=== PATIENT | female | born 1940 | race Caucasian/White ===

== ENCOUNTER → 2018-01-21 | Outpatient (CLI) | payer OTHER | END | disposition home or self-care (01) | LOC: C.MAMM 09:22 | PROVIDERS: ATTEND Physician Assistant | DX: M85.88 Other specified disorders of bone density and structure, other site (principal) ==

== ENCOUNTER 2019-01-28 20:38 | Inpatient (IN) ==
[2019-01-28] MEDS ORDERED: SODIUM CHLORIDE 0.9% 500 ML IV SCH (21:30)
[2019-01-28 21:40] LABS: Basophils # (auto) 0.03 K/uL (0-0.2); Basophils % (auto) 0.3 %; Eosinophils # (auto) 0.29 K/uL (0-0.5); Eosinophils % (auto) 3.1 %; Hematocrit (blood only) 31.2 % (37-47); Hemoglobin 9.4 g/dL (12.0-16.0); Immature Granulocytes # (auto) 0.01 K/uL (0.00-0.02); Immature Granulocytes % (auto) 0.1 %; Lymphocytes # (auto) 2.69 K/uL (1.2-3.4); Lymphocytes % (auto) 28.5 %; Mean Corpuscular Hgb Conc 30.1 g/dL (32-36); Mean Corpuscular Volume 83.6 fL (80-100); Monocytes % (auto) 9.5 %; Neutrophils # (auto) 5.53 K/uL (1.4-6.5); Neutrophils % (auto) 58.5 %; Platelet Count 388 K/uL (130-400); RDW Coefficient of Variation 20.1 % (11.5-14.5); RDW Standard Deviation 61.9 fL (36.4-46.3); Red Blood Count 3.73 M/uL (4.2-5.4); White Blood Count 9.45 K/uL (4.8-10.8)
--- NOTE | 2019-01-28 21:47 | XRay Report ---
XR chest 1V portable CLINICAL HISTORY: 78 years-old Female presenting with pain. TECHNIQUE: Portable upright AP view of the chest was obtained. COMPARISON: None. FINDINGS: Atherosclerosis of the aortic arch. Cardiac silhouette enlarged. Pulmonary vasculature prominence. Ba ndlike opacities at the lung bases, left greater than right. No large effusion or pneumothorax. Degen erative changes of the thoracic spine. IMPRESSION: 1. Cardiomegaly with mild volume overload. 2. Extensive bibasilar scarring suspected. Electronically signed by: Sam Pradhan M.D. 01/28/2019 9:46 PM
[2019-01-28 21:52] LABS: Alanine Aminotransferase 30 U/L (12-78); Albumin Level 2.7 gm/dl (3.4-5.0); Aspartate Aminotransferase 27 U/L (15-37); BUN Creatinine Ratio 19.7 (10-20); Blood Urea Nitrogen 15 mg/dl (7-18); Calcium 8.6 mg/dl (8.5-10.1); Carbon Dioxide 29 mmol/L (21-32); Chloride 100 mmol/L (98-107); Creatinine Clr Calc Pharmacy 51.8 ml/min; Est GFR (African American) 89.7; Est GFR (Non-African American) 77.4; Glucose 99 mg/dl (70-99); Partial Thromboplastin Ratio 0.9; Partial Thromboplastin Time 23.4 Seconds (21.0-31.0); Potassium 4.1 mmol/L (3.5-5.1); Prothrombin Time 10.6 Seconds (9.0-12.0); Sodium 135 mmol/L (136-145)
[2019-01-28 21:57] LABS: Albumin Globulin Ratio 0.5 (0.9-2); Alkaline Phosphatase 195 U/L (45-117); Bilirubin,Total 0.3 mg/dl (0.2-1); Globulin 5.6 gm/dl (2.5-4.0); Total Protein 8.3 gm/dl (6.4-8.2); Troponin I < 0.015 ng/ml (0-0.045)
[2019-01-28 21:59] LABS: Hypochromasia Present
[2019-01-28] MEDS ORDERED: IOVERSOL 100ml IV PRN (22:00)
--- NOTE | 2019-01-28 22:18 | CT Scan Report ---
CT abd pelvis IV con only CLINICAL HISTORY: 78 years-old Female presenting with RLQ pain. TECHNIQUE: Multidetector CT of the abdomen and pelvis was performed after the administration of intra venous contrast. IV contrast: 90 mL of Optiray 320. One or more dose lowering techniques were used co nsistent with the principles of ALARA (as low as reasonably achievable), including automatic exposure control, mA or kV adjustment to individual patient size, and/or use of iterative reconstruction. COMPARISON: None. CT DOSE (mGy.cm): The estimated cumulative dose is 275.00 mGy.cm. FINDINGS: Gas Check Pad Maker topogram: Cholecystectomy clips. Lung bases: Mitral annular calcification. Top normal heart size. No pericardial or pleural effusion. Minimal dependent changes likely atelectasis. Liver: Normal morphology. No liver lesion. Patent hepatic vasculature. Biliary: Mild biliary ductal prominence likely a reservoir effect in the post cholecystectomy state. Gallbladder surgically absent. Pancreas: Mild parenchymal atrophy. Spleen: Normal. Adrenal glands: Normal. Kidneys and ureters: Well-defined hypodense lesion arising from the upper pole of the left kidney lik dennis simple cyst. Additional smaller simple cyst at the lower pole of the left kidney. No nephrolithia sis or hydronephrosis. Ureters nondistended. Bladder: The configuration of the bladder suggests pelvic ligamentous laxity. Bladder otherwise joselo l. Pelvic organs: Uterus and ovaries normal. Bowel: Significant circumferential wall thickening along and extended length of ascending colon with pericolonic fat infiltration. Enhancing nodular soft tissue within the mesentery (series 3 image 223) . The appendix is normal. No bowel obstruction. Peritoneal cavity: No free fluid or intraperitoneal gas. Lymph nodes: Pathologically enlarged and heterogeneously enhancing lymph lymph nodes in the right mid abdominal mesentery the largest measures 10 mm in short axis. Vasculature: Atherosclerosis of the normal caliber abdominal aorta. IVC patent. Abdominal wall: Normal. Musculoskeletal: Degenerative changes of the spine. IMPRESSION: 1. An extended length of circumferential wall thickening of the ascending colon with associated nodu lar infiltrative soft tissue extending into the mesentery and associated lymphadenopathy in the mesen irving. This represents a primary colonic neoplasm until probe and otherwise. No other sites of metasta ses in the abdomen or pelvis. Gastroenterology consultation for colonoscopy recommended. The report will be called/faxed according to standard departmental protocol. Electronically signed by: Sam Pradhan M.D. 01/28/2019 10:17 PM
[2019-01-28] MEDS ORDERED: POLYETHYLENE (MIRALAX) 17 GM PACK PO ONE (22:22)
--- NOTE | 2019-01-28 22:59 | Emergency Department Note ---
Entered by Yury Sawyer acting as a scribe for Edgard Miller DO History of Present Illness General Chief complaint: Back Injury/Pain Stated complaint: RIGHT SIDE PAIN BACK PAIN, SOB Time Seen by Provider: 01/28/19 21:08 Source: patient History of Present Illness Provider complaint: Right flank pain Onset (ago): week(s) (1.5 weeks ) Location: right (Flank) Radiation: back and abdomen Pain Consistency: + constant Maximum Pain Intensity: 6 Exacerbated By: + movement Associated symptoms: + cough, + shortness of breath and + other (No hematochezia); no chest pain and no nausea/vomiting The patient is a 78 year old female who presents to the Emergency Room with complaints of constant right flank pain that started about a week and a half ago. The pain radiates to her back and her right lower quadrant. She states that moving makes the pain worse and nothing has made it better, however she did not try any medications. The patient also mentioned that eating does not affect the pain. She does have a history of being anemic and states recently she was at the doctors and two of her stool samples came back positive for blood. However, she currently denies any hematochezia as well as any nausea, vomiting, or diarrhea. The patient's family at bedside also noted that she becomes short of breath at times because of her anemia. The patient does still have her appendix. Home Medications Home Medications Medication Instructions Recorded Confirmed Type aspirin 81 mg PO DAILY 01/28/19 01/28/19 History atorvastatin 40 mg PO DAILY 01/28/19 01/28/19 History omeprazole 20 mg PO BID 01/28/19 01/28/19 History Past Med/Surg History Medical History Anemia Heme positive stool Surgical History Hx of cholecystectomy Family History Other Family history non-contributory Social History Feels Safe at Home: Yes Smoking Status: Former smoker Review of Systems See HPI for pertinent positives & negatives. and A total of 10 systems reviewed and were otherwise negative Physical Exam Vital Signs Vital Signs - 24 hr 01/28/19 20:43 01/28/19 23:49 01/29/19 00:36 Temperature 37.5 C Temperature Source Oral Sepsis Recent Fever Within 48 Hours No Sepsis Action Taken by Nursing No Action Required Pulse Rate 98 H 88 Pulse Rate [Right Finger] 85 Respiratory Rate 20 19 19 Respiratory Effort / Characteristics Non-Labored Respiratory Depth Normal Blood Pressure 151/89 H 151/89 H Blood Pressure [Left Arm] 150/99 H Blood Pressure Mean 109 Blood Pressure Mean [Left Arm] 116 Pulse Oximetry 98 95 99 Oxygen Delivery Method Room Air Nasal Cannula 01/29/19 00:51 Temperature Temperature Source Sepsis Recent Fever Within 48 Hours Sepsis Action Taken by Nursing Pulse Rate Pulse Rate [Right Finger] 92 H Respiratory Rate 20 Respiratory Effort / Characteristics Respiratory Depth Blood Pressure Blood Pressure [Left Arm] 138/79 Blood Pressure Mean Blood Pressure Mean [Left Arm] 98 Pulse Oximetry 93 Oxygen Delivery Method GENERAL: Patient is awake alert in no acute distress patient is resting comfortably and showing no signs of anxiety EYES: The conjunctivae are clear. The pupils are round and reactive. EARS, NOSE, MOUTH AND THROAT: The nose is without any evidence of any deformity. Mucous membranes are moist tongue is midline NECK: The neck is nontender and supple. RESPIRATORY: Normal respiratory effort is noted there is no evidence of wheezing rhonchi or rales CARDIOVASCULAR: Regular rate and rhythm noted there no murmurs rubs or gallops normal S1 normal S2 GASTROINTESTINAL: The abdomen is soft and mildly distended. There is right lower quadrant tenderness to palpation. There is fullness in the right lower quadrant to palpation. MUSCULOSKELETAL/EXTREMITIES: There is no evidence of gross deformity full range of motion is noted in the hips and shoulders SKIN: There is no obvious evidence of any rash. There are no petechiae, pallor o r cyanosis noted. NEUROLOGIC: Patient is awake alert and oriented x3. Course 2119: Past medical records reviewed. The patient was evaluated in room C12B, and a complete history and physical examination were performed. 223: I spoke to Dr. Camacho ESCOBAR about the patient's case and he recommends that she receive a direct colonoscopy for biopsy followed by a surgical follow up as an outpatient. She can also stay as an inpatient if she would like. 2245: I spoke to the patient and she would feel more comfortable staying in the hospital. 2250: I spoke to Dr. Rausch - [facility] Hospitalist about the patient's case and she is going to accept her for further evaluation. Consultations Consultation #1: I spoke to Dr. Camacho ESCOBAR about the patient's case and he recommends that she receive a direct colonoscopy for biopsy followed by a surgical follow up as an outpatient. She can also stay as an inpatient if she would like. Time: 22:36 Consultation #2: I spoke to Dr. Rausch - [facility] Hospitalist about the patient's case and she is going to accept her for further evaluation. Time: 22:50 Administered Medications Ioversol (Optiray 320 100ml) 90 ml IV ONCE PRN PRN Reason: Interaction Checking Stop: 02/01/19 21:59 Last Admin: 01/28/19 22:01 Dose: 90 ml Documented by: [id number] Discontinued Medications Sodium Chloride (Nss) 500 mls @ 999 mls/hr IV .Q31M SRIDHAR Stop: 01/28/19 22:00 Last Infusion: 01/28/19 22:47 Dose: 0 mls/hr Documented by: [id number] Admin: 01/28/19 21:27 Dose: 999 mls/hr Documented by: [id number] Polyethylene Glycol (Miralax Powder Packet) 17 gm PO DAILY ONE Stop: 01/28/19 22:23 Last Admin: 01/28/19 22:32 Dose: Not Given Documented by: [id number] Medical Decision Making Differential Diagnosis Differential diagnoses includes but is not limited to gastritis, peptic ulcer disease, GERD, gallbladder disease, pancreatitis, small bowel obstruction, acute coronary syndrome, pericarditis, ischemic bowel, irritable bowel disease, irritable bowel syndrome, appendicitis, diverticulitis, malignancy, hernia, urinary tract infection, torsion, perforation, trauma, infectious. Medical Records Attestation: I reviewed the patient's medical records. Home Medications Current Medication List: was personally reviewed by me Laboratory Data Attestation: I reviewed the patient's lab results. Result diagrams: 01/28/19 21:08 01/28/19 21:08 Lab Results 01/28/19 01/28/19 01/28/19 Range/Units 21:08 21:08 21:08 WBC 9.45 (4.8-10.8) K/uL RBC 3.73 L (4.2-5.4) M/uL Hgb 9.4 L (12.0-16.0) g/dL Hct 31.2 L (37-47) % MCV 83.6 (80-100) fL MCH 25.2 (25-34) pg MCHC 30.1 L (32-36) g/dL RDW Std Deviation 61.9 H (36.4-46.3) fL RDW Coeff of Lizzie 20.1 H (11.5-14.5) % Plt Count 388 (130-400) K/uL MPV 9.0 (7.4-10.4) fL Immature Gran % (Auto) 0.1 % Neut % (Auto) 58.5 % Lymph % (Auto) 28.5 % Villalba % (Auto) 9.5 % Eos % (Auto) 3.1 % Baso % (Auto) 0.3 % Immature Gran # (Auto) 0.01 (0.00-0.02) K/uL Neut # (Auto) 5.53 (1.4-6.5) K/uL Lymph # (Auto) 2.69 (1.2-3.4) K/uL Villalba # (Auto) 0.90 H (0.11-0.59) K/uL Eos # (Auto) 0.29 (0-0.5) K/uL Baso # (Auto) 0.03 (0-0.2) K/uL Hypochromasia Present PT 10.6 (9.0-12.0) Seconds INR 1.0 (0.9-1.1) APTT 23.4 (21.0-31.0) Seconds PTT Ratio 0.9 Sodium 135 L (136-145) mmol/L Potassium 4.1 (3.5-5.1) mmol/L Chloride 100 (98-107) mmol/L Carbon Dioxide 29 (21-32) mmol/L Anion Gap 6.0 (3-11) BUN 15 (7-18) mg/dl Creatinine 0.75 (0.6-1.2) mg/dl Est Cr Clr Drug Dosing 51.8 ml/min Est GFR ( Amer) 89.7 Est GFR (Non-Af Amer) 77.4 BUN/Creatinine Ratio 19.7 (10-20) Glucose 99 (70-99) mg/dl Calcium 8.6 (8.5-10.1) mg/dl Total Bilirubin 0.3 (0.2-1) mg/dl AST 27 (15-37) U/L ALT 30 (12-78) U/L Alkaline Phosphatase 195 H (45-117) U/L Troponin I < 0.015 (0-0.045) ng/ml Total Protein 8.3 H (6.4-8.2) gm/dl Albumin 2.7 L (3.4-5.0) gm/dl Globulin 5.6 H (2.5-4.0) gm/dl Albumin/Globulin Ratio 0.5 L (0.9-2) Lipase 99 (73-393) U/L Carcinoembryonic Ag (0-2.5) ng/ml 01/28/19 Range/Units 21:08 WBC (4.8-10.8) K/uL RBC (4.2-5.4) M/uL Hgb (12.0-16.0) g/dL Hct (37-47) % MCV (80-100) fL MCH (25-34) pg MCHC (32-36) g/dL RDW Std Deviation (36.4-46.3) fL RDW Coeff of Lizzie (11.5-14.5) % Plt Count (130-400) K/uL MPV (7.4-10.4) fL Immature Gran % (Auto) % Neut % (Auto) % Lymph % (Auto) % Villalba % (Auto) % Eos % (Auto) % Baso % (Auto) % Immature Gran # (Auto) (0.00-0.02) K/uL Neut # (Auto) (1.4-6.5) K/uL Lymph # (Auto) (1.2-3.4) K/uL Villalba # (Auto) (0.11-0.59) K/uL Eos # (Auto) (0-0.5) K/uL Baso # (Auto) (0-0.2) K/uL Hypochromasia PT (9.0-12.0) Seconds INR (0.9-1.1) APTT (21.0-31.0) Seconds PTT Ratio Sodium (136-145) mmol/L Potassium (3.5-5.1) mmol/L Chloride (98-107) mmol/L Carbon Dioxide (21-32) mmol/L Anion Gap (3-11) BUN (7-18) mg/dl Creatinine (0.6-1.2) mg/dl Est Cr Clr Drug Dosing ml/min Est GFR ( Amer) Est GFR (Non-Af Amer) BUN/Creatinine Ratio (10-20) Glucose (70-99) mg/dl Calcium (8.5-10.1) mg/dl Total Bilirubin (0.2-1) mg/dl AST (15-37) U/L ALT (12-78) U/L Alkaline Phosphatase (45-117) U/L Troponin I (0-0.045) ng/ml Total Protein (6.4-8.2) gm/dl Albumin (3.4-5.0) gm/dl Globulin (2.5-4.0) gm/dl Albumin/Globulin Ratio (0.9-2) Lipase (73-393) U/L Carcinoembryonic Ag < 0.5 (0-2.5) ng/ml Imaging Data Radiologist's Impression: Radiology results as stated below per my review and th e radiologist's interpretation: XR chest 1V portable CLINICAL HISTORY: 78 years-old Female presenting with pain. TECHNIQUE: Portable upright AP view of the chest was obtained. COMPARISON: None. FINDINGS: Atherosclerosis of the aortic arch. Cardiac silhouette enlarged. Pulmonary vasculature prominence. Bandlike opacities at the lung bases, left greater than right. No large effusion or pneumothorax. Degenerative changes of the thoracic spine. IMPRESSION: 1. Cardiomegaly with mild volume overload. 2. Extensive bibasilar scarring suspected. Electronically signed by: Sam Pradhan M.D. 01/28/2019 9:[address] abd pelvis IV con only CLINICAL HISTORY: 78 years-old Female presenting with RLQ pain. TECHNIQUE: Multidetector CT of the abdomen and pelvis was performed after the administration of intravenous contrast. IV contrast: 90 mL of Optiray 320. One or more dose lowering techniques were used consistent with the principles of ALARA (as low as reasonably achievable), including automatic exposure control, mA or kV adjustment to individual patient size, and/or use of iterative reconstruction. COMPARISON: None. CT DOSE (mGy.cm): The estimated cumulative dose is 275.00 mGy.cm. FINDINGS: Automation Manager topogram: Cholecystectomy clips. Lung bases: Mitral annular calcification. Top normal heart size. No pericardial or pleural effusion. Minimal dependent changes likely atelectasis. Liver: Normal morphology. No liver lesion. Patent hepatic vasculature. Biliary: Mild biliary ductal prominence likely a reservoir effect in the post cholecystectomy state. Gallbladder surgically absent. Pancreas: Mild parenchymal atrophy. Spleen: Normal. Adrenal glands: Normal. Kidneys and ureters: Well-defined hypodense lesion arising from the upper pole of the left kidney likely simple cyst. Additional smaller simple cyst at the lower pole of the left kidney. No nephrolithiasis or hydronephrosis. Ureters nondistended. Bladder: The configuration of the bladder suggests pelvic ligamentous laxity. Bladder otherwise normal. Pelvic organs: Uterus and ovaries normal. Bowel: Significant circumferential wall thickening along and extended length of ascending colon with pericolonic fat infiltration. Enhancing nodular soft tissue within the mesentery (series 3 image 223). The appendix is normal. No bowel obstruction. Peritoneal cavity: No free fluid or intraperitoneal gas. Lymph nodes: Pathologically enlarged and heterogeneously enhancing lymph lymph nodes in the right mid abdominal mesentery the largest measures 10 mm in short axis. Vasculature: Atherosclerosis of the normal caliber abdominal aorta. IVC patent. Abdominal wall: Normal. Musculoskeletal: Degenerative changes of the spine. IMPRESSION: 1. An extended length of circumferential wall thickening of the ascending colon with associated nodular infiltrative soft tissue extending into the mesentery and associated lymphadenopathy in the mesentery. This represents a primary colonic neoplasm until probe and otherwise. No other sites of metastases in the abdomen or pelvis. Gastroenterology consultation for colonoscopy recommended. The report will be called/faxed according to standard departmental protocol. Electronically signed by: Sam Pradhan M.D. 01/28/2019 10:17 PM ECG Data Attestation: I personally reviewed and interpreted this ECG as follows: Indication: abdominal pain Rate (beats per minute): 92 Rhythm: normal sinus Findings: + LBBB; no PVC Comparison ECG Date: no prior available Blood Pressure Blood Pressure Findings: Elevated blood pressure Blood Pressure Disposition: further management by hospitalist CHRIS Garcia The patient is a 78-year-old female who presented to the emergency department for an evaluation of right lower quadrant abdominal pain. The patient is currently being worked up for anemia and heme positive stools. She is scheduled for a colonoscopy in February. I discussed the patient's laboratory and radiographic studies with her. She was treated with IV fluids in the emergency department. At this time she does appear to have a rather large right-sided colon mass which appears to be consistent with neoplasm. I discussed the patient's condition with her primary electric welder helper. At this time he does recommend that we consider having the patient stay as an inpatient for inpatient colonoscopy with follow-up surgical evaluation if this appears to be amenable to surgical treatment. I discussed this plan with the patient and her family. They are agreeable to this plan. I also discussed this case with the [facility] hospitalist group. They have agreed to evaluate patient in the emergency department for further management and disposition. Impression & Plan Colonic mass, Abdominal pain Discharge Plan Visit Data Chief Complaint: Back Injury/Pain Stated Complaint: RIGHT SIDE PAIN BACK PAIN, SOB ED Provider: Edgard Miller Discharge Problem: Colonic mass, Abdominal pain Patient Disposition: Being Evaluated by Hospitalist Discharge Instructions Interventions: ED Discharge Assessment Last Done: 01/29/19 00:36 Forms Stand Alone Forms: My [facility] Prescriptions Prescriptions: No Action aspirin 81 mg Tablet,Delayed Release (Dr/Ec) 81 mg PO DAILY RF: 0 omeprazole 20 mg capsule,delayed release(DR/EC) 20 mg PO BID RF: 0 atorvastatin 40 mg Tablet 40 mg PO DAILY RF: 0 Referrals Referrals: Suze Polanco DO [Primary Care Provider] - Discharge Problem: Abdominal pain Qualifiers: Abdominal location: unspecified location Qualified Code(s): R10.9 - Unspecified abdominal pain The scribe's documentation has been prepared under my direction and personally reviewed by me in its entirety. I confirm that the note above accurately reflects all work, treatment, procedures, and medical decision making performed by me.
--- NOTE | 2019-01-28 23:33 | History & Physical Report ---
Date of Service January 28, 2019 Assessment & Plan (1) Abdominal pain: 78-year-old female with right-sided colon mass on CT abdomen. With abdominal pain, 10 pound weight loss in the last few months and microcytic anemia. Assessment -Colon mass suspicious for neoplasm Plan -ED doctor discussed with GI, plan for colonoscopy tomorrow by Dr. Sauer -N.p.o., maintenance fluids -Pain control FEN/GI: NPO, IVF NSS @ 80 x 2 bags DVT ppx: SCDs. No chemical anticoag await procedure CODE STATUS: FULL as d/w pt DISPO: Med/surg (2) Colonic mass: (3) Microcytic anemia: H&H 9.4/31.2 no active bleeding at this time likely secondary to mass. Follow. (4) Recent unexplained weight loss: History of Present Illness Chief Complaint: Right-sided abdominal pain, persistent anemia, weight loss Primary Care Provider: Suze Polanco, Patient is a 78-year-old female who presents to the ER due to persistent right- sided abdominal pain. She said it began 1 week ago and has progressively gotten worse. It is constant. She initially had constipation and was put on a bowel regimen which did not change the pain. In the ED on CT scan she was found to have a right-sided mass in the ascending colon. She is being admitted for further evaluation and colonoscopy. Recent history includes iron deficiency anemia as of August 2018 treated with iron supplementation. Stool positive for blood. Seen by Dr. Sauer's office. Plan was for outpatient colonoscopy at the end of next month. She also endorses a 10 pound weight loss since a few months ago. Dr. polanco is her PCP. PMH 1. History of cholecystitis, status post cholecystectomy 2. History of hypothyroidism SH: 1. Cholecystectomy 2. Endarterectomy 3. Eye surgery 4. Tubal ligation Social: Former smoker quit at age 62, [id number] history. Lives with her niece and his . Denies alcohol or drug use. Allergies Allergy/AdvReac Type Severity Reaction Status Date / Time Sulfa (Sulfonamide AdvReac Drowsy Verified 01/29/19 02:03 Antibiotics) Home Medications Home Medications Medication Instructions Recorded Confirmed Type aspirin 81 mg PO DAILY 01/28/19 01/28/19 History atorvastatin 40 mg PO DAILY 01/28/19 01/28/19 History omeprazole 20 mg PO BID 01/28/19 01/28/19 History Past Med/Surg History Medical History Anemia Heme positive stool Surgical History History of bilateral tubal ligation History of eye surgery Hx of cholecystectomy Hx of vascular surgery Family History Other Family history non-contributory Social History Preferred Language: British Communication Ability: Effective Clicker 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 Niece and live in the basement. Other Information That Helps Us Care for You: No Feels Safe at Home: Yes Smoking Status: Former smoker Hx Alcohol Use: No Hx Substance Use: No Review of Systems All systems reviewed & are unremarkable except as noted in HPI & below Physical Exam Vital Signs (Past 24 Hours): Last Vital Signs Temp 37.5 C 01/28/19 20:43 Pulse 98 H 01/28/19 20:43 Resp 20 01/28/19 20:43 BP 151/89 H 01/28/19 20:43 Pulse Ox 98 01/28/19 20:43 Physical Exam: Vitals noted as above and within normal limits . GENERAL: Awake, alert to person, place, and time, nontoxic-appearing, in no distress. Family at bedside. HENT: Normocephalic, atraumatic. Mucus membranes appear moist. EYES: Normal conjunctiva. Sclera non-icteric. EOMI. NECK: Supple. Full range of motion. No JVD RESPIRATORY: Clear to auscultation. Normal work of breathing. CARDIAC: Regular rate, normal rhythm. Extremities warm and well perfused. ABDOMEN: Soft, non-distended. moderate tenderness to palpation RLQ. No rebound or guarding. Bowel sounds are normal. NEURO: No focal gross focal motor deficits noted. Sensation in tact. CN II-XII grossly in tact. SKIN: Rash not present. No jaundice noted. Significant lesions not present. PSYCH: Appropriate mood and affect. Cooperative. Exam as done by Jocelyne Evans MD, [facility] Director. Results & Data Laboratory Results 01/28/19 01/28/19 01/28/19 Range/Units 21:08 21:08 21:08 WBC (4.8-10.8) K/uL RBC (4.2-5.4) M/uL Hgb (12.0-16.0) g/dL Hct (37-47) % MCV (80-100) fL MCH (25-34) pg MCHC (32-36) g/dL RDW Std Deviation (36.4-46.3) fL RDW Coeff of Lizzie (11.5-14.5) % Plt Count (130-400) K/uL MPV (7.4-10.4) fL Immature Gran % (Auto) % Neut % (Auto) % Lymph % (Auto) % [place] % (Auto) % Eos % (Auto) % Baso % (Auto) % Immature Gran # (Auto) (0.00-0.02) K/uL Neut # (Auto) (1.4-6.5) K/uL Lymph # (Auto) (1.2-3.4) K/uL [place] # (Auto) (0.11-0.59) K/uL Eos # (Auto) (0-0.5) K/uL Baso # (Auto) (0-0.2) K/uL Hypochromasia PT 10.6 (9.0-12.0) Seconds INR 1.0 (0.9-1.1) APTT 23.4 (21.0-31.0) Seconds PTT Ratio 0.9 Sodium 135 L (136-145) mmol/L Potassium 4.1 (3.5-5.1) mmol/L Chloride 100 (98-107) mmol/L Carbon Dioxide 29 (21-32) mmol/L Anion Gap 6.0 (3-11) BUN 15 (7-18) mg/dl Creatinine 0.75 (0.6-1.2) mg/dl Est Cr Clr Drug Dosing 51.8 ml/min Est GFR ( Amer) 89.7 Est GFR (Non-Af Amer) 77.4 BUN/Creatinine Ratio 19.7 (10-20) Glucose 99 (70-99) mg/dl Calcium 8.6 (8.5-10.1) mg/dl Total Bilirubin 0.3 (0.2-1) mg/dl AST 27 (15-37) U/L ALT 30 (12-78) U/L Alkaline Phosphatase 195 H (45-117) U/L Troponin I < 0.015 (0-0.045) ng/ml Total Protein 8.3 H (6.4-8.2) gm/dl Albumin 2.7 L (3.4-5.0) gm/dl Globulin 5.6 H (2.5-4.0) gm/dl Albumin/Globulin Ratio 0.5 L (0.9-2) Lipase 99 (73-393) U/L Carcinoembryonic Ag < 0.5 (0-2.5) ng/ml 01/28/19 Range/Units 21:08 WBC 9.45 (4.8-10.8) K/uL RBC 3.73 L (4.2-5.4) M/uL Hgb 9.4 L (12.0-16.0) g/dL Hct 31.2 L (37-47) % MCV 83.6 (80-100) fL MCH 25.2 (25-34) pg MCHC 30.1 L (32-36) g/dL RDW Std Deviation 61.9 H (36.4-46.3) fL RDW Coeff of Lizzie 20.1 H (11.5-14.5) % Plt Count 388 (130-400) K/uL MPV 9.0 (7.4-10.4) fL Immature Gran % (Auto) 0.1 % Neut % (Auto) 58.5 % Lymph % (Auto) 28.5 % [place] % (Auto) 9.5 % Eos % (Auto) 3.1 % Baso % (Auto) 0.3 % Immature Gran # (Auto) 0.01 (0.00-0.02) K/uL Neut # (Auto) 5.53 (1.4-6.5) K/uL Lymph # (Auto) 2.69 (1.2-3.4) K/uL [place] # (Auto) 0.90 H (0.11-0.59) K/uL Eos # (Auto) 0.29 (0-0.5) K/uL Baso # (Auto) 0.03 (0-0.2) K/uL Hypochromasia Present PT (9.0-12.0) Seconds INR (0.9-1.1) APTT (21.0-31.0) Seconds PTT Ratio Sodium (136-145) mmol/L Potassium (3.5-5.1) mmol/L Chloride (98-107) mmol/L Carbon Dioxide (21-32) mmol/L Anion Gap (3-11) BUN (7-18) mg/dl Creatinine (0.6-1.2) mg/dl Est Cr Clr Drug Dosing ml/min Est GFR ( Amer) Est GFR (Non-Af Amer) BUN/Creatinine Ratio (10-20) Glucose (70-99) mg/dl Calcium (8.5-10.1) mg/dl Total Bilirubin (0.2-1) mg/dl AST (15-37) U/L ALT (12-78) U/L Alkaline Phosphatase (45-117) U/L Troponin I (0-0.045) ng/ml Total Protein (6.4-8.2) gm/dl Albumin (3.4-5.0) gm/dl Globulin (2.5-4.0) gm/dl Albumin/Globulin Ratio (0.9-2) Lipase (73-393) U/L Carcinoembryonic Ag (0-2.5) ng/ml Supervising Physician Co-Signing Physician Notes Patient seen and examined, chart reviewed, case discussed with Dr. Evans and I agree with her assessment and plan as above. Briefly, patient is a 78yo female presenting with abdominal pain. She was being worked up outpatient for microcytic anemia, was to have colonoscopy performed by Dr. Sauer in February. RLQ abdominal discomfort with colon mass detected on CT suspicious for malignancy. Patient presently in mild discomfort, otherwise no complaints On exam she is afebrile, hemodynamically stable, NAD, anxious in appearance HEENT: PERRL, anicteric sclera, EOMI, MMM, no JVD, neck supple Heart: +S1/S2, regular, no m/r/g Lungs: CTA, no rales/rhonchi/wheezes Abd: +BS, soft, ND, tender in RLQ with voluntary guarding Ext: no edema labs and images reviewed Assessment/Plan: patient to be seen by Dr. Sauer in AM for possible colonoscopy. Surgical, Onc consultations as appropriate pending results of colo. Remainder of plan as above (1) Abdominal pain Abdominal location: unspecified location Qualified Code(s): R10.9 - Unspecified abdominal pain
[2019-01-29] MEDS ORDERED: ALUMINUM/MAGNESIUM SUSP 30 ML UDC PO PRN (01:05)
[2019-01-29] MEDS ORDERED: ACETAMINOPHEN 325 MG TAB PO PRN (01:05)
[2019-01-29] MEDS: SODIUM CHLORIDE 0.9% 1000ML 1,000 ML IV SCH ×2 (01:51→14:16)
[2019-01-29 05:16] LABS: Appearance Urine Clear (Clear); Bilirubin Urine Negative (Negative); Blood Urine Negative (Negative); Color Urine Yellow; Glucose Urine UA Negative (Negative); Ketones Urine Negative (Negative); Leukocyte Esterase Urine Negative (Negative); Nitrite Urine Negative (Negative); Protein Urine Negative (Negative); Specific Gravity Urine 1.025 (1.000-1.030); Urobilinogen Urine Negative (Negative); pH Urine 7.5 (4.5-7.5)
[2019-01-29 08:22] LABS: Basophils # (auto) 0.02 K/uL (0-0.2); Basophils % (auto) 0.2 %; Eosinophils # (auto) 0.25 K/uL (0-0.5); Eosinophils % (auto) 3.1 %; Hematocrit (blood only) 33.6 % (37-47); Hemoglobin 10.1 g/dL (12.0-16.0); Immature Granulocytes # (auto) 0.01 K/uL (0.00-0.02); Immature Granulocytes % (auto) 0.1 %; Lymphocytes # (auto) 2.15 K/uL (1.2-3.4); Lymphocytes % (auto) 26.5 %; Mean Corpuscular Hgb Conc 30.1 g/dL (32-36); Mean Corpuscular Volume 84.2 fL (80-100); Mean Platelet Volume 8.7 fL (7.4-10.4); Monocytes # (auto) 0.76 K/uL (0.11-0.59); Monocytes % (auto) 9.4 %; Neutrophils # (auto) 4.93 K/uL (1.4-6.5); Neutrophils % (auto) 60.7 %; Platelet Count 366 K/uL (130-400); RDW Standard Deviation 61.6 fL (36.4-46.3); Red Blood Count 3.99 M/uL (4.2-5.4); White Blood Count 8.12 K/uL (4.8-10.8)
[2019-01-29 08:31] LABS: Prothrombin Time 10.7 Seconds (9.0-12.0)
[2019-01-29 08:59] LABS: BUN Creatinine Ratio 14.9 (10-20); Calcium 8.7 mg/dl (8.5-10.1); Creatinine Clr Calc Pharmacy 61.4 ml/min; Est GFR (Non-African American) 87.1; Potassium 3.9 mmol/L (3.5-5.1)
--- NOTE | 2019-01-29 10:00 | Gastrointestinal Consultation ---
Date of Consultation January 29, 2019 Assessment & Plan (1) Recent unexplained weight loss: (2) Microcytic anemia: (3) Abdominal pain: (4) Abnormal CT scan, colon: Given the clinical picture of microcytic anemia, prior heme positivity and abnormal CT imaging, highly concerning for an undelrying colonic malignancy. 1. Clear liquid diet. 2. GoLytely bowel prep this evening. 3. NPO after midnight except meds. 4. Colonoscopy with Dr. Sauer tomorrow for further evaluation. 5. Additional recommendations pending results of testing. Supervising Physician Co-Signing Physician Notes Agree with KIM Cruz as above Abd: Soft, Tender RUQ and RLQ, ND, +BS Continue supportive care Bowel prep tonight with colonoscopy tomorrow History of Present Illness Reason for Consultation: Colon Mass Requesting Physician: Dr. Evans Attending Physician: Liz Grossman MD History of Present Illness Patient is a pleasant 78 year-old female with a history of unintentional weight loss and microcytic anemia diagnosed in November of this year. She was referred by her PCP to Maria Alejandra Knapp PA-C in our office for further evaluation in December. Due to heme positive stool, Maria Alejandra had ordered both an EGD and colonoscopy for further evaluation. Testing was scheduled for early February. Prior to testing, however, patient states she has developed abdominal pain in the right lower quadrant that began 1 week prior to arrival. Concerned, she presented to the ER. Patient describes the pain as a dull ache. At rest, there is no pain but she states that sneezing, coughing or movement with induce a 5/10 pain in the RLQ without radiation. No nausea or vomiting, no diarrhea but she states she has not had a bm in 2 days. No overt GIB symptoms at present. CT imaging was performed and has demonstrated "significant circumferential wall thickening" involving the ascending colon with associated fat standing extending into the mesentary. This finding was concerning for a colon malignancy. Allergies Allergy/AdvReac Type Severity Reaction Status Date / Time Sulfa (Sulfonamide AdvReac Drowsy Verified 01/29/19 02:03 Antibiotics) Home Medications Home Medications Medication Instructions Recorded Confirmed Type aspirin 81 mg PO DAILY 01/28/19 01/28/19 History atorvastatin 40 mg PO DAILY 01/28/19 01/28/19 History omeprazole 20 mg PO BID 01/28/19 01/28/19 History Patient History Medical History Anemia Heme positive stool Surgical History History of bilateral tubal ligation History of eye surgery Hx of cholecystectomy Hx of vascular surgery Family History Other Family history non-contributory Social History Communication Ability: Effective Beliefs That Will Affect Care: Christianity marital status: Current Living Situation: Alone Current Living Situation Comment: Lives alone upstairs in home. Niece and live in the basement. Other Information That Helps Us Care for You: No Feels Safe at Home: Yes Smoking Status: Former smoker Hx Alcohol Use: No Hx Substance Use: No Review of Systems Constitutional: + fatigue Eyes: no problem reported Ear, Nose, Mouth, Throat: no problem reported Respiratory: no cough and no dyspnea Cardiovascular: no chest pain and no palpitations Gastrointestinal: as per Subjective / HPI Genitourinary (Female): no problem reported Musculoskeletal: no problem reported Integumentary: no problem reported Neurologic: no problem reported Psychiatric: no problem reported Physical Exam Vital Signs (Past 24 Hours): Last Vital Signs Temp 37.1 C 01/29/19 07:32 Pulse 77 01/29/19 07:32 Resp 15 01/29/19 07:32 BP 131/70 01/29/19 07:32 Pulse Ox 94 01/29/19 07:32 Constitutional: WD/WN, vitals as above Eyes: EOM intact bilaterally Respiratory: normal respiratory effort, lungs clear to auscultation Cardiovascular: Rate/Rhythm: regular rate and regular rhythm Gastrointestinal (Abdomen): Inspection/Auscultation: normal bowel sounds Percussion/Palpation: + abdomen tender (right sided) and abdomen soft; no guarding and abdomen not firm Musculoskeletal: no edema Skin: no rashes, warm and dry Psychiatric: A+Ox3, euthymic affect Results & Data Laboratory Results Abnormal lab results 01/28/19 01/28/19 01/29/19 Range/Units 21:08 21:08 08:09 RBC 3.73 L 3.99 L (4.2-5.4) M/uL Hgb 9.4 L 10.1 L (12.0-16.0) g/dL Hct 31.2 L 33.6 L (37-47) % MCHC 30.1 L 30.1 L (32-36) g/dL RDW Std Deviation 61.9 H 61.6 H (36.4-46.3) fL RDW Coeff of Lizzie 20.1 H 20.0 H (11.5-14.5) % [place] # (Auto) 0.90 H 0.76 H (0.11-0.59) K/uL Sodium 135 L (136-145) mmol/L Alkaline Phosphatase 195 H (45-117) U/L Total Protein 8.3 H (6.4-8.2) gm/dl Albumin 2.7 L (3.4-5.0) gm/dl Globulin 5.6 H (2.5-4.0) gm/dl Albumin/Globulin Ratio 0.5 L (0.9-2) (1) Abdominal pain Abdominal location: unspecified location Qualified Code(s): R10.9 - Unspecified abdominal pain
[2019-01-29 10:24] LABS: Anisocytosis Present
--- NOTE | 2019-01-29 17:28 | Family Medicine Progress Note ---
Date of Service January 29, 2019 Assessment & Plan (1) Abnormal CT scan, colon: (2) Abdominal pain: (3) Microcytic anemia: (4) Recent unexplained weight loss: 78 y/o F with right-sided colon mass on CT abdomen here with abdominal pain, 10 pound weight loss in the last few months and microcytic anemia. Colon mass suspicious for neoplasm -GI consulted. For colonoscopy in am. -on clear liquids today. -Pain control -IVF Microcytic anemia -MCV normal. h/h stable. follow. -takes 81mg aspirin at home. holding Hyperlipidemia - on statin at home. hold FEN/GI: NPO, IVF NSS @ 80 x 2 bags DVT ppx: SCDs. No chemical anticoag await procedure CODE STATUS: FULL as d/w pt DISPO: Med/surg Subjective denies any concerns overnight. had been walking the hallway. looking forward to getting the scope done tomorrow. Respiratory: no dyspnea Cardiovascular: no chest pain with activity and no dyspnea at rest Gastrointestinal: no abdominal pain Physical Exam Vital Signs (Past 24 Hours): Last Vital Signs Temp 37.7 C H 01/29/19 15:29 Pulse 82 01/29/19 15:29 Resp 18 01/29/19 15:29 BP 148/79 H 01/29/19 15:29 Pulse Ox 93 01/29/19 15:29 Constitutional: WD/WN, vitals as above Respiratory: normal respiratory effort, lungs clear to auscultation Cardiovascular: RRR, no murmur, no edema Gastrointestinal (Abdomen): normal bowel sounds, soft, nontender, no hepatosplenomegaly Results & Data Laboratory Results Laboratory Tests 01/29/19 01/29/19 08:09 08:09 WBC 8.12 Hgb 10.1 L Plt Count 366 Sodium 136 (1) Abdominal pain Abdominal location: unspecified location Qualified Code(s): R10.9 - Unspecified abdominal pain
[2019-01-29] MEDS ORDERED: LAVAGE SOLUTION 4000ML PO SCH (18:00)
[2019-01-29] MEDS: LAVAGE SOLUTION 4000ML PO SCH (19:30)
[2019-01-30] MEDS: LAVAGE SOLUTION 4000ML PO SCH (02:32)
[2019-01-30] MEDS ORDERED: ONDANSETRON INJ 2 MG/ML 2 ML VIAL IV PRN (05:09)
[2019-01-30 05:47] LABS: BUN Creatinine Ratio 10.4 (10-20); Calcium 8.4 mg/dl (8.5-10.1); Creatinine Clr Calc Pharmacy 56.9 ml/min; Est GFR (African American) 98.5; Potassium 3.3 mmol/L (3.5-5.1)
--- NOTE | 2019-01-30 09:40 | Gastroenterology Progress Note ---
Date of Service January 30, 2019 Assessment & Plan (1) Recent unexplained weight loss: (2) Microcytic anemia: (3) Abdominal pain: (4) Abnormal CT scan, colon: Given the clinical picture of microcytic anemia, prior heme positivity and abnormal CT imaging, highly concerning for an underlying colonic malignancy. 1. NPO for now. 2. Colonoscopy with Dr. Sauer today. 3. Additional recommendations pending results of testing. Supervising Physician Co-Signing Physician Notes Agree with KIM Cruz Abd: Soft, NT, ND, +BS Proceed with colonoscopy Subjective Patient reports feeling hungry. She states she did complete most of her bowel prep solution although she did have an emesis last evening. No other significant complaints at present. Constitutional: + fatigue Gastrointestinal: as per Subjective / HPI Physical Exam Vital Signs (Past 24 Hours): Last Vital Signs Temp 37.1 C 01/30/19 07:18 Pulse 87 01/30/19 07:18 Resp 16 01/30/19 07:18 BP 126/79 01/30/19 07:18 Pulse Ox 96 01/30/19 07:18 Constitutional: WD/WN, vitals as above Respiratory: normal respiratory effort, lungs clear to auscultation Cardiovascular: Rate/Rhythm: regular rate and regular rhythm Gastrointestinal (Abdomen): Inspection/Auscultation: + hyperactive bowel sounds Percussion/Palpation: + abdomen tender (RLQ) and abdomen soft (1) Abdominal pain Abdominal location: unspecified location Qualified Code(s): R10.9 - Unspecified abdominal pain
--- NOTE | 2019-01-30 10:38 | Anesthesiology Consultation ---
Date of Service January 30, 2019 Carotid Endartarectomy Anemia Dyspnea Colon Mass Assessment & Plan (1) Encounter for pre-operative examination: Chart Review Chart Review: Acceptable Risk for Surgery and Patient NOT seen in Pre Admission Testing Consults Requested none ASA ASA3 Proposed Anesthesia Anesthesia Type: MAC Risk / Benefits Reviewed With: PT / POA / Parent / Guardian, Accepts Plan and Informed Consent Obtained NPO Date Last Intake of Fluids: 01/30/19 Time Last Intake of Fluids: 04:30 Date Last Intake of Solids: 01/28/19 Time Last Intake of Solids: 12:00 History Surgery Operation Date: 01/30/19 09:00 Proposed Procedures p Colonoscopy Dr. Camacho aSuer, DO Height/Weight Height: 5 ft Weight: 59.7 kg Allergies Allergy/AdvReac Type Severity Reaction Status Date / Time Sulfa (Sulfonamide AdvReac Drowsy Verified 01/29/19 02:03 Antibiotics) Medications Home Medications Medication Instructions Recorded Confirmed Last Taken aspirin 81 mg PO DAILY 01/28/19 01/28/19 01/28/19 atorvastatin 40 mg PO DAILY 01/28/19 01/28/19 01/27/19 omeprazole 20 mg PO BID 01/28/19 01/28/19 Unknown Past Medical History Medical History Anemia Heme positive stool Past Family History Family History Other Family history non-contributory Past Surgical History Surgical History History of bilateral tubal ligation History of eye surgery Hx of cholecystectomy Hx of vascular surgery Social History Smoking Status: Former smoker tobacco type: cigarettes Do You Dip or Chew Tobacco: No Hx Alcohol Use: No Hx Substance Use: No substance use type: does not use Physical Exam Vital Signs Last Vital Signs Temp 36.9 C 01/30/19 10:33 Pulse 85 01/30/19 10:33 Resp 20 01/30/19 10:33 BP 163/85 H 01/30/19 10:33 Pulse Ox 95 01/30/19 10:33 ENMT Mouth: no TMJ abnormality Thyromental Distance: > or= 3.5 Finger Breadths Mallampati Class: II Neck normal visual inspection Respiratory normal respiratory effort Cardiovascular Rate/Rhythm: regular rate and regular rhythm Neurologic moves all extremities Psychiatric Orientation: alert Testing Laboratory Results 01/29/19 08:09 01/30/19 04:57 PT 10.7 Seconds (9.0-12.0) 01/29/19 08:09 INR 1.0 (0.9-1.1) 01/29/19 08:09 APTT 23.4 Seconds (21.0-31.0) 01/28/19 21:08 Urine Color Yellow 01/29/19 04:37 Urine Appearance Clear (Clear) 01/29/19 04:37 Urine pH 7.5 (4.5-7.5) 01/29/19 04:37 Ur Specific [place] 1.025 (1.000-1.030) 01/29/19 04:37 Urine Protein Negative (Negative) 01/29/19 04:37 Urine Glucose (UA) Negative (Negative) 01/29/19 04:37 Urine Ketones Negative (Negative) 01/29/19 04:37 Urine Nitrite Negative (Negative) 01/29/19 04:37 Ur Leukocyte Esterase Negative (Negative) 01/29/19 04:37
[2019-01-30] MEDS ORDERED: LIDOCAINE HCL 2% 2 ML VIAL/AMP(20MG/ML) INFIL ONE (10:43)
[2019-01-30] MEDS ORDERED: MIDAZOLAM HCL 1 MG/ML 2ML VIAL ONE (10:43)
[2019-01-30] MEDS ORDERED: PROPOFOL IV EMULSION 10 MG/ML 20 ML VIAL IV ONE (10:44)
[2019-01-30] MEDS ORDERED: ONDANSETRON INJ 2 MG/ML 2 ML VIAL ONE (10:44)
--- NOTE | 2019-01-30 12:26 | Anesthesiology Progress Note ---
Date of Service January 30, 2019 Anesthesia Post Procedure Vital Signs Vital Signs: Temp Pulse Resp BP BP Pulse Ox 01/30/19 12:10 74 18 125/68 96 01/30/19 11:54 76 16 141/74 H 95 01/30/19 11:39 74 16 136/71 94 01/30/19 10:33 36.9 C 85 20 163/85 H 95 01/30/19 07:18 37.1 C 87 16 126/79 96 01/29/19 23:50 37.2 C 85 17 131/68 91 01/29/19 15:29 37.7 C H 82 18 148/79 H 93 Pain Intensity Right Back: Pain Intensity: 5 Right Abdomen: Pain Intensity: 3 Notes Mental Status: alert / awake / arousable Patient Amnestic to Procedure: Yes Nausea / Vomiting: adequately controlled Pain: adequately controlled Airway Patency, RR, SpO2: stable & adequate BP & HR: stable & adequate Hydration State: stable & adequate Anesthetic Complications: no major complications apparent
--- NOTE | 2019-01-30 13:43 | GI REPORT ---
Patient Name: Monserrat Cortez Procedure Date: 01/30/2019 10:44 AM Date of : 1940 Admit Type: Inpatient Age: 78 Gender: Female Attending MD: Jimmy Sauer DO Procedure: Colonoscopy Providers: Jimmy Sauer DO Referring MD: Suze Polanco Indications: Iron deficiency anemia secondary to chronic blood loss, Abnormal CT of the GI tract Medicines: Monitored Anesthesia Care Complications: No immediate complications. Estimated Blood Loss: Estimated blood loss: none. Procedure: Pre-Anesthesia Assessment: - Prior to the procedure, a History and Physical was performed, and patient medications and allergies were reviewed. The patient's tolerance of previous anesthesia was also reviewed. The risks and benefits of the procedure and the sedation options and risks were discussed with the patient. All questions were answered, and informed consent was obtained. Prior Anticoagulants: The patient has taken aspirin, last dose was 2 days prior to procedure. ASA Grade Assessment: III - A patient with severe systemic disease. After reviewing the risks and benefits, the patient was deemed in satisfactory condition to undergo the procedure. After I obtained informed consent, the scope was passed under direct vision. Throughout the procedure, the patient's blood pressure, pulse, and oxygen saturations were monitored continuously. The Colonoscope was introduced through the anus with the intention of advancing to the ileum. The scope was advanced to the ascending colon before the procedure was aborted. Medications were given. The colonoscopy was performed without difficulty. The patient tolerated the procedure well. The quality of the bowel preparation was good. The rectum was photographed. Findings: The perianal and digital rectal examinations were normal. An infiltrative partially obstructing large mass was found in the ascending colon. The mass was circumferential. In addition, its diameter measured thirty mm. No bleeding was present. Biopsies were taken with a cold forceps for histology. Non-bleeding internal hemorrhoids were found during retroflexion. The hemorrhoids were small. 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 Biopsied. - Non-bleeding internal hemorrhoids. Recommendation: - [facility]. - Continue present medications. - Clear liquid diet. - Refer to a surgeon today. I did discuss the case in detail with Dr. Yo, who will see the patient later today. Jimmy Sauer DO 01/30/2019 1:42:43 PM This report has been signed electronically. Note Initiated On: 01/30/2019 10:44 AM Number of Addenda: 0 I attest to the content of the Intraoperative Record and orders documented therein, exceptions below {[id number]}
--- NOTE | 2019-01-30 15:42 | Family Medicine Progress Note ---
Date of Service January 30, 2019 Assessment & Plan (1) Abnormal CT scan, colon: (2) Abdominal pain: (3) Microcytic anemia: (4) Recent unexplained weight loss: 78 y/o F with right-sided colon mass on CT abdomen here with abdominal pain, 10 pound weight loss in the last few months and microcytic anemia. Colon mass suspicious for neoplasm -GI consulted. s/p colonoscopy confirming the mass. surgery consulted - to be evaluated later today. -clear liquids. -Pain control -IVF Microcytic anemia -MCV normal. h/h stable. follow. -takes 81mg aspirin at home. holding Hyperlipidemia - on statin at home. hold FEN/GI: Clear liquid and IVF DVT ppx: SCDs. No chemical anticoag await procedure CODE STATUS: FULL as d/w pt DISPO: Med/surg Subjective no new concerns. Respiratory: no dyspnea Cardiovascular: no chest pain Gastrointestinal: no abdominal pain Physical Exam Vital Signs (Past 24 Hours): Last Vital Signs Temp 37.1 C 01/30/19 14:23 Pulse 71 01/30/19 14:23 Resp 16 01/30/19 14:23 BP 156/77 H 01/30/19 14:23 Pulse Ox 91 01/30/19 14:23 Constitutional: WD/WN, vitals as above Respiratory: normal respiratory effort, lungs clear to auscultation Cardiovascular: RRR, no murmur, no edema Gastrointestinal (Abdomen): normal bowel sounds, soft, nontender, no hepatosplenomegaly (1) Abdominal pain Abdominal location: unspecified location Qualified Code(s): R10.9 - Unspecified abdominal pain
--- NOTE | 2019-01-30 17:13 | Surgery Consultation ---
Date of Consultation January 30, 2019 Assessment & Plan (1) Colonic mass: Had a long discussion with her and her daughter at the bedside. We discussed that this almost for sure a colon cancer. We discussed the CT as well as colonoscopy findings. Because she is already prepped and admitted to the hospital we will plan right hemicolectomy this admission. We are planning for Saturday. She will need to stay on clear liquids until then. We discussed the procedure in detail as well as the risks which include bleeding, infection, DVT, PE, AL, CVA, injury to another organ such as ureter, anastomotic leaks or strictures etc. Following all this I answered their questions. We will proceed on Saturday morning with an open right hemicolectomy. History of Present Illness Attending Physician: Liz Grossman MD History of Present Illness Patient presented to the emergency room with right sided abdominal pain. She first noticed it while driving recently back from [place]. She is also been extremely fatigued. Workup has included a CT scan which showed a right colon mass as well as anemia. Colonoscopy today revealed a near obstructing right colon mass. Allergies Allergy/AdvReac Type Severity Reaction Status Date / Time Sulfa (Sulfonamide AdvReac Drowsy Verified 01/29/19 02:03 Antibiotics) Home Medications Home Medications Medication Instructions Recorded Confirmed Type aspirin 81 mg PO DAILY 01/28/19 01/28/19 History atorvastatin 40 mg PO DAILY 01/28/19 01/28/19 History omeprazole 20 mg PO BID 01/28/19 01/28/19 History Patient History Medical History Anemia Heme positive stool Surgical History History of bilateral tubal ligation History of eye surgery Hx of cholecystectomy Hx of vascular surgery Family History Other Family history non-contributory Social History Communication Ability: Effective Beliefs That Will Affect Care: Evangelical marital status: Current Living Situation: Alone Current Living Situation Comment: Lives alone upstairs in home. Niece and live in the basement. Other Information That Helps Us Care for You: No Feels Safe at Home: Yes Smoking Status: Former smoker Hx Alcohol Use: No Hx Substance Use: No Review of Systems Constitutional: + fatigue and + weakness Gastrointestinal: + abdominal pain Physical Exam Vital Signs (Past 24 Hours): Last Vital Signs Temp 36.6 C 01/30/19 15:58 Pulse 79 01/30/19 15:58 Resp 17 01/30/19 15:58 BP 136/71 01/30/19 15:58 Pulse Ox 92 01/30/19 15:58 Physical Exam: alert/oriented. nad HEENT: [place]. eomi. Heart: RRR lungs: CTA b/l abd: soft. nt. fullness on right mid-abdomen. nondistended. ext: no c/c/e
[2019-01-30] MEDS: D5NSS + 20MEQ KCL 20 MEQ/1,000 ML BAG IV SCH (17:44)
[2019-01-31] MEDS: D5NSS + 20MEQ KCL 20 MEQ/1,000 ML BAG IV SCH ×2 (05:17→19:09)
[2019-01-31 08:00] LABS: BUN Creatinine Ratio 6.8 (10-20); Calcium 7.9 mg/dl (8.5-10.1); Creatinine Clr Calc Pharmacy 61.4 ml/min; Est GFR (Non-African American) 87.1; Potassium 3.6 mmol/L (3.5-5.1)
--- NOTE | 2019-01-31 12:03 | Surgery Progress Note ---
Date of Service January 31, 2019 Assessment & Plan (1) Colonic mass: doing well clinically plan OR Saturday morning. keep on clears...NPO after midnight saturday Subjective no new complaints/feeling well Physical Exam Vital Signs (Past 24 Hours): Last Vital Signs Temp 37.2 C 01/31/19 07:15 Pulse 73 01/31/19 07:15 Resp 18 01/31/19 07:15 BP 137/67 01/31/19 07:15 Pulse Ox 93 01/31/19 07:15 Physical Exam: alert. nad abd: soft. nt. nd.
--- NOTE | 2019-01-31 13:17 | Family Medicine Progress Note ---
Date of Service January 31, 2019 Assessment & Plan (1) Abnormal CT scan, colon: (2) Abdominal pain: (3) Microcytic anemia: (4) Recent unexplained weight loss: 78 y/o F with right-sided colon mass on CT abdomen here with abdominal pain, 10 pound weight loss in the last few months and microcytic anemia. Colon mass suspicious for neoplasm -s/p colonoscopy confirming the mass. surgery consulted - for surgery on saturday -continue clear liquids. -IVF - decreased rate to 50ml/hr Microcytic anemia -MCV normal. h/h stable. follow. -takes 81mg aspirin at home. holding Hyperlipidemia - on statin at home. hold FEN/GI: Clear liquid and IVF DVT ppx: SCDs. No chemical anticoag await procedure CODE STATUS: FULL as d/w pt DISPO: Med/surg Subjective no new concerns overnight. tolerated clears well. Respiratory: no dyspnea Cardiovascular: no chest pain Gastrointestinal: no abdominal pain Physical Exam Vital Signs (Past 24 Hours): Last Vital Signs Temp 37.2 C 01/31/19 07:15 Pulse 73 01/31/19 07:15 Resp 18 01/31/19 07:15 BP 137/67 01/31/19 07:15 Pulse Ox 93 01/31/19 07:15 Constitutional: WD/WN, vitals as above Respiratory: normal respiratory effort, lungs clear to auscultation Cardiovascular: RRR, no murmur, no edema Gastrointestinal (Abdomen): normal bowel sounds, soft, nontender, no hepatosplenomegaly (1) Abdominal pain Abdominal location: unspecified location Qualified Code(s): R10.9 - Unspecified abdominal pain
--- NOTE | 2019-02-01 13:57 | Surgery Progress Note ---
Date of Service February 01, 2019 Assessment & Plan (1) Colonic mass: plan OR tomorrow for right hemicolectomy questions answered NPO after midnight. Subjective doing well/no new complaints. Physical Exam Vital Signs (Past 24 Hours): Last Vital Signs Temp 36.5 C 02/01/19 07:28 Pulse 76 02/01/19 07:28 Resp 18 02/01/19 07:28 BP 115/75 02/01/19 07:28 Pulse Ox 96 02/01/19 07:28 Physical Exam: alert. nad abd: soft. nt/nd.
[2019-02-01] MEDS: D5NSS + 20MEQ KCL 20 MEQ/1,000 ML BAG IV SCH (15:39)
--- NOTE | 2019-02-02 04:21 | Anesthesiology Consultation ---
Date of Service February 02, 2019 Assessment & Plan (1) Encounter for pre-operative examination: Chart Review Chart Review: Acceptable Risk for Surgery and Patient NOT seen in Pre Admission Testing Consults Requested none NPO Date Last Intake of Fluids: 02/01/19 Time Last Intake of Fluids: 23:59 Date Last Intake of Solids: 01/28/19 Time Last Intake of Solids: 12:00 History Surgery Operation Date: 01/30/19 09:00 Proposed Procedures p Colonoscopy Dr. Sauer - Jimmy Sauer DO Operation Date: 02/02/19 07:15 Proposed Procedures p Right Extended Hemicolectomy - Festus Yo DO Height/Weight Height: 5 ft Weight: 59.7 kg Allergies Allergy/AdvReac Type Severity Reaction Status Date / Time Sulfa (Sulfonamide AdvReac Drowsy Verified 01/29/19 02:03 Antibiotics) Medications Home Medications Medication Instructions Recorded Confirmed Last Taken aspirin 81 mg PO DAILY 01/28/19 01/28/19 01/28/19 atorvastatin 40 mg PO DAILY 01/28/19 01/28/19 01/27/19 omeprazole 20 mg PO BID 01/28/19 01/28/19 Unknown Active Medications Generic Name Dose Route Start Last Admin Trade Name Freq PRN Reason Stop Dose Admin Potassium Chloride/Dextrose/Sod Cl 20 meq in 1,000 mls @ 50 mls/hr 01/30/19 17:15 02/01/19 15:39 D5nss + 20meq Kcl IV 03/01/19 17:14 50 mls/hr .Q20H SRIDHAR Administration Past Medical History Medical History Anemia Heme positive stool Past Family History Family History Other Family history non-contributory Past Surgical History Surgical History History of bilateral tubal ligation History of eye surgery Hx of cholecystectomy Hx of vascular surgery Social History Smoking Status: Former smoker tobacco type: cigarettes Do You Dip or Chew Tobacco: No Hx Alcohol Use: No Hx Substance Use: No substance use type: does not use Physical Exam Vital Signs Last Vital Signs Temp 37.4 C 02/01/19 22:55 Pulse 89 02/01/19 22:55 Resp 14 02/01/19 22:55 BP 147/66 H 02/01/19 22:55 Pulse Ox 90 02/01/19 22:55 Testing Electrocardiogram Date: 01/28/19 Findings: + NSR @ (92) and + LBBB Possible left atrial enlargement Chest X-Ray Date: 01/28/19 Atherosclerosis of the aortic arch. Cardiac silhouette enlarged. Pulmonary vasculature prominence. Bandlike opacities at the lung bases, left greater than right. No large effusion or pneumothorax. Degenerative changes of the thoracic spine. IMPRESSION: 1. Cardiomegaly with mild volume overload. 2. Extensive bibasilar scarring suspected. Laboratory Results 01/29/19 08:09 01/31/19 07:06 PT 10.7 Seconds (9.0-12.0) 01/29/19 08:09 INR 1.0 (0.9-1.1) 01/29/19 08:09 APTT 23.4 Seconds (21.0-31.0) 01/28/19 21:08 Urine Color Yellow 01/29/19 04:37 Urine Appearance Clear (Clear) 01/29/19 04:37 Urine pH 7.5 (4.5-7.5) 01/29/19 04:37 Ur Specific [place] 1.025 (1.000-1.030) 01/29/19 04:37 Urine Protein Negative (Negative) 01/29/19 04:37 Urine Glucose (UA) Negative (Negative) 01/29/19 04:37 Urine Ketones Negative (Negative) 01/29/19 04:37 Urine Nitrite Negative (Negative) 01/29/19 04:37 Ur Leukocyte Esterase Negative (Negative) 01/29/19 04:37
--- NOTE | 2019-02-02 06:56 | History & Physical Bridge Note ---
Date of Service February 02, 2019 History & Physical Bridge Note I have examined the patient, reviewed the History & Physical and in the interval since the performance of the History & Physical I have noted the following changes of clinical significance: no changes noted
[2019-02-02] MEDS ORDERED: BUPIVACAINE/EPINEPHRINE 0.5% MPF 1:200,000 30 ML VIAL ONE (07:01)
[2019-02-02] MEDS ORDERED: ACETAMINOPHEN 1000 MG/100 ML IV IV ONE (07:05)
[2019-02-02] MEDS ORDERED: HYDROmorphone INJ 1 MG/ML SYRINGE IV PRN (07:40)
[2019-02-02] MEDS ORDERED: DEXAMETHASONE SOD INJ 4 MG/ML VIAL IV PRN (07:40)
[2019-02-02] MEDS ORDERED: fentaNYL citrate 100 MCG/2 ML VIAL IV PRN (07:40)
[2019-02-02] MEDS ORDERED: ePHEDrine sulfate 50 MG/ML AMP IV PRN (07:40)
[2019-02-02] MEDS ORDERED: ATROPINE SULFATE 0.1 MG/ML 10ML SYR IV PRN (07:40)
[2019-02-02] MEDS ORDERED: ONDANSETRON INJ 2 MG/ML 2 ML VIAL IV PRN (07:40)
[2019-02-02] MEDS ORDERED: fentaNYL citrate 100 MCG/2 ML VIAL ONE (07:52)
[2019-02-02] MEDS ORDERED: PHENYLEPHRINE 100MCG/ML 5ML SYR ONE (07:53)
[2019-02-02] MEDS ORDERED: DEXAMETHASONE SOD INJ 4 MG/ML VIAL ONE (07:53)
[2019-02-02] MEDS ORDERED: LIDOCAINE HCL 2% 2 ML VIAL/AMP(20MG/ML) INFIL ONE (07:53)
[2019-02-02] MEDS ORDERED: ONDANSETRON INJ 2 MG/ML 2 ML VIAL ONE (07:53)
[2019-02-02] MEDS ORDERED: GLYCOPYRROLATE 0.2 MG/ML VIAL ONE (07:53)
[2019-02-02] MEDS ORDERED: ROCURONIUM BROMIDE 10 MG/ML 5 ML VIAL ONE (07:53)
[2019-02-02] MEDS ORDERED: NEOSTIGMINE METHYLSULFATE 5 MG/5 ML SYR ONE (07:53)
[2019-02-02] MEDS ORDERED: PROPOFOL IV EMULSION 10 MG/ML 20 ML VIAL IV ONE (07:53)
[2019-02-02] MEDS ORDERED: cefOXitin 2,000 MG in DEXTROSE 5% 50 ML IV STA (08:07)
--- NOTE | 2019-02-02 08:59 | Post Operative Brief Note ---
Immediate Post Op Note v1 Date of Surgery February 02, 2019 Pre & Post Diagnosis Operation Date: 01/30/19 09:00 Pre-Op Diagnosis: right colon mass Anemia Post-Op Diagnosis: Ascending mass biopsy Operation Date: 02/02/19 07:15 Pre-Op Diagnosis: Colon mass Post-Op Diagnosis: same as preoperative diagnosis Procedure Operation Date: 01/30/19 09:00 Actual Procedures p Colonoscopy Biopsy Cytology - Jimmy Sauer, DO Operation Date: 02/02/19 07:15 Actual Procedures p Right Hemicolectomy(Right) - Festus Yo DO Surgeon Festus Yo DO Counselor/Art Therapist derik Adorno Estimated Blood Loss 20 Findings Consistent with Post-Op Diagnosis Drains Correa Catheter
--- NOTE | 2019-02-02 09:23 | Anesthesiology Progress Note ---
Date of Service February 02, 2019 Anesthesia Post Procedure Vital Signs Vital Signs: Temp Pulse Pulse Pulse Resp BP Pulse Ox 02/02/19 09:15 70 19 145/72 H 99 02/02/19 09:05 68 23 145/69 H 98 02/02/19 08:58 36.9 C 68 21 148/66 H 97 02/02/19 06:47 36.5 C 80 18 156/85 H 93 02/02/19 06:19 37.2 C 77 20 149/84 H 92 02/01/19 22:55 37.4 C 89 14 147/66 H 90 02/01/19 16:47 37.4 C 89 17 139/80 92 Pain Intensity Right Back: Pain Intensity: 5 Right Abdomen: Pain Intensity: 4 Notes Mental Status: alert / awake / arousable and participated in evaluation Patient Amnestic to Procedure: Yes Nausea / Vomiting: adequately controlled Pain: adequately controlled Airway Patency, RR, SpO2: stable & adequate BP & HR: stable & adequate Hydration State: stable & adequate Anesthetic Complications: no major complications apparent
[2019-02-02] MEDS: LACTATED RINGER'S 1,000 ML IV SCH ×2 (10:00→16:55)
[2019-02-02] MEDS ORDERED: HYDROmorphone HCL 0.5MG/ML 50 ML CASSETTE IV PRN (10:08)
[2019-02-02] MEDS ORDERED: SODIUM CHLORIDE 0.9% 1000ML 1,000 ML IV SCH (10:08)
[2019-02-02] MEDS ORDERED: NALOXONE HCL 0.4 MG/1 ML VIAL/CARP IV PRN (10:08)
[2019-02-02] MEDS: ACETAMINOPHEN 1,000 MG/100 ML VIAL IV SCH ×2 (11:47→19:49)
[2019-02-02] MEDS: cefOXitin 2,000 MG in DEXTROSE 5% 50 ML IV SCH ×2 (13:56→20:31)
--- NOTE | 2019-02-02 15:00 | Family Medicine Progress Note ---
Date of Service February 02, 2019 Assessment & Plan (1) Abdominal pain: 78 y/o F with right-sided colon mass on CT abdomen here with abdominal pain, 10 pound weight loss in the last few months and microcytic anemia. Colon mass suspicious for neoplasm -GI consulted, colonoscopy showed malignant, partially obstructing mass in colon -Surgery consulted--hemicolectomy performed today, patient recovering -Continue pain control -Continue IVF, LR 125, post op Abx -Continue NPO, advance diet per surgery recommendatiosn Microcytic anemia -MCV normal. h/h stable. follow. -takes 81mg aspirin at home. holding Hyperlipidemia - on statin at home. hold FEN/GI: NPO, IVF LR 125 cc/hr DVT ppx: Lovenox CODE STATUS: FULL as d/w pt DISPO: Med/surg (2) Colonic mass: (3) Microcytic anemia: (4) Recent unexplained weight loss: Supervising Physician Co-Signing Physician Notes I personally examined the patient and verified all lipsocmb points of history and exam, discussed case, and agree with decision making with Dr Evans. No current HPI or review of systems. Sleeping post surgery. She appears comfortable in no distress. Vitals noted, in general she is in no distress. HEENT normal cephalic atraumatic mucous membranes are moist. Breathing is unlabored no accessory muscle use. Colon massstatus post hemicolectomy. Appearing stable Otherwise as above Subjective 78 female h/o HLD found to have colon cancer s/p hemicolectomy today. Patient was in surgery during morning rounds. Attending saw the patient later in the afternoon. The patient was sleeping at that time. Vitals are stable. Review of systems unattainable Physical Exam Vital Signs (Past 24 Hours): Last Vital Signs Temp 36.9 C 02/02/19 13:45 Pulse 74 02/02/19 13:45 Resp 12 02/02/19 13:45 BP 117/67 02/02/19 13:45 Pulse Ox 95 02/02/19 13:45 Results & Data Laboratory Results Laboratory Last Values WBC 8.12 K/uL (4.8-10.8) 01/29/19 08:09 RBC 3.99 M/uL (4.2-5.4) L 01/29/19 08:09 Hgb 10.1 g/dL (12.0-16.0) L 01/29/19 08:09 Hct 33.6 % (37-47) L 01/29/19 08:09 MCV 84.2 fL (80-100) 01/29/19 08:09 MCH 25.3 pg (25-34) 01/29/19 08:09 MCHC 30.1 g/dL (32-36) L 01/29/19 08:09 RDW Std Deviation 61.6 fL (36.4-46.3) H 01/29/19 08:09 RDW Coeff of Lizzie 20.0 % (11.5-14.5) H 01/29/19 08:09 Plt Count 366 K/uL (130-400) 01/29/19 08:09 MPV 8.7 fL (7.4-10.4) 01/29/19 08:09 Immature Gran % (Auto) 0.1 % 01/29/19 08:09 Neut % (Auto) 60.7 % 01/29/19 08:09 Lymph % (Auto) 26.5 % 01/29/19 08:09 [place] % (Auto) 9.4 % 01/29/19 08:09 Eos % (Auto) 3.1 % 01/29/19 08:09 Baso % (Auto) 0.2 % 01/29/19 08:09 Immature Gran # (Auto) 0.01 K/uL (0.00-0.02) 01/29/19 08:09 Neut # (Auto) 4.93 K/uL (1.4-6.5) 01/29/19 08:09 Lymph # (Auto) 2.15 K/uL (1.2-3.4) 01/29/19 08:09 [place] # (Auto) 0.76 K/uL (0.11-0.59) H 01/29/19 08:09 Eos # (Auto) 0.25 K/uL (0-0.5) 01/29/19 08:09 Baso # (Auto) 0.02 K/uL (0-0.2) 01/29/19 08:09 Hypochromasia Present 01/28/19 21:08 Anisocytosis Present 01/29/19 08:09 PT 10.7 Seconds (9.0-12.0) 01/29/19 08:09 INR 1.0 (0.9-1.1) 01/29/19 08:09 APTT 23.4 Seconds (21.0-31.0) 01/28/19 21:08 PTT Ratio 0.9 01/28/19 21:08 Sodium 137 mmol/L (136-145) 01/31/19 07:06 Potassium 3.6 mmol/L (3.5-5.1) 01/31/19 07:06 Chloride 107 mmol/L (98-107) 01/31/19 07:06 Carbon Dioxide 28 mmol/L (21-32) 01/31/19 07:06 Anion Gap 2.0 (3-11) L 01/31/19 07:06 BUN 4 mg/dl (7-18) L 01/31/19 07:06 Creatinine 0.63 mg/dl (0.6-1.2) 01/31/19 07:06 Est Cr Clr Drug Dosing 61.4 ml/min 01/31/19 07:06 Est GFR ( Amer) 101.0 01/31/19 07:06 Est GFR (Non-Af Amer) 87.1 01/31/19 07:06 BUN/Creatinine Ratio 6.8 (10-20) L 01/31/19 07:06 Glucose 92 mg/dl (70-99) 01/31/19 07:06 Calcium 7.9 mg/dl (8.5-10.1) L 01/31/19 07:06 Total Bilirubin 0.3 mg/dl (0.2-1) 01/28/19 21:08 AST 27 U/L (15-37) 01/28/19 21:08 ALT 30 U/L (12-78) 01/28/19 21:08 Alkaline Phosphatase 195 U/L (45-117) H 01/28/19 21:08 Troponin I < 0.015 ng/ml (0-0.045) 01/28/19 21:08 Total Protein 8.3 gm/dl (6.4-8.2) H 01/28/19 21:08 Albumin 2.7 gm/dl (3.4-5.0) L 01/28/19 21:08 Globulin 5.6 gm/dl (2.5-4.0) H 01/28/19 21:08 Albumin/Globulin Ratio 0.5 (0.9-2) L 01/28/19 21:08 Lipase 99 U/L (73-393) 01/28/19 21:08 Carcinoembryonic Ag < 0.5 ng/ml (0-2.5) 01/28/19 21:08 Urine Color Yellow 01/29/19 04:37 Urine Appearance Clear (Clear) 01/29/19 04:37 Urine pH 7.5 (4.5-7.5) 01/29/19 04:37 Ur Specific [place] 1.025 (1.000-1.030) 01/29/19 04:37 Urine Protein Negative (Negative) 01/29/19 04:37 Urine Glucose (UA) Negative (Negative) 01/29/19 04:37 Urine Ketones Negative (Negative) 01/29/19 04:37 Urine Blood Negative (Negative) 01/29/19 04:37 Urine Nitrite Negative (Negative) 01/29/19 04:37 Urine Bilirubin Negative (Negative) 01/29/19 04:37 Urine Urobilinogen Negative (Negative) 01/29/19 04:37 Ur Leukocyte Esterase Negative (Negative) 01/29/19 04:37 Resident Activity Tracking Resident Involvement: Resident Care Provided Care Provided: Adult Hospital Medicine (1) Abdominal pain Abdominal location: unspecified location Qualified Code(s): R10.9 - Unspecified abdominal pain
[2019-02-03] MEDS: LACTATED RINGER'S 1,000 ML IV SCH ×3 (01:47→22:33)
[2019-02-03] MEDS: cefOXitin 2,000 MG in DEXTROSE 5% 50 ML IV SCH ×2 (01:48→10:16)
[2019-02-03] MEDS: ACETAMINOPHEN 1,000 MG/100 ML VIAL IV SCH ×3 (03:09→19:00)
[2019-02-03 06:39] LABS: Basophils # (auto) 0.01 K/uL (0-0.2); Basophils % (auto) 0.1 %; Hematocrit (blood only) 30.6 % (37-47); Hemoglobin 9.3 g/dL (12.0-16.0); Immature Granulocytes # (auto) 0.01 K/uL (0.00-0.02); Immature Granulocytes % (auto) 0.1 %; Lymphocytes # (auto) 1.39 K/uL (1.2-3.4); Lymphocytes % (auto) 14.2 %; Mean Corpuscular Hgb Conc 30.4 g/dL (32-36); Mean Corpuscular Volume 84.5 fL (80-100); Mean Platelet Volume 8.6 fL (7.4-10.4); Monocytes # (auto) 0.48 K/uL (0.11-0.59); Monocytes % (auto) 4.9 %; Neutrophils # (auto) 7.92 K/uL (1.4-6.5); Neutrophils % (auto) 80.7 %; Platelet Count 358 K/uL (130-400); RDW Coefficient of Variation 19.2 % (11.5-14.5); Red Blood Count 3.62 M/uL (4.2-5.4); White Blood Count 9.81 K/uL (4.8-10.8)
[2019-02-03 07:13] LABS: BUN Creatinine Ratio 10.6 (10-20); Calcium 8.6 mg/dl (8.5-10.1); Creatinine Clr Calc Pharmacy 48.9 ml/min; Est GFR (African American) 84.3; Est GFR (Non-African American) 72.7; Potassium 4.1 mmol/L (3.5-5.1)
--- NOTE | 2019-02-03 08:01 | Surgery Progress Note ---
Date of Service February 03, 2019 Assessment & Plan (1) Colonic mass: POD 1 right colectomy begin clears, decrease IVF change from dilaudid START UP SPECIALIST to morphine ambulate as above doing well so far ok to start clears. Subjective no nausea, pain control fair, rawls removed this AM Physical Exam Vital Signs (Past 24 Hours): Last Vital Signs Temp 36.7 C 02/03/19 07:10 Pulse 83 02/03/19 07:10 Resp 18 02/03/19 07:10 BP 157/85 H 02/03/19 07:10 Pulse Ox 95 02/03/19 07:10 Gastrointestinal (Abdomen): Inspection/Auscultation: + abdominal surgical incision (dressing dry); abdomen not distended Percussion/Palpation: abdomen soft UOP 400
[2019-02-03] MEDS: ENOXAPARIN INJ 40 MG/0.4 ML SYR SQ SCH (09:34)
[2019-02-03] MEDS ORDERED: Nursing to Pharmacy Communication ONE (09:51)
--- NOTE | 2019-02-03 11:01 | Family Medicine Progress Note ---
Date of Service February 03, 2019 Assessment & Plan (1) Abdominal pain: 78 y/o F with right-sided colon mass on CT abdomen here with abdominal pain, 10 pound weight loss in the last few months and microcytic anemia. Colon mass suspicious for neoplasm s/p right hemicolectomy -GI consulted, colonoscopy showed malignant, partially obstructing mass in colon -Surgery consulted--hemicolectomy performed 02.03.2019, patient recovering well--afebrile, no SOB, dressing is clean, adequate urine output -Continue pain control -Continue IVF, LR 80, post op Abx -Clear liquids today, Dr. Black provided OMT to help with ileus Microcytic anemia -MCV normal. h/h stable. follow. -takes 81mg aspirin at home. holding Hyperlipidemia - on statin at home. hold FEN/GI: NPO, IVF LR 80 cc/hr DVT ppx: Lovenox CODE STATUS: FULL as d/w pt DISPO: Med/surg (2) Colonic mass: (3) Microcytic anemia: (4) Recent unexplained weight loss: Supervising Physician Co-Signing Physician Notes I personally examined the patient and verified all lipscomb points of history and exam, discussed case, and agree with decision making with Dr Evans. Feeling good, tolerating clears okay. No other new complaints. Vitals noted, in general she is in no distress. HEENT normal cephalic atraumatic mucous membranes are moist. Breathing is unlabored no accessory muscle use. Osteopathic structural examright greater than left lower thoracic paraspinals high tone, decreased range of motion-direct myofascialimproved. Patient tolerated well Colon massstatus post hemicolectomy. Thoracic somatic dysfunction-OMT done as this has been shown to hasten resolution of postop ileus in some patients after abdominal surgeries. Appearing stable Otherwise as above Subjective 78 female h/o HLD found to have colon cancer s/p hemicolectomy today. Patient is up in chair enjoy clear liquid breakfast. Reports abdominal pain, diffusely. No n/v/d. No fever, no sob. Ambulating well to the bathroom. Urinating well. Review of systems reviewed and negative except for above Physical Exam Vital Signs (Past 24 Hours): Last Vital Signs Temp 36.7 C 02/03/19 07:10 Pulse 83 02/03/19 07:10 Resp 18 03/19/19 07:10 BP 157/85 H 02/03/19 07:10 Pulse Ox 95 02/03/19 07:10 Constitutional: WD/WN, vitals as above Eyes: PERRL, conjunctivae normal, anicteric sclerae ENMT: external ear and nose normal, oropharynx normal Neck: trachea midline, no thyromegaly Respiratory: normal respiratory effort, lungs clear to auscultation Cardiovascular: RRR, no murmur, no edema Gastrointestinal (Abdomen): abdominal dressing dry, clean and intact Musculoskeletal: no cyanosis or clubbing, extremities motor strength 5/5 Skin: no rashes, warm and dry Results & Data Laboratory Results Laboratory Last Values WBC 9.81 K/uL (4.8-10.8) 02/03/19 06:24 RBC 3.62 M/uL (4.2-5.4) L 02/03/19 06:24 Hgb 9.3 g/dL (12.0-16.0) L 02/03/19 06:24 Hct 30.6 % (37-47) L 02/03/19 06:24 MCV 84.5 fL (80-100) 02/03/19 06:24 MCH 25.7 pg (25-34) 02/03/19 06:24 MCHC 30.4 g/dL (32-36) L 02/03/19 06:24 RDW Std Deviation 60.0 fL (36.4-46.3) H 02/03/19 06:24 RDW Coeff of Lizzie 19.2 % (11.5-14.5) H 02/03/19 06:24 Plt Count 358 K/uL (130-400) 02/03/19 06:24 MPV 8.6 fL (7.4-10.4) 02/03/19 06:24 Immature Gran % (Auto) 0.1 % 02/03/19 06:24 Neut % (Auto) 80.7 % 02/03/19 06:24 Lymph % (Auto) 14.2 % 02/03/19 06:24 [place] % (Auto) 4.9 % 02/03/19 06:24 Eos % (Auto) 0.0 % 02/03/19 06:24 Baso % (Auto) 0.1 % 02/03/19 06:24 Immature Gran # (Auto) 0.01 K/uL (0.00-0.02) 02/03/19 06:24 Neut # (Auto) 7.92 K/uL (1.4-6.5) H 02/03/19 06:24 Lymph # (Auto) 1.39 K/uL (1.2-3.4) 02/03/19 06:24 [place] # (Auto) 0.48 K/uL (0.11-0.59) 02/03/19 06:24 Eos # (Auto) 0.00 K/uL (0-0.5) 02/03/19 06:24 Baso # (Auto) 0.01 K/uL (0-0.2) 02/03/19 06:24 Hypochromasia Present 01/28/19 21:08 Anisocytosis Present 01/29/19 08:09 PT 10.7 Seconds (9.0-12.0) 01/29/19 08:09 INR 1.0 (0.9-1.1) 01/29/19 08:09 APTT 23.4 Seconds (21.0-31.0) 01/28/19 21:08 PTT Ratio 0.9 01/28/19 21:08 Sodium 138 mmol/L (136-145) 02/03/19 06:24 Potassium 4.1 mmol/L (3.5-5.1) 02/03/19 06:24 Chloride 104 mmol/L (98-107) 02/03/19 06:24 Carbon Dioxide 30 mmol/L (21-32) 02/03/19 06:24 Anion Gap 4.0 (3-11) 02/03/19 06:24 BUN 8 mg/dl (7-18) 02/03/19 06:24 Creatinine 0.79 mg/dl (0.6-1.2) 02/03/19 06:24 Est Cr Clr Drug Dosing 48.9 ml/min 02/03/19 06:24 Est GFR ( Amer) 84.3 02/03/19 06:24 Est GFR (Non-Af Amer) 72.7 02/03/19 06:24 BUN/Creatinine Ratio 10.6 (10-20) 02/03/19 06:24 Glucose 118 mg/dl (70-99) H 02/03/19 06:24 Calcium 8.6 mg/dl (8.5-10.1) 02/03/19 06:24 Total Bilirubin 0.3 mg/dl (0.2-1) 01/28/19 21:08 AST 27 U/L (15-37) 01/28/19 21:08 ALT 30 U/L (12-78) 01/28/19 21:08 Alkaline Phosphatase 195 U/L (45-117) H 01/28/19 21:08 Troponin I < 0.015 ng/ml (0-0.045) 01/28/19 21:08 Total Protein 8.3 gm/dl (6.4-8.2) H 01/28/19 21:08 Albumin 2.7 gm/dl (3.4-5.0) L 01/28/19 21:08 Globulin 5.6 gm/dl (2.5-4.0) H 01/28/19 21:08 Albumin/Globulin Ratio 0.5 (0.9-2) L 01/28/19 21:08 Lipase 99 U/L (73-393) 01/28/19 21:08 Carcinoembryonic Ag < 0.5 ng/ml (0-2.5) 01/28/19 21:08 Urine Color Yellow 01/29/19 04:37 Urine Appearance Clear (Clear) 01/29/19 04:37 Urine pH 7.5 (4.5-7.5) 01/29/19 04:37 Ur Specific [place] 1.025 (1.000-1.030) 01/29/19 04:37 Urine Protein Negative (Negative) 01/29/19 04:37 Urine Glucose (UA) Negative (Negative) 01/29/19 04:37 Urine Ketones Negative (Negative) 01/29/19 04:37 Urine Blood Negative (Negative) 01/29/19 04:37 Urine Nitrite Negative (Negative) 01/29/19 04:37 Urine Bilirubin Negative (Negative) 01/29/19 04:37 Urine Urobilinogen Negative (Negative) 01/29/19 04:37 Ur Leukocyte Esterase Negative (Negative) 01/29/19 04:37 Resident Activity Tracking Resident Involvement: Resident Care Provided Care Provided: Adult Hospital Medicine (1) Abdominal pain Abdominal location: unspecified location Qualified Code(s): R10.9 - Unspecified abdominal pain
[2019-02-03] MEDS: MoRPHine SULFATE 4 MG/ML 1 ML CARP\\VIAL IV PRN (16:13)
[2019-02-04] MEDS: MoRPHine SULFATE 4 MG/ML 1 ML CARP\\VIAL IV PRN ×2 (00:12→19:07)
[2019-02-04] MEDS: ACETAMINOPHEN 1,000 MG/100 ML VIAL IV SCH ×3 (03:36→19:08)
[2019-02-04 06:31] LABS: Basophils # (auto) 0.01 K/uL (0-0.2); Basophils % (auto) 0.2 %; Eosinophils # (auto) 0.06 K/uL (0-0.5); Eosinophils % (auto) 1.1 %; Hematocrit (blood only) 26.6 % (37-47); Immature Granulocytes # (auto) 0.01 K/uL (0.00-0.02); Immature Granulocytes % (auto) 0.2 %; Lymphocytes # (auto) 1.69 K/uL (1.2-3.4); Lymphocytes % (auto) 31.1 %; Mean Corpuscular Hgb Conc 30.1 g/dL (32-36); Mean Platelet Volume 8.1 fL (7.4-10.4); Monocytes # (auto) 0.42 K/uL (0.11-0.59); Monocytes % (auto) 7.7 %; Neutrophils # (auto) 3.24 K/uL (1.4-6.5); Neutrophils % (auto) 59.7 %; Platelet Count 296 K/uL (130-400); RDW Coefficient of Variation 19.7 % (11.5-14.5); RDW Standard Deviation 61.1 fL (36.4-46.3); Red Blood Count 3.13 M/uL (4.2-5.4); White Blood Count 5.43 K/uL (4.8-10.8)
[2019-02-04 06:53] LABS: Anisocytosis Present
[2019-02-04 07:12] LABS: BUN Creatinine Ratio 15.2 (10-20); Creatinine Clr Calc Pharmacy 70.3 ml/min; Est GFR (African American) 105.6; Est GFR (Non-African American) 91.1; Potassium 3.4 mmol/L (3.5-5.1)
--- NOTE | 2019-02-04 08:41 | Surgery Progress Note ---
Date of Service February 04, 2019 Assessment & Plan (1) Colonic mass: pod 2 doing well increase activity awaiting return of bowel function. Subjective doing well. no new complaints. Physical Exam Vital Signs (Past 24 Hours): Last Vital Signs Temp 36.9 C 02/04/19 07:50 Pulse 70 02/04/19 07:50 Resp 12 02/04/19 07:50 BP 142/78 H 02/04/19 07:50 Pulse Ox 95 02/04/19 07:50 Physical Exam: alert. nad abd: soft. expected tenderness.
[2019-02-04] MEDS: ENOXAPARIN INJ 40 MG/0.4 ML SYR SQ SCH (08:48)
[2019-02-04] MEDS: POTASSIUM CHLORIDE PWD 20 MEQ PACK PO SCH (08:49)
[2019-02-04] MEDS: LACTATED RINGER'S 1,000 ML IV SCH (10:35)
--- NOTE | 2019-02-04 10:56 | Family Medicine Progress Note ---
Date of Service February 04, 2019 Assessment & Plan (1) Abdominal pain: 78 y/o F with right-sided colon mass on CT abdomen here with abdominal pain, 10 pound weight loss in the last few months and microcytic anemia. Colon mass suspicious for neoplasm s/p right hemicolectomy -GI consulted, colonoscopy showed malignant, partially obstructing mass in colon -Surgery consulted--hemicolectomy performed 02.03.2019, patient recovering well--afebrile, no SOB, dressing is clean, adequate urine output -Continue pain control -Continue IVF, NS plus K at 50 cc/h -Continue clear liquids Hypokalemia Secondary to a LR infusion Switched to normal saline plus K Continue to follow BMP Microcytic anemia -MCV normal. h/h stable. follow. -takes 81mg aspirin at home. holding Hyperlipidemia - on statin at home. hold FEN/GI: NPO, IVF NS+K 50 cc/hr DVT ppx: Lovenox CODE STATUS: FULL as d/w pt DISPO: Med/surg (2) Colonic mass: (3) Microcytic anemia: (4) Recent unexplained weight loss: Supervising Physician Co-Signing Physician Notes I personally examined the patient and verified all lipscomb points of history and exam, discussed case, and agree with decision making with Dr Evans. No new problems noted. Vitals noted, in general she is in no distress. HEENT normal cephalic atraumatic mucous membranes are moist. Breathing is unlabored no accessory muscle use. Colon massstatus post hemicolectomy, appears to be recovering well.. Appearing stable Otherwise as above Subjective 78 female h/o HLD found to have colon cancer s/p hemicolectomy, postop day 2. Patient is up in chair enjoy clear liquid breakfast. Reports abdominal pain, diffusely. No n/v/d. No fever, no sob. Ambulating well to the bathroom. Urinating well. Review of systems reviewed and negative except for above Physical Exam Vital Signs (Past 24 Hours): Last Vital Signs Temp 36.9 C 02/04/19 07:50 Pulse 70 02/04/19 07:50 Resp 12 02/04/19 07:50 BP 142/78 H 02/04/19 07:50 Pulse Ox 95 02/04/19 07:50 Constitutional: WD/WN, vitals as above Eyes: PERRL, conjunctivae normal, anicteric sclerae ENMT: external ear and nose normal, oropharynx normal Neck: trachea midline, no thyromegaly Respiratory: normal respiratory effort, lungs clear to auscultation Cardiovascular: RRR, no murmur, no edema Musculoskeletal: no cyanosis or clubbing, extremities motor strength 5/5 Skin: no rashes, warm and dry Results & Data Laboratory Results Laboratory Last Values WBC 5.43 K/uL (4.8-10.8) 02/04/19 06:21 RBC 3.13 M/uL (4.2-5.4) L 02/04/19 06:21 Hgb 8.0 g/dL (12.0-16.0) L 02/04/19 06:21 Hct 26.6 % (37-47) L 02/04/19 06:21 MCV 85.0 fL (80-100) 02/04/19 06:21 MCH 25.6 pg (25-34) 02/04/19 06:21 MCHC 30.1 g/dL (32-36) L 02/04/19 06:21 RDW Std Deviation 61.1 fL (36.4-46.3) H 02/04/19 06:21 RDW Coeff of Lizzie 19.7 % (11.5-14.5) H 02/04/19 06:21 Plt Count 296 K/uL (130-400) 02/04/19 06:21 MPV 8.1 fL (7.4-10.4) 02/04/19 06:21 Immature Gran % (Auto) 0.2 % 02/04/19 06:21 Neut % (Auto) 59.7 % 02/04/19 06:21 Lymph % (Auto) 31.1 % 02/04/19 06:21 [place] % (Auto) 7.7 % 02/04/19 06:21 Eos % (Auto) 1.1 % 02/04/19 06:21 Baso % (Auto) 0.2 % 02/04/19 06:21 Immature Gran # (Auto) 0.01 K/uL (0.00-0.02) 02/04/19 06:21 Neut # (Auto) 3.24 K/uL (1.4-6.5) 02/04/19 06:21 Lymph # (Auto) 1.69 K/uL (1.2-3.4) 02/04/19 06:21 [place] # (Auto) 0.42 K/uL (0.11-0.59) 02/04/19 06:21 Eos # (Auto) 0.06 K/uL (0-0.5) 02/04/19 06:21 Baso # (Auto) 0.01 K/uL (0-0.2) 02/04/19 06:21 Hypochromasia Present 01/28/19 21:08 Anisocytosis Present 02/04/19 06:21 PT 10.7 Seconds (9.0-12.0) 01/29/19 08:09 INR 1.0 (0.9-1.1) 01/29/19 08:09 APTT 23.4 Seconds (21.0-31.0) 01/28/19 21:08 PTT Ratio 0.9 01/28/19 21:08 Sodium 141 mmol/L (136-145) 02/04/19 06:21 Potassium 3.4 mmol/L (3.5-5.1) L D 02/04/19 06:21 Chloride 106 mmol/L (98-107) 02/04/19 06:21 Carbon Dioxide 34 mmol/L (21-32) H 02/04/19 06:21 Anion Gap 1.0 (3-11) L 02/04/19 06:21 BUN 8 mg/dl (7-18) 02/04/19 06:21 Creatinine 0.55 mg/dl (0.6-1.2) L 02/04/19 06:21 Est Cr Clr Drug Dosing 70.3 ml/min 02/04/19 06:21 Est GFR ( Amer) 105.6 02/04/19 06:21 Est GFR (Non-Af Amer) 91.1 02/04/19 06:21 BUN/Creatinine Ratio 15.2 (10-20) 02/04/19 06:21 Glucose 87 mg/dl (70-99) 02/04/19 06:21 Calcium 8.0 mg/dl (8.5-10.1) L 02/04/19 06:21 Total Bilirubin 0.3 mg/dl (0.2-1) 01/28/19 21:08 AST 27 U/L (15-37) 01/28/19 21:08 ALT 30 U/L (12-78) 01/28/19 21:08 Alkaline Phosphatase 195 U/L (45-117) H 01/28/19 21:08 Troponin I < 0.015 ng/ml (0-0.045) 01/28/19 21:08 Total Protein 8.3 gm/dl (6.4-8.2) H 01/28/19 21:08 Albumin 2.7 gm/dl (3.4-5.0) L 01/28/19 21:08 Globulin 5.6 gm/dl (2.5-4.0) H 01/28/19 21:08 Albumin/Globulin Ratio 0.5 (0.9-2) L 01/28/19 21:08 Lipase 99 U/L (73-393) 01/28/19 21:08 Carcinoembryonic Ag < 0.5 ng/ml (0-2.5) 01/28/19 21:08 Urine Color Yellow 01/29/19 04:37 Urine Appearance Clear (Clear) 01/29/19 04:37 Urine pH 7.5 (4.5-7.5) 01/29/19 04:37 Ur Specific [place] 1.025 (1.000-1.030) 01/29/19 04:37 Urine Protein Negative (Negative) 01/29/19 04:37 Urine Glucose (UA) Negative (Negative) 01/29/19 04:37 Urine Ketones Negative (Negative) 01/29/19 04:37 Urine Blood Negative (Negative) 01/29/19 04:37 Urine Nitrite Negative (Negative) 01/29/19 04:37 Urine Bilirubin Negative (Negative) 01/29/19 04:37 Urine Urobilinogen Negative (Negative) 01/29/19 04:37 Ur Leukocyte Esterase Negative (Negative) 01/29/19 04:37 Resident Activity Tracking Resident Involvement: Resident Care Provided Care Provided: Adult Hospital Medicine (1) Abdominal pain Abdominal location: unspecified location Qualified Code(s): R10.9 - U nspecified abdominal pain
[2019-02-04] MEDS: NSS + 20MEQ KCL 20 MEQ/1,000 ML BAG IV SCH (12:05)
[2019-02-05] MEDS: ACETAMINOPHEN 1,000 MG/100 ML VIAL IV SCH ×3 (02:36→20:11)
[2019-02-05 07:06] LABS: Basophils # (auto) 0.02 K/uL (0-0.2); Basophils % (auto) 0.4 %; Eosinophils # (auto) 0.14 K/uL (0-0.5); Eosinophils % (auto) 2.9 %; Hematocrit (blood only) 29.8 % (37-47); Hemoglobin 8.9 g/dL (12.0-16.0); Lymphocytes # (auto) 1.91 K/uL (1.2-3.4); Lymphocytes % (auto) 39.8 %; Mean Corpuscular Hgb Conc 29.9 g/dL (32-36); Mean Corpuscular Volume 85.1 fL (80-100); Mean Platelet Volume 8.4 fL (7.4-10.4); Monocytes # (auto) 0.37 K/uL (0.11-0.59); Monocytes % (auto) 7.7 %; Neutrophils # (auto) 2.36 K/uL (1.4-6.5); Neutrophils % (auto) 49.2 %; Platelet Count 339 K/uL (130-400); RDW Coefficient of Variation 19.3 % (11.5-14.5); RDW Standard Deviation 59.9 fL (36.4-46.3)
[2019-02-05] MEDS: NSS + 20MEQ KCL 20 MEQ/1,000 ML BAG IV SCH (07:27)
--- NOTE | 2019-02-05 07:39 | Surgery Progress Note ---
Date of Service February 05, 2019 Assessment & Plan (1) Colonic mass: doing well will start low fiber diet ok for d/c later today or tomorrow. instructions given f/u 1 week. Subjective +BM. craig full liquid diet. would like to go home soon Physical Exam Vital Signs (Past 24 Hours): Last Vital Signs Temp 36.7 C 02/05/19 07:11 Pulse 70 02/05/19 07:11 Resp 20 02/05/19 07:11 BP 155/88 H 02/05/19 07:11 Pulse Ox 95 02/05/19 07:11 Physical Exam: alert. oriented. nad. abd: soft. wound looks good.
[2019-02-05 07:44] LABS: BUN Creatinine Ratio 9.1 (10-20); Calcium 8.3 mg/dl (8.5-10.1); Creatinine Clr Calc Pharmacy 75.8 ml/min; Est GFR (African American) 108.3; Est GFR (Non-African American) 93.4; Potassium 3.4 mmol/L (3.5-5.1)
[2019-02-05 07:54] LABS: RBC Morphology Unremarkable
[2019-02-05] MEDS: ENOXAPARIN INJ 40 MG/0.4 ML SYR SQ SCH (08:46)
[2019-02-05] MEDS: POTASSIUM CHLORIDE PWD 20 MEQ PACK PO SCH (08:47)
--- NOTE | 2019-02-05 13:34 | Discharge Summary ---
Date of Service February 06, 2019 Admission HPI Per Admitting Provider Patient is a 78-year-old female who presents to the ER due to persistent right- sided abdominal pain. She said it began 1 week ago and has progressively gotten worse. It is constant. She initially had constipation and was put on a bowel regimen which did not change the pain. In the ED on CT scan she was found to have a right-sided mass in the ascending colon. She is being admitted for further evaluation and colonoscopy. Recent history includes iron deficiency anemia as of August 2018 treated with iron supplementation. Stool positive for blood. Seen by Dr. Sauer's office. Plan was for outpatient colonoscopy at the end of next month. She also endorses a 10 pound weight loss since a few months ago. Dr. richey is her PCP. PMH 1. History of cholecystitis, status post cholecystectomy 2. History of hypothyroidism SH: 1. Cholecystectomy 2. Endarterectomy 3. Eye surgery 4. Tubal ligation Social: Former smoker quit at age 62, [id number] history. Lives with her niece and his . Denies alcohol or drug use. Admission Exam Per Admitting Provider Vitals noted as above and within normal limits . GENERAL: Awake, alert to person, place, and time, nontoxic-appearing, in no distress. Family at bedside. HENT: Normocephalic, atraumatic. Mucus membranes appear moist. EYES: Normal conjunctiva. Sclera non-icteric. EOMI. NECK: Supple. Full range of motion. No JVD RESPIRATORY: Clear to auscultation. Normal work of breathing. CARDIAC: Regular rate, normal rhythm. Extremities warm and well perfused. ABDOMEN: Soft, non-distended. moderate tenderness to palpation RLQ. No rebound or guarding. Bowel sounds are normal. NEURO: No focal gross focal motor deficits noted. Sensation in tact. CN II-XII grossly in tact. SKIN: Rash not present. No jaundice noted. Significant lesions not present. PSYCH: Appropriate mood and affect. Cooperative. Exam as done by Jocelyne Evans MD, [facility]of[facility]. Principal Diagnosis Colonic mass, hemicolectomy Discharge Exam Constitutional WD/WN, vitals as above Eyes PERRL, conjunctivae normal, anicteric sclerae EOM intact bilaterally ENMT external ear and nose normal, oropharynx normal Mouth: + dentures; no TMJ abnormality Neck trachea midline, no thyromegaly normal visual inspection Respiratory normal respiratory effort, lungs clear to auscultation normal respiratory effort Auscultation: lungs clear to auscultation bilaterally Cardiovascular RRR, no murmur, no edema Rate/Rhythm: regular rate and regular rhythm Gastrointestinal (Abdomen) normal bowel sounds, soft, nontender, no hepatosplenomegaly Inspection/Auscultation: normal bowel sounds, + abdominal surgical incision (dressing dry) and + hyperactive bowel sounds; abdomen not distended Percussion/Palpation: abdomen soft (midline abdominal incision, no surrounding erythema, no discharge ); no guarding and abdomen not firm Musculoskeletal no cyanosis or clubbing, extremities motor strength 5/5 Skin no rashes, warm and dry Neurologic moves all extremities Psychiatric A+Ox3, euthymic affect Orientation: alert and oriented x 3 Discharge Data Allergies Allergy/AdvReac Type Severity Reaction Status Date / Time Sulfa (Sulfonamide AdvReac Drowsy Verified 02/02/19 06:18 Antibiotics) Consultations 01/28/19 22:48 ED Decision to Admit Stat 01/29/19 01:05 Consult Case Management - Discharge Planning Routine Consult Gastroenterology Routine Procedures Performed Operation Date: 01/30/19 09:00 Actual Procedures p Colonoscopy Biopsy Cytology - Jimmy Sauer, DO Operation Date: 02/02/19 07:15 Actual Procedures p Right Hemicolectomy(Right) - Festus Yo, DO /[facility] Synoptic Report Colon Cancer (Resection) Synoptic (pTNM requirements from the 8th Edition, AJCC Staging Manual) Procedure: - Right hemicolectomy Tumor Site: - Right (ascending) colon Tumor Size: 6.0 x 5.5 x 2.5 cm Macroscopic Tumor Perforation: - Not identified Histologic Type: - Adenocarcinoma Histologic Grade: - G3: Poorly differentiated Tumor Extension: - Tumor invades through the muscularis propria into pericolorectal tissue Margins: - All margins are uninvolved by tumor - Margins examined: proximal and distal + Distance of invasive carcinoma from closest margin (distal margin): 11.5 cm Treatment Effect: - No known presurgical therapy Lymphovascular Invasion: - Not identified Perineural Invasion: - Not identified + Tumor Budding: - # of buds in hotspot field: - Low score (0-4) Tumor Deposits: - Present: one tumor deposit in mesentery measuring 0.4 cm in greatest dimension. Pathologic Staging (pTNM): - pT3 pN1c pMx Lymph nodes: Lymph Nodes Examined: 33 Lymph nodes involved: 0 + Additional Pathologic Findings: - Polyps, type: hyperplastic polyp Ordered Studies 01/28/19 21:22 CT abd pelvis IV con only Stat JAM ZENG 78 F [address] [place], [place] [phone] CT Scan Report Patient: JAM ZENG FAdmit Date: 01/28/19 MR#: [id number]: [address] [facility] Acct ID:[id number]: [facility] Zip: [place] [address] Age: 78Location: ED Sex: F Room/Bed: Att Phy: Diagnosis: RIGHT SIDE PAIN BACK PAIN, SOB Debora Phy: Suze Richey, DOService Date: 01/28/19 Fam Phy: Interpreting Phy: Sam Pradhan MD Admit Phy: Ordering Phy: Edgard Miller DO cc: ~ CT abd pelvis IV con only CLINICAL HISTORY: 78 years-old Female presenting with RLQ pain. TECHNIQUE: Multidetector CT of the abdomen and pelvis was performed after the administration of intravenous contrast. IV contrast: 90 mL of Optiray 320. One or more dose lowering techniques were used consistent with the principles of ALARA (as low as reasonably achievable), including automatic exposure control, mA or kV adjustment to individual patient size, and/or use of iterative reconstruction. COMPARISON: None. CT DOSE (mGy.cm): The estimated cumulative dose is 275.00 mGy.cm. FINDINGS: Special Education Aide topogram: Cholecystectomy clips. Lung bases: Mitral annular calcification. Top normal heart size. No pericardial or pleural effusion. Minimal dependent changes likely atelectasis. Liver: Normal morphology. No liver lesion. Patent hepatic vasculature. Biliary: Mild biliary ductal prominence likely a reservoir effect in the post cholecystectomy state. Gallbladder surgically absent. Pancreas: Mild parenchymal atrophy. Spleen: Normal. Adrenal glands: Normal. Kidneys and ureters: Well-defined hypodense lesion arising from the upper pole of the left kidney likely simple cyst. Additional smaller simple cyst at the lower pole of the left kidney. No nephrolithiasis or hydronephrosis. Ureters nondistended. Bladder: The configuration of the bladder suggests pelvic ligamentous laxity. Bladder otherwise normal. Pelvic organs: Uterus and ovaries normal. Bowel: Significant circumferential wall thickening along and extended length of ascending colon with pericolonic fat infiltration. Enhancing nodular soft tissue within the mesentery (series 3 image 223). The appendix is normal. No bowel obstruction. Peritoneal cavity: No free fluid or intraperitoneal gas. Lymph nodes: Pathologically enlarged and heterogeneously enhancing lymph lymph nodes in the right mid abdominal mesentery the largest measures 10 mm in short axis. Vasculature: Atherosclerosis of the normal caliber abdominal aorta. IVC patent. Abdominal wall: Normal. Musculoskeletal: Degenerative changes of the spine. IMPRESSION: 1. An extended length of circumferential wall thickening of the ascending colon with associated nodular infiltrative soft tissue extending into the mesentery and associated lymphadenopathy in the mesentery. This represents a primary col onic neoplasm until probe and otherwise. No other sites of metastases in the abdomen or pelvis. Gastroenterology consultation for colonoscopy recommended. The report will be called/faxed according to standard departmental protocol. Electronically signed by: Sam Pradhan M.D. 01/28/2019 10:17 PM Dictated: 01/28/192207 Transcribed: 01/28/192207 [place], [place] [phone] XRay Report Patient: JAM ZENG Date: 01/28/19 MR#: [id number]: [address] [place] [address] Acct ID:[id number]: Date: [address] [place] [address] Zip: [place] [address] Age: 78Location: ED Sex: F Room/Bed: Att Phy: Diagnosis: RIGHT SIDE PAIN BACK PAIN, SOB Debora Phy: Suze Richey, DOService Date: 01/28/19 Fam Phy: Interpreting Phy: Sam Pradhan MD Admit Phy: Ordering Phy: Edgard Miller DO cc: ~ XR chest 1V portable CLINICAL HISTORY: 78 years-old Female presenting with pain. TECHNIQUE: Portable upright AP view of the chest was obtained. COMPARISON: None. FINDINGS: Atherosclerosis of the aortic arch. Cardiac silhouette enlarged. Pulmonary vasculature prominence. Bandlike opacities at the lung bases, left greater than right. No large effusion or pneumothorax. Degenerative changes of the thoracic spine. IMPRESSION: 1. Cardiomegaly with mild volume overload. 2. Extensive bibasilar scarring suspected. Electronically signed by: Sam Pradhan M.D. 01/28/2019 9:46 PM Dictated: 01/28/192144 Transcribed: 01/28/192144 Hospital Course (1) Abdominal pain: 78F presents to the ER for a history of R sided abdominal pain x 1 week. 10 pound weight loss in the last few months and microcytic anemia. CT Showed mass in colon. Colonscopy was performed on 01/30/19 with biopsy. Hemicolectomy performed on 02/03/19, suspicious for malignancy. Diet progressed and pt discharged on 02/06/19 with PCP, GI and Oncology follow up. Colon mass seen on CT s/p right hemicolectomy Pathology from colonoscopy on 02/06/19 showed: COLON, ASCENDING, "ASCENDING MASS BIOPSY" (BIOPSY): 1. INFILTRATIVE, POORLY DIFFERENTIATED, ADENOCARCINOMA IS SEEN. 2. PLEASE SEE COMMENT. Right Hemicolectomy performed 02/03/2019, pathology showed: COLON, "RIGHT COLON, PART OF TRANSVERSE COLON" (RIGHT HEMICOLECTOMY): 1. A POORLY DIFFERENTIATED INFILTRATIVE ADENOCARCINOMA IS SEEN. 2. THIS INFILTRATIVE ADENOCARCINOMA INFILTRATES THROUGH THE BOWEL WALL AND FOCALLY INTO THE PERICOLIC FAT. 3. THE PROXIMAL AND DISTAL SURGICAL MARGINS OF RESECTION ARE FREE OF LESIONAL TISSUE. 4. A HYPERPLASTIC POLYP IS NOTED 2 CM FROM THE DISTAL RESECTION MARGIN. 5. THE APPENDIX IS HISTOLOGICALLY UNREMARKABLE. 6. A 0.4 CM IN GREATEST DIMENSION TUMOR DEPOSIT WITHIN THE MESENTERY IS NOTED. 7. 33 PERICOLIC LYMPH NODES ARE IDENTIFIED AND ALL OF THESE LYMPH NODES FAIL TO REVEAL METASTATIC ADENOCARCINOMA. 8. PLEASE SEE SYNOPTIC REPORT. 9. PLEASE NOTE THAT FOUR IMMUNOHISTOCHEMICAL STAINS IN SEARCH OF MICROSATELLITE INSTABILITY WILL BE OBTAINED ON BLOCK #4 OF THIS CASE AND AN ADDENDUM WILL BE ISSUED. Tolerating regular diet at discharge Pain controlled well with PO Tylenol. Follow up with Surgery, PCP and Oncology will be arranged on discharge. Hypokalemia (3.4) Recommend recheck as outpatient. Microcytic anemia MCV normal. h/h stable. follow. Hyperlipidemia Continue statin on discharge. (2) Colonic mass: (3) Microcytic anemia: (4) Recent unexplained weight loss: Total Time Total Time Spent Total Time Spent (In Minutes): less than 30 minutes Total Time Includes: Examination of the Patient, Discharge Planning and Communication With Other Providers Discharge Plan Discharge Items Patient Disposition: Home - Self-Care Reason For Visit: ABDOMINAL PAIN, COLON MASS Discharge Diagnosis: right hemicolectomy Condition: Good Discharge Goals: Decrease discomfort Activity: Per 'Additional Instructions' section Lifting: No more than 10 pounds Bathing Comment: ok to shower Driving/Machine Use Comment: when pain free Non-emergency contact: Surgeon Call non-emergency contact if: you have any medication questions, your pain is not controlled, you have a fever, your temperature is above 101.5, your wound has increased redness and your wound has increased drainage Follow-up/Referrals: Suze Richey DO [Primary Care Provider] - 02/12/19 9:20 am (Please, follow up with Dr. Richey on February 12 at 9:20 am. *If you need to change this appointment, call the office at [phone].) Festus Yo DO [Surgeon] - 02/11/19 1:20 pm (Please, follow up at [facility] General Surgery Office with Dr. Festus Yo on SaturdayFebruary 11 at 1:20 pm. *This office is located at [address] [facility] in [place]. If you need to change this appointment, call the office at [phone].) Scooby Perez [Physician] - (Please, follow up at [facility] with either Dr. Moya or Dr. Perez. A referral with your information was sent to their office and a nurse will call you with the appointment information. *Their office is located in the rear of this hospital building. You will park behind the hospital in [address] and enter via [facility]. If you have any questions, call their office at [phone].) Diet: Low Fiber Addtl Provider Instructions: Colon cancer - Follow up with your surgeon and family medicine doctor regarding next steps of treatment, including establishing with an oncologist Post-op recovery -Follow up with your surgeon, continue pain control medication, hydrocodone- acetaminophen as directed. -Slowly increase your activity. Listen to your body, if you are feeling fatigued, be sure to get plenty of rest in between activity. It is not uncommon after surgery to experience deconditioning. -Please follow up your primary care doctor regarding excessive pain, fatigue, fevers or concerns for infection of the incision. Prescriptions: New hydrocodone-acetaminophen [[place]] 5-325 mg tablet 1 - 2 tab PO Q4H PRN (Reason: pain) Qty: 10 RF: 0 Continued aspirin 81 mg Tablet,Delayed Release (Dr/Ec) 81 mg PO DAILY RF: 0 omeprazole 20 mg capsule,delayed release(DR/EC) 20 mg PO BID RF: 0 atorvastatin 40 mg Tablet 40 mg PO DAILY RF: 0 Stand-Alone Forms: [employer], [facility]/Other Patient Handouts: Surgery Colorectal Recover Discharge Orders: Discharge Order (Routine); Ordered 02/06/19 Ordered By: Rafy Ashford Admission Data Admit Date/Time: 01/29/19 00:11 Attending Provider: Ayo Black Admit Provider: Jocelyne Evans Primary Care Provider: Suze Richey Other Providers: Liz Grossman ; Corrine Rausch ; Jimmy Sauer Service: Surgical Services Other Interventions: Discharge Summary Assessment (RN) Last Done: 02/05/19 13:32 Pending Studies at Discharge: No DC Date/Time DO NOT enter until pt leaves facility: 02/06/19 10:35 Supervising Physician Co-Signing Physician Notes I personally examined the patient and verified all lipscomb points of history and exam, discussed case, and agree with decision making with Dr Ashford. No new problems noted. Is tolerating regular diet fairly well. Family present. Updated them as well. Vitals noted, in general she is in no distress. HEENT normal cephalic atraumatic mucous membranes are moist. Breathing is unlabored no accessory muscle use. Colon massstatus post hemicolectomy, appears to be recovering well. Stable for home when she feels up to it. Extensively discussed ensuring adequate nutrition and activity. Postop follow-up with surgery next week. Hematology/oncology consult as an outpatient anticipated in the near future. Appearing stable for home - discharge held over from 02/05 to 3/22 due to diarrhea after eating 02/05. now stable for home Otherwise as above Resident Activity Tracking Resident Involvement: Resident Care Provided Care Provided: Adult [facility] Medicine
[2019-02-05 23:46] VITALS: O2SAT 96
[2019-02-06] MEDS: ACETAMINOPHEN 1,000 MG/100 ML VIAL IV SCH ×2 (03:20→07:12)
[2019-02-06] MEDS ORDERED: Nursing to Pharmacy Communication ONE (07:16)
[2019-02-06 07:52] VITALS: BP 112/72; PULSE 70; TEMP 98.6
[2019-02-06] MEDS: ENOXAPARIN INJ 40 MG/0.4 ML SYR SQ SCH (08:50)
[2019-02-06] MEDS: POTASSIUM CHLORIDE PWD 20 MEQ PACK PO SCH (08:50)
--- NOTE | 2019-02-06 09:41 | Surgery Progress Note ---
Date of Service February 06, 2019 Assessment & Plan (1) Colonic mass: POD 4 right colectomy ok for discharge , f/u next week Subjective had some abdominal cramping, loose BM yesterday but today feeling better Physical Exam Vital Signs (Past 24 Hours): Last Vital Signs Temp 37.0 C 02/06/19 07:51 Pulse 70 02/06/19 07:51 Resp 15 02/06/19 07:51 BP 112/72 02/06/19 07:51 Pulse Ox 96 02/06/19 07:51 Gastrointestinal (Abdomen): Inspection/Auscultation: abdomen not distended Percussion/Palpation: abdomen soft
--- NOTE | 2019-02-06 11:07 | Family Medicine Progress Note ---
Date of Service February 01, 2019 Assessment & Plan (1) Abnormal CT scan, colon: (2) Abdominal pain: (3) Microcytic anemia: (4) Recent unexplained weight loss: 78 y/o F with right-sided colon mass on CT abdomen here with abdominal pain, 10 pound weight loss in the last few months and microcytic anemia. Colon mass suspicious for neoplasm -s/p colonoscopy confirming the mass. surgery consulted - for surgery on saturday. -continue clear liquids. -IVF - decreased rate to 50ml/hr Microcytic anemia -MCV normal. h/h stable. -holding aspirin Hyperlipidemia - on statin at home. hold FEN/GI: Clear liquid and IVF DVT ppx: SCDs. No chemical anticoag await procedure CODE STATUS: FULL as d/w pt DISPO: Med/surg Subjective had a good night sleep. denies any concerns. tolerating clears. no blood in stool Physical Exam Vital Signs (Past 24 Hours): Last Vital Signs Temp 37.0 C 02/06/19 07:51 Pulse 70 02/06/19 07:51 Resp 15 02/06/19 07:51 BP 112/72 02/06/19 07:51 Pulse Ox 96 02/06/19 07:51 Constitutional: WD/WN, vitals as above Respiratory: normal respiratory effort, lungs clear to auscultation Cardiovascular: RRR, no murmur, no edema Gastrointestinal (Abdomen): normal bowel sounds, soft, nontender, no hepatosplenomegaly (1) Abdominal pain Abdominal location: unspecified location Qualified Code(s): R10.9 - Unspecified abdominal pain
--- NOTE | 2019-02-06 18:00 | Hospitalist Progress Note ---
Date of Service February 05, 2019 clarification - date of service 02/05/19. Assessment & Plan (1) Abdominal pain: (2) Colonic mass: (3) Microcytic anemia: (4) Recent unexplained weight loss: 78 y/o F with right-sided colon mass on CT abdomen here with abdominal pain, 10 pound weight loss in the last few months and microcytic anemia. Colon mass suspicious for neoplasm -Postop and almost stable for home, just need to ensure she is able to eat and drink okay to go home. Follow into tomorrow. Suspect the diarrhea is simply postop type changes, continue to follow. Microcytic anemia -MCV normal. h/h stable. -holding aspirin indefinitely Hyperlipidemia - on statin at home. Okay to resume at discharge Subjective Feeling okay whenever we see her in the morning. She has just eaten has a little bit of abdominal pain after eating but not much. She thinks she will hopefully be able to go home later today. Unfortunately as the day progresses she is having some postprandial diarrhea and of course with this would prefer to watch herself into tomorrow to see how she does. Review of Systems All systems reviewed & are unremarkable except as noted in HPI & below Physical Exam Vital Signs (Past 24 Hours): Last Vital Signs Temp 37.0 C 02/06/19 07:51 Pulse 70 02/06/19 07:51 Resp 15 02/06/19 07:51 BP 112/72 02/06/19 07:51 Pulse Ox 96 02/06/19 07:51 Physical Exam: In general she is awake and alert no distress. HEENT normal cephalic atraumatic mucous membranes moist. Breathing unlabored no accessory muscle use good effort. Skin shows no rashes no pallor or icterus. Abdominal incision is clean dry and intact. (1) Abdominal pain Abdominal location: unspecified location Qualified Code(s): R10.9 - Unspecified abdominal pain
--- NOTE | 2019-02-07 12:42 | Operative Report ---
Post Operative Report Pre & Post Diagnosis Operation Date: 01/30/19 09:00 Pre-Op Diagnosis: Abnormal CT Scan Anemia Post-Op Diagnosis: Ascending mass biopsy Hemorrhoids Operation Date: 02/02/19 07:15 Pre-Op Diagnosis: Colon mass Post-Op Diagnosis: same as preoperative diagnosis Procedure Operation Date: 01/30/19 09:00 Actual Procedures p Colonoscopy Biopsy Cytology - Jimmy Sauer, DO Operation Date: 02/02/19 07:15 Actual Procedures p Right Hemicolectomy(Right) - Festus Yo DO Surgeon Festus Yo DO Vice President Of Customer Service derik Adorno Estimated Blood Loss 20 I attest to the content of the Intraoperative Record and any orders documented therein. Any exceptions are noted below.
--- NOTE | 2019-02-11 16:07 | Operative Report ---
Post Operative Report Pre & Post Diagnosis Operation Date: 01/30/19 09:00 Pre-Op Diagnosis: Abnormal CT Scan Anemia Post-Op Diagnosis: Ascending mass biopsy Hemorrhoids Operation Date: 02/02/19 07:15 Pre-Op Diagnosis: Colon mass Post-Op Diagnosis: same as preoperative diagnosis Procedure Operation Date: 01/30/19 09:00 Actual Procedures p Colonoscopy Biopsy Cytology - Jimmy Sauer, DO Operation Date: 02/02/19 07:15 Actual Procedures p Right Hemicolectomy(Right) - Festus Yo DO Surgeon Festus Yo DO Custom Shoemaker derik Adorno Estimated Blood Loss 20 Findings Consistent with Post-Op Diagnosis Specimens terminal ileum, right colon, Description of Procedure After informed consent was obtained the patient was taken the operating room and placed in supine position. After successful intubation a Correa catheter was placed and the abdomen was sterilely prepped and draped in usual fashion. I began by making a midline incision from above the umbilicus down and around for several inches. This was carried down through the soft tissue using cautery. The anterior rectus fascia was opened using cautery. The peritoneum was elevated with hemostats and incised under direct vision using a Metzenbaum scissor. We extended this incision to both poles using cautery. Once in the abdomen we examined all 4 quadrants and other than the palpable mass in the right colon no other abnormalities were identified. Liver surfaces as well as peritoneal surfaces did not show any evidence of metastatic disease. We used a Bookwalter retractor throughout the procedure to help our exposure. We began by mobilizing the right colon along the white line of Toldt. The tumor itself was very large and was pushing some of the retroperitoneal structures midline including the ureter. We are able to open the white line of Toldt and identify the ureter to keep it out of harm's way. After mobilizing the right colon up to and around the hepatic flexure we then transected the terminal ileum with a SANDRINE brown cartridge stapler. We then used the LigaSure device to start coming up the right colon mesentery. We did try to stay as low as possible to incorporate as many nodes as possible. At one point we stopped and found a viable portion of transverse colon proximal to the middle colic vessels. We transected this with a SANDRINE brown cartridge stapler as well. We completed transected of the mesentery again using the LigaSure device. We passed the specimen off to the back table. We then performed a side to side small bowel to transverse colon anastomosis using a SANDRINE brown cartridge stapler. The common enterotomy was closed using a TA stapling device. 3-[address] was [address] to place a crotch stitch as well as to oversew the staple lines in Lembert fashion. We used 2-0 Vicryl to close the mesenteric defect. At the end of the procedure the anastomosis was intact and viable and patent. There was no evidence of ischemia. There was adequate hemostasis. Thorough irrigation was performed. Again no other abnormalities were identified. We closed the fascia using oh loop PDS starting either pole running them and securing them in the midline. Soft tissue was irrigated and skin was closed using skin sarah. A sterile dressing was applied. The patient was awakened extubated and transferred recovery in stable condition. My physician medical assistant cardiology was present for the entire case. He assisted in prepping the patient. He helped with exposure throughout my dissection helped with wound closure and dressing placement. I attest to the content of the Intraoperative Record and any orders documented therein. Any exceptions are noted below.
== END 2019-02-06 10:35 | disposition home or self-care (01) | DRG 331 ==
LOC: ED 20:38 → 3N 01-29 00:11 → SUATTDRO 01-29 00:11 → 3N 01-29 00:36

== ENCOUNTER 2019-04-01 19:19 | Observation (INO) ==
[2019-04-01] MEDS ORDERED: MoRPHine SULFATE 10 MG/ML CARP/VIAL IV STA (19:33)
[2019-04-01] MEDS ORDERED: ONDANSETRON INJ 2 MG/ML 2 ML VIAL IV STA (19:33)
[2019-04-01 20:11] LABS: Hematocrit (blood only) 30.4 % (37-47); Hemoglobin 9.7 g/dL (12.0-16.0); Mean Corpuscular Hgb Conc 31.9 g/dL (32-36); Mean Corpuscular Volume 91.8 fL (80-100); Nucleated RBC # (auto) 0.12 K/uL (0-0); Nucleated RBC % (auto) 2.4 %; RDW Coefficient of Variation 19.2 % (11.5-14.5); RDW Standard Deviation 63.1 fL (36.4-46.3); Red Blood Count 3.31 M/uL (4.2-5.4); White Blood Count 4.91 K/uL (4.8-10.8)
--- NOTE | 2019-04-01 20:13 | XRay Report ---
XR chest 1V portable CLINICAL HISTORY: backpain ATYPICAL CHEST PAIN. HISTORY OF COLON CARCINOMA. COMPARISON STUDY: 03/03/2019 FINDINGS: The heart is borderline enlarged. There is a left-sided A-Port catheter. There are bilatera l interstitial pulmonary opacities, similar to the preceding examination. There is no acute lobar con solidation.[ There are no pleural effusions. IMPRESSION: 1. Borderline cardiomegaly 2. Persistent bilateral chronic interstitial opacities with a basilar predominance Electronically signed by: Alban Lynch M.D. 04/01/2019 8:12 PM
[2019-04-01 20:30] LABS: Alanine Aminotransferase 25 U/L (12-78); Albumin Level 3.2 gm/dl (3.4-5.0); Aspartate Aminotransferase 20 U/L (15-37); BUN Creatinine Ratio 21.6 (10-20); Blood Urea Nitrogen 15 mg/dl (7-18); Calcium 8.7 mg/dl (8.5-10.1); Carbon Dioxide 27 mmol/L (21-32); Chloride 107 mmol/L (98-107); Creatinine Clr Calc Pharmacy 58.6 ml/min; Est GFR (African American) 98.5; Glucose 89 mg/dl (70-99); Potassium 3.5 mmol/L (3.5-5.1); Sodium 139 mmol/L (136-145)
[2019-04-01 20:34] LABS: Albumin Globulin Ratio 0.9 (0.9-2); Alkaline Phosphatase 173 U/L (45-117); Bilirubin,Total 0.6 mg/dl (0.2-1); Globulin 3.5 gm/dl (2.5-4.0); Total Protein 6.7 gm/dl (6.4-8.2); Troponin I < 0.015 ng/ml (0-0.045)
[2019-04-01 20:37] LABS: Platelet Count 64 K/uL (130-400)
[2019-04-01 20:39] LABS: ALC (manual) 1.75 K/uL (1.2-3.4); Basophils # (manual) 0.08 K/uL (0-0.2); Basophils % (manual) 1.7 %; Dohle Bodies 2+; Eosinophils # (manual) 0.21 K/uL (0-0.5); Eosinophils % (manual) 4.3 %; Lymphocytes # (manual) 1.75 K/uL (1.2-3.4); Lymphocytes % (manual) 35.7 %; Monocytes # (manual) 0.13 K/uL (0.11-0.59); Monocytes % (manual) 2.6 %; Neutrophils % (manual) 55.7 %; Platelet Estimate Decreased (Normal); Toxic Granulation 1+
[2019-04-01] MEDS ORDERED: IOVERSOL 100ml IV PRN (20:50)
[2019-04-01] MEDS ORDERED: ACETAMINOPHEN 1,000 MG/100 ML VIAL IV STA (20:54)
--- NOTE | 2019-04-01 21:04 | CT Scan Report ---
CT abd pelvis IV con only CLINICAL HISTORY: Severe lower abdominal/back pain. History of prior colonic surgery. COLON CARCINOMA COMPARISON STUDY: January 28, 2019 TECHNIQUE: The patient was scanned in a dynamic helical fashion during intravenous administration of 95 cc of Optiray 320 A dose lowering technique was utilized adhering to the principles of ALARA. CT DOSE: 282.86 mGy.cm FINDINGS: Lower chest: There are basilar atelectatic changes. There is a small hiatal hernia Liver: There is mild central intrahepatic biliary ductal dilatation, likely secondary to a reservoir effect secondary to prior cholecystectomy. This remains unchanged. No hepatic masses are visualized. The portal vein is patent. Gallbladder: Surgically absent Spleen: Normal in size and attenuation. Pancreas: Unremarkable. Adrenal glands: Unremarkable. Kidneys: There is a stable 61 mm left renal cyst. No solid renal masses are visualized. There is no h ydronephrosis. Bowel: There are no transition zones indicate bowel obstruction. There are postsurgical changes invol ving the right colon with a cold colonic anastomosis. There is no evidence of acute diverticulitis. T he appendix is not visualized with certainty. Peritoneum: There is no intraperitoneal free air or abdominal ascites. Vasculature: There are moderate atheromatous calcifications present within the aortic and iliac vesse ls. There is no evidence for abdominal aortic aneurysm. Adenopathy: None. Pelvic viscera: The bladder, and pelvic viscera are unremarkable. Skeletal structures: No destructive osseous lesions are seen. IMPRESSION: 1. No resection of the patient's right colonic mass 2. No evidence of bowel obstruction. No evidence of free air 3. No evidence of abscess 4. Surgically absent gallbladder 5. No evidence of hepatic metastasis Electronically signed by: Alban Lynch M.D. 04/01/2019 9:03 PM
--- NOTE | 2019-04-01 21:08 | CT Scan Report ---
CT lumbar spine wo con CT DOSE: CLINICAL HISTORY: lower back pain COLON CARCINOMA TECHNIQUE: Helical images were acquired in transverse plane. Reformatted sagittal and coronal images were reviewed. A dose lowering technique was utilized adhering to the principles of ALARA. CONTRAST: No contrast was administered COMPARISON STUDY: None. FINDINGS: L1-2 level: There is a broad-based central disc protrusion. There is minor spinal canal narrowing. Th ere is no significant foraminal narrowing. L2-3 level: There is a mild circumferential disc bulge. There is minimal triangular spinal canal narr owing. There is no significant foraminal narrowing L3-4 level: Is a mild circumferential disc bulge. There is minimal triangular spinal canal narrowing. There is no significant foraminal narrowing L4-5 level: There is a mild circumferential disc bulge. There is mild to moderate spinal stenosis. Th ere is no significant foraminal narrowing L5-S1 level: There is a mild circumferential disc bulge. There is minor spinal canal narrowing. There is no significant foraminal narrowing. There is facet joint arthropathy most pronounced at the L4-5 and L5-S1 levels. There is a large left renal cyst. No acute fractures or traumatic subluxations are visualized No destructive lesions are delineated. IMPRESSION: 1. No acute fractures or traumatic subluxations 2. No destructive lesions are visualized 3. Multilevel spondylitic changes 4. Smaller moderate broad-based central disc protrusion at the L1-2 level. 5. Multiple disc bulges with mild to moderate spinal stenosis at the L4-5 level.. Electronically signed by: Alban Lynch M.D. 04/01/2019 9:07 PM
--- NOTE | 2019-04-02 00:47 | Emergency Department Note ---
Entered by Ran Blake acting as a scribe for History of Present Illness General Chief complaint: Back Injury/Pain Stated complaint: SEVERE BACK PAIN Source: patient Limitations: no limitations History of Present Illness Onset (ago): hour(s) 3 Location: back (lower) Pain Consistency: + constant Maximum Pain Intensity: 10 Quality: + other (chest pressure) Exacerbated By: + other (sitting) Associated symptoms: + denies other symptoms (abdominal pain, arm pain, jaw pain, pain going through her legs); no cough and no nausea/vomiting The patient is a 78 year old female who presents to the Emergency Room with complaints of constant lower back pain starting 3 hours ago. The patient states after she went to urinate in the bathroom when her pain started. She notes she her breasts started to hurt last night. She states her chest pain feels like pressure. She states sitting makes the back pain worse. She notes nothing makes the pain better. The patient states she had colon surgery for her colon cancer 2 months ago. She denies coughing, nausea, abdominal pain, arm pain, jaw pain, pain going through her legs, and recent back surgeries. The patient states she had chest pain yesterday when helping her son with the shower. She noticed her chest pain again when coming into the ED. She notes she has a history of hyperlipidemia and is a previous smoker. She states her father had CVA. Home Medications Home Medications Medication Instructions Recorded Confirmed Type aspirin 81 mg PO QAM 01/28/19 04/01/19 History atorvastatin 40 mg PO HS 01/28/19 04/01/19 History Allergy 1 tab PO UD 04/01/19 04/01/19 History pediatric multivitamin 1 tab PO DAILY 04/01/19 04/01/19 History [Flintstones Multivitamin] Allergies Allergy/AdvReac Type Severity Reaction Status Date / Time Sulfa (Sulfonamide AdvReac Mild Drowsy Verified 04/01/19 21:31 Antibiotics) Past Med/Surg History Medical History Anemia CHRONIC; HGB IN 8-9 RANGE PER CHART REVIEW; S/P RECENT IRON INFUSIONS Cancer COLON CANCER (RECENT DX) Hyperlipidemia LBBB (left bundle branch block) DATING BACK TO AT LEAST 07/2018 Osteoarthritis Surgical History Family history of reaction to anesthesia SISTER- HALLUCINATIONS WITH TKA History of bilateral tubal ligation History of bowel resection COLON MASS RESECTION History of carotid endarterectomy LEFT CEA (08/2018) History of colonoscopy History of eye surgery B/L MUSCLE REPAIR 25 YEARS AGO History of tooth extraction Hx of cholecystectomy Hx of vascular surgery LLE VEIN "CLEANED OUT" Nausea and vomiting after administration of anesthetic agent Family History Sister Family history of diabetes mellitus Social History Preferred Language: Irish Communication Ability: Effective Beliefs That Will Affect Care: None marital status: Current Living Situation: Family Current Living Situation Comment: FAMILY LIVES WITH PATIENT Feels Safe at Home: Yes Smoking Status: Former smoker Tobacco Type: cigarettes Cigarettes Per Day: QUIT 16 YEARS AGO Second Hand Exposure: No Hx Alcohol Use: No Hx Substance Use: No Review of Systems See HPI for pertinent positives & negatives. and A total of 10 systems reviewed and were otherwise negative Physical Exam Vital Signs Vital Signs - 24 hr 04/01/19 19:22 04/01/19 20:07 04/01/19 20:29 Temperature 37.2 C Temperature Source Oral Sepsis Recent Fever Within 48 Hours No Sepsis New/Unexplained Change in Mental Status No Sepsis Action Taken by Nursing No Action Required Pulse Rate 122 H 99 H 102 H Pulse Rate [Right Finger] Pulse Rate from SpO2 Sensor Pulse Rhythm Regular Respiratory Rate 20 16 18 Respiratory Effort / Characteristics Respiratory Depth Respiratory Pattern Blood Pressure 162/96 H Blood Pressure [Right Arm] Blood Pressure Mean 118 Blood Pressure Mean [Right Arm] Blood Pressure Position [Right Arm] Pulse Oximetry 99 93 Oxygen Delivery Method Room Air 04/01/19 20:30 04/01/19 21:00 04/01/19 21:06 Temperature Temperature Source Sepsis Recent Fever Within 48 Hours Sepsis New/Unexplained Change in Mental Status Sepsis Action Taken by Nursing Pulse Rate 100 H 101 H 104 H Pulse Rate [Right Finger] Pulse Rate from SpO2 Sensor Pulse Rhythm Respiratory Rate 16 21 29 H Respiratory Effort / Characteristics Respiratory Depth Respiratory Pattern Blood Pressure 137/71 Blood Pressure [Right Arm] Blood Pressure Mean 93 Blood Pressure Mean [Right Arm] Blood Pressure Position [Right Arm] Pulse Oximetry 93 91 90 Oxygen Delivery Method 04/01/19 21:07 04/01/19 21:30 04/01/19 22:00 Temperature Temperature Source Sepsis Recent Fever Within 48 Hours Sepsis New/Unexplained Change in Mental Status Sepsis Action Taken by Nursing Pulse Rate 100 H 95 H Pulse Rate [Right Finger] 104 H Pulse Rate from SpO2 Sensor 96 H Pulse Rhythm Respiratory Rate 22 15 17 Respiratory Effort / Characteristics Non-Labored Respiratory Depth Normal Respiratory Pattern Regular Blood Pressure Blood Pressure [Right Arm] 137/71 Blood Pressure Mean Blood Pressure Mean [Right Arm] 93 Blood Pressure Position [Right Arm] Lying Pulse Oximetry 91 92 96 Oxygen Delivery Method Room Air 04/01/19 22:02 04/01/19 22:03 04/01/19 22:04 Temperature Temperature Source Sepsis Recent Fever Within 48 Hours Sepsis New/Unexplained Change in Mental Status Sepsis Action Taken by Nursing Pulse Rate 95 H 93 H Pulse Rate [Right Finger] 98 H Pulse Rate from SpO2 Sensor 97 H 93 H Pulse Rhythm Respiratory Rate 22 16 19 Respiratory Effort / Characteristics Respiratory Depth Respiratory Pattern Blood Pressure 87/51 L 90/51 L Blood Pressure [Right Arm] 90/51 L Blood Pressure Mean 63 64 Blood Pressure Mean [Right Arm] 64 Blood Pressure Position [Right Arm] Pulse Oximetry 93 93 93 Oxygen Delivery Method Room Air 04/01/19 22:30 04/01/19 22:36 04/01/19 23:11 Temperature Temperature Source Sepsis Recent Fever Within 48 Hours Sepsis New/Unexplained Change in Mental Status Sepsis Action Taken by Nursing Pulse Rate 92 H 94 H Pulse Rate [Right Finger] 96 H Pulse Rate from SpO2 Sensor 92 H Pulse Rhythm Respiratory Rate 16 18 16 Respiratory Effort / Characteristics Respiratory Depth Respiratory Pattern Blood Pressure 109/56 L 107/58 L Blood Pressure [Right Arm] 109/56 L Blood Pressure Mean 73 74 Blood Pressure Mean [Right Arm] 73 Blood Pressure Position [Right Arm] Pulse Oximetry 94 92 Oxygen Delivery Method 04/01/19 23:12 04/01/19 23:30 04/02/19 00:00 Temperature Temperature Source Sepsis Recent Fever Within 48 Hours Sepsis New/Unexplained Change in Mental Status Sepsis Action Taken by Nursing Pulse Rate 96 H 92 H 87 Pulse Rate [Right Finger] Pulse Rate from SpO2 Sensor Pulse Rhythm Respiratory Rate 22 21 19 Respiratory Effort / Characteristics Respiratory Depth Respiratory Pattern Blood Pressure 104/55 L 91/53 L Blood Pressure [Right Arm] Blood Pressure Mean 71 65 Blood Pressure Mean [Right Arm] Blood Pressure Position [Right Arm] Pulse Oximetry Oxygen Delivery Method 04/02/19 00:19 Temperature Temperature Source Sepsis Recent Fever Within 48 Hours Sepsis New/Unexplained Change in Mental Status Sepsis Action Taken by Nursing Pulse Rate Pulse Rate [Right Finger] 86 Pulse Rate from SpO2 Sensor Pulse Rhythm Respiratory Rate 18 Respiratory Effort / Characteristics Respiratory Depth Respiratory Pattern Blood Pressure Blood Pressure [Right Arm] 91/53 L Blood Pressure Mean Blood Pressure Mean [Right Arm] 65 Blood Pressure Position [Right Arm] Lying Pulse Oximetry 94 Oxygen Delivery Method GENERAL: alert, well nourished, non-toxic. Laying on left side. Moderate distress. Holding lower lumbar. EYE EXAM: normal conjunctiva, PERRL and EOM's grossly intact OROPHARYNX: no exudate, no erythema, lips, buccal mucosa, and tongue normal and mucous membranes are moist NECK: supple, no nuchal rigidity, no adenopathy, non-tender LUNGS: Clear to auscultation. Normal chest wall mechanics HEART: no murmurs, S1 normal and S2 normal ABDOMEN: abdomen soft, non-tender, normo-active bowel sounds, no masses, no rebound or guarding. BACK: Back is symmetrical on inspection and there is no deformity, no midline tenderness, no CVA tenderness. Acute reproducible tenderness in lower lumbar and midline. SKIN: no rashes and no bruising UPPER EXTREMITIES: upper extremities are grossly normal. LOWER EXTREMITIES: Flexion and extension of the hips, knees, ankles, and EHL 5/5 bilaterally. Gross sensation is intact. DPs are 2/4 bilateral. NEURO EXAM: Normal sensorium, cranial nerves II-XII grossly intact, normal speech, no gross weakness of arms. Course ED COURSE: Vital signs were reviewed and showed hypertension and tachycardia. The patients medical record was reviewed The above diagnostic studies were performed and reviewed. ED treatments and interventions as stated above. 1926: The patient was evaluated in room C1B. A complete history and physical examination was performed. 2007: I reevaluated the patient. I updated the patient on her labs. She states she was on neulasta on Saturday and states her last chemotherapy was last week. 2249: Upon reevaluation, the patient is still in pain.I discussed my findings with the patient and she understands and agrees with the treatment plan. 2299: I discussed the patient's case with Dr. Kahn, [facility]. He will evaluate the patient for further management. Based on the patients age, coexisting illnesses, exam and lab findings the decision to treat as an inpatient was made. The patient remained stable while under my care. The patient will be evaluated for further management. Administered Medications Ioversol (Optiray 320 100ml) 95 ml IV ONCE PRN PRN Reason: Interaction Checking Stop: 04/05/19 20:49 Last Admin: 04/01/19 20:50 Dose: 95 ml Documented by: [id number] Discontinued Medications Acetaminophen (Ofirmev) 1,000 mg in 100 mls @ 400 mls/hr IV NOW STA Stop: 04/01/19 21:08 Last Infusion: 04/01/19 21:22 Dose: 0 mls/hr Documented by: [id number] Admin: 04/01/19 21:06 Dose: 400 mls/hr Documented by: [id number] Morphine Sulfate (Morphine Sulfate) 6 mg IV NOW STA Stop: 04/01/19 19:34 Last Admin: 04/01/19 20:06 Dose: 6 mg Documented by: [id number] Ondansetron HCl (Zofran) 4 mg IV NOW STA Stop: 04/01/19 19:34 Last Admin: 04/01/19 20:06 Dose: 4 mg Documented by: [id number] Medical Decision Making Differential Diagnosis Differential diagnosis: Etiologies such as muscular strain, fracture, metastatic disease, disc herniat ion, sciatica, epidural abscess, vertebral osteomyelitis, discitis, spinal epidural hematoma, cord compression, cauda equina/conus medullaris syndrome, aortic disease, infection, shingles, renal colic, gastrointestinal, acute exacerbation of chronic back pain, pericarditis, myocarditis, cardiac ischemia, pericardial tamponade, pneumonia, pneumothorax, pleural effusion, hemothorax, pleurisy, aortic pathology, pulmonary embolism, intra-abdominal process, as well as others were considered. Medical Records Attestation: I reviewed the patient's medical records. Home Medications Current Medication List: was personally reviewed by me Laboratory Data Attestation: I reviewed the patient's lab results. Result diagrams: 04/01/19 20:00 04/01/19 20:00 Lab Results 04/01/19 04/01/19 Range/Units 20:00 20:00 WBC 4.91 (4.8-10.8) K/uL RBC 3.31 L (4.2-5.4) M/uL Hgb 9.7 L (12.0-16.0) g/dL Hct 30.4 L (37-47) % MCV 91.8 (80-100) fL MCH 29.3 (25-34) pg MCHC 31.9 L (32-36) g/dL RDW Std Deviation 63.1 H (36.4-46.3) fL RDW Coeff of Lizzie 19.2 H (11.5-14.5) % Plt Count 64 L (130-400) K/uL MPV 10.0 (7.4-10.4) fL Absolute Nucleated RBC 0.12 H (0-0) K/uL Nucleated RBC % (auto) 2.4 % Neutrophils % (Manual) 55.7 % Lymphocytes % (Manual) 35.7 % Monocytes % (Manual) 2.6 % Eosinophils % (Manual) 4.3 % Basophils % (Manual) 1.7 % Neutrophils # (Manual) 2.73 (1.4-6.5) K/uL Total Absolute Neuts 2.73 (1.4-6.5) K/uL Lymphocytes # (Manual) 1.75 (1.2-3.4) K/uL Total Abs Lymphocytes 1.75 (1.2-3.4) K/uL Monocytes # (Manual) 0.13 (0.11-0.59) K/uL Eosinophils # (Manual) 0.21 (0-0.5) K/uL Basophils # (Manual) 0.08 (0-0.2) K/uL Toxic Granulation 1+ Dohle Bodies 2+ Platelet Estimate Decreased L (Normal) Sodium 139 (136-145) mmol/L Potassium 3.5 (3.5-5.1) mmol/L Chloride 107 (98-107) mmol/L Carbon Dioxide 27 (21-32) mmol/L Anion Gap 5.0 (3-11) BUN 15 (7-18) mg/dl Creatinine 0.68 (0.6-1.2) mg/dl Est Cr Clr Drug Dosing 58.6 ml/min Est GFR ( Amer) 98.5 Est GFR (Non-Af Amer) 85.0 BUN/Creatinine Ratio 21.6 H (10-20) Glucose 89 (70-99) mg/dl Calcium 8.7 (8.5-10.1) mg/dl Total Bilirubin 0.6 (0.2-1) mg/dl AST 20 (15-37) U/L ALT 25 (12-78) U/L Alkaline Phosphatase 173 H (45-117) U/L Troponin I < 0.015 (0-0.045) ng/ml Total Protein 6.7 (6.4-8.2) gm/dl Albumin 3.2 L (3.4-5.0) gm/dl Globulin 3.5 (2.5-4.0) gm/dl Albumin/Globulin Ratio 0.9 (0.9-2) Lipase 178 (73-393) U/L Imaging Data Radiologist's Impression: Radiology results as stated below per my review and the radiologist's interpretation: CT abd pelvis IV con only CLINICAL HISTORY: Severe lower abdominal/back pain. History of prior colonic surgery. COLON CARCINOMA COMPARISON STUDY: January 28, 2019 TECHNIQUE: The patient was scanned in a dynamic helical fashion during intravenous administration of 95 cc of Optiray 320 A dose lowering technique was utilized adhering to the principles of ALARA. CT DOSE: 282.86 mGy.cm FINDINGS: Lower chest: There are basilar atelectatic changes. There is a small hiatal hernia Liver: There is mild central intrahepatic biliary ductal dilatation, likely secondary to a reservoir effect secondary to prior cholecystectomy. This remains unchanged. No hepatic masses are visualized. The portal vein is patent. Gallbladder: Surgically absent Spleen: Normal in size and attenuation. Pancreas: Unremarkable. Adrenal glands: Unremarkable. Kidneys: There is a stable 61 mm left renal cyst. No solid renal masses are vis ualized. There is no hydronephrosis. Bowel: There are no transition zones indicate bowel obstruction. There are postsurgical changes involving the right colon with a cold colonic anastomosis. There is no evidence of acute diverticulitis. The appendix is not visualized with certainty. Peritoneum: There is no intraperitoneal free air or abdominal ascites. Vasculature: There are moderate atheromatous calcifications present within the aortic and iliac vessels. There is no evidence for abdominal aortic aneurysm. Adenopathy: None. Pelvic viscera: The bladder, and pelvic viscera are unremarkable. Skeletal structures: No destructive osseous lesions are seen. IMPRESSION: 1. No resection of the patient's right colonic mass 2. No evidence of bowel obstruction. No evidence of free air 3. No evidence of abscess 4. Surgically absent gallbladder 5. No evidence of hepatic metastasis Electronically signed by: Alban Lynch M.D. 04/01/2019 9:[address] lumbar spine wo con CT DOSE: CLINICAL HISTORY: lower back pain COLON CARCINOMA TECHNIQUE: Helical images were acquired in transverse plane. Reformatted sagittal and coronal images were reviewed. A dose lowering technique was utilized adhering to the principles of ALARA. CONTRAST: No contrast was administered COMPARISON STUDY: None. FINDINGS: L1-2 level: There is a broad-based central disc protrusion. There is minor spinal canal narrowing. There is no significant foraminal narrowing. L2-3 level: There is a mild circumferential disc bulge. There is minimal triangular spinal canal narrowing. There is no significant foraminal narrowing L3-4 level: Is a mild circumferential disc bulge. There is minimal triangular spinal canal narrowing. There is no significant foraminal narrowing L4-5 level: There is a mild circumferential disc bulge. There is mild to moderate spinal stenosis. There is no significant foraminal narrowing L5-S1 level: There is a mild circumferential disc bulge. There is minor spinal canal narrowing. There is no significant foraminal narrowing. There is facet joint arthropathy most pronounced at the L4-5 and L5-S1 levels. There is a large left renal cyst. No acute fractures or traumatic subluxations are visualized No destructive lesions are delineated. IMPRESSION: 1. No acute fractures or traumatic subluxations 2. No destructive lesions are visualized 3. Multilevel spondylitic changes 4. Smaller moderate broad-based central disc protrusion at the L1-2 level. 5. Multiple disc bulges with mild to moderate spinal stenosis at the L4-5 level.. Electronically signed by: Alban Lynch M.D. 04/01/2019 9:07 PM XR chest 1V portable CLINICAL HISTORY: backpain ATYPICAL CHEST PAIN. HISTORY OF COLON CARCINOMA. COMPARISON STUDY: 03/03/2019 FINDINGS: The heart is borderline enlarged. There is a left-sided A-Port catheter. There are bilateral interstitial pulmonary opacities, similar to the preceding examination. There is no acute lobar consolidation.[ There are no pleural effusions. IMPRESSION: 1. Borderline cardiomegaly 2. Persistent bilateral chronic interstitial opacities with a basilar pr edominance Electronically signed by: Alban Lynch M.D. 04/01/2019 8:12 PM US VENOUS BILATERAL LOWER EXTREMITIES: No DVT demonstrated. Radiologist: Lonny Shaw M.D. Study ready at 23:05 and initial results transmitted at 23:08 ECG Data Attestation: I personally reviewed and interpreted this ECG as follows: Indication: chest pain Rate (beats per minute): 99 Findings: + other (LBBB), + T-wave inversion (in high lateral leads) and + left axis deviation Blood Pressure Blood Pressure Findings: Elevated blood pressure Blood Pressure Disposition: further management by hospitalist CHRIS Narrative Patient is a 78-year-old female who presents the ER for 2 separate complaints. She is having some intermittent chest pain since yesterday. He did start while she was helping her son with the shower. She was not doing anything significantly exertional. Describes as a pressure. Did resolve. She has a history of ex-smoker and hyperlipidemia. Patient also complained of some chest pain tonight as well when she came in. Her back pain is located in the lower lumbar region. IV was established blood work was obtained. Patient was given IV morphine along with IV Tylenol and Zofran. I did not give her aspirin as her platelets were low at 64. 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 BMP was unremarkable along with LFTs bilirubin. Lipase is normal. CT lumbar spine shows multiple disc and CT of the abdomen was unremarkable with recent surgery. Question of the back pain secondary to Neupogen versus disc at this time. Chest pain does not appear to be musculoskeletal. Duplex of lower extremity was performed to make sure no DVT to suggest PE although there is no pleuritic pain. Patient family at the bedside. Discussed with the hospitalist for observation. Impression & Plan Back pain, Precordial chest pain Discharge Plan Visit Data Chief Complaint: Back Injury/Pain Stated Complaint: SEVERE BACK PAIN ED Provider: Ayo Langley Discharge Problem: Back pain, Precordial chest pain Patient Disposition: Being Evaluated by Hospitalist Forms Stand Alone Forms: My Pulsar Prescriptions Prescriptions: No Action Allergy 1 tab PO UD RF: 0 pediatric multivitamin [Flintstones Multivitamin] Tablet,Chewable 1 tab PO DAILY RF: 0 aspirin 81 mg Tablet,Delayed Release (Dr/Ec) 81 mg PO QAM RF: 0 atorvastatin 40 mg Tablet 40 mg PO HS RF: 0 Referrals Referrals: Suze Polanco DO [Primary Care Provider] - Discharge Problem: Back pain Qualifiers: Back pain location: low back pain Chronicity: unspecified Back pain laterality: unspecified Sciatica presence: unspecified whether sciatica present Qualified Code(s): M54.5 - Low back pain The scribe's documentation has been prepared under my direction and personally reviewed by me in its entirety. I confirm that the note above accurately reflects all work, treatment, procedures, and medical decision making performed by me.
[2019-04-02 01:21] LABS: Appearance Urine Clear (Clear); Bilirubin Urine Negative (Negative); Blood Urine Negative (Negative); Color Urine Yellow; Glucose Urine UA Negative (Negative); Ketones Urine Negative (Negative); Leukocyte Esterase Urine Negative (Negative); Nitrite Urine Negative (Negative); Protein Urine Negative (Negative); Specific Gravity Urine > 1.045 (1.000-1.030); Urobilinogen Urine Negative (Negative)
[2019-04-02] MEDS ORDERED: ALUMINUM/MAGNESIUM SUSP 30 ML UDC PO PRN (02:00)
[2019-04-02] MEDS ORDERED: MAGNESIUM HYDROXIDE SUSP 30 ML UDC PO PRN (02:00)
[2019-04-02] MEDS ORDERED: OPTIRAY 320 125ml IV PRN (02:59)
--- NOTE | 2019-04-02 03:18 | History & Physical Report ---
Date of Service April 02, 2019 Assessment & Plan (1) Precordial chest pain: The patient has multiple complaints that are occurring intermittently, including pain across her sternum, back pain, and abdominal pain. She did have bilateral calf pain 5 days ago, the evening of which she had first started to take the Neupogen. Her chest pain, back pain, abdominal pain and calf pain may be secondary to Neupogen. She has enough risk factors for vascular disease, that she will be admitted and undergo cardiac work-up. Order CT I have chest PE protocol. The patient will be admitted to telemetry for serial cardiac enzymes, serial EKG's, cardiac rhythm monitoring and a 2-D echocardiogram with Dopplers. Present on Admission?: Yes (2) Back pain: Back pain comes and goes, and will treat initially with Tylenol PRN. Present on Admission?: Yes (3) Abdominal pain: Abdominal pain is more likely to occur if she has not eaten, which she sometimes does not do because of the intermittent nausea associated chemo. Placed on Zofran 4 mg IV every 6 hours as needed and famotidine 20 mg IV every 12 hours. Present on Admission?: Yes (4) Bilateral calf pain: Venous Dopplers today were negative. As stated above, symptoms may be related to bone marrow stimulation by Neupogen Present on Admission?: Yes (5) Colon cancer: We will consult her oncologist. Present on Admission?: Yes (6) Hyperlipidemia: Continue atorvastatin 40 mg at bedtime. Check a fasting lipid panel Present on Admission?: Yes History of Present Illness Chief Complaint: The patient presents to the emergency department with complaint of thoracolumbar pain, pain across her sternum, and a report of pain in her calves bilaterally last week. Primary Care Provider: Suze Polanco DO The patient is a 78-year-old female presently undergoing chemotherapy for colon cancer, who received Neupogen 5 days ago, and shortly thereafter developed the pains as noted above including calf pain, thoracolumbar pain and intermittent pain across her sternum. The symptoms occur with or without activity. She has not had any recent travels or sick exposures. She has not had these symptoms previously. She did undergo stress test in December for unrelated symptoms, which she reports was normal. Allergies Allergy/AdvReac Type Severity Reaction Status Date / Time Sulfa (Sulfonamide AdvReac Mild Drowsy Verified 05/15/19 21:31 Antibiotics) Home Medications Home Medications Medication Instructions Recorded Confirmed Type aspirin 81 mg PO QAM 01/28/19 04/01/19 History atorvastatin 40 mg PO HS 01/28/19 04/01/19 History Allergy 1 tab PO UD 04/01/19 04/01/19 History pediatric multivitamin 1 tab PO DAILY 04/01/19 04/01/19 History [Flintstones Multivitamin] Past Med/Surg History Medical History Anemia CHRONIC; HGB IN 8-9 RANGE PER CHART REVIEW; S/P RECENT IRON INFUSIONS Cancer COLON CANCER (RECENT DX) Hyperlipidemia LBBB (left bundle branch block) DATING BACK TO AT LEAST 07/2018 Osteoarthritis Surgical History Family history of reaction to anesthesia SISTER- HALLUCINATIONS WITH TKA History of bilateral tubal ligation History of bowel resection COLON MASS RESECTION History of carotid endarterectomy LEFT CEA (08/2018) History of colonoscopy History of eye surgery B/L MUSCLE REPAIR 25 YEARS AGO History of tooth extraction Hx of cholecystectomy Hx of vascular surgery LLE VEIN "CLEANED OUT" Nausea and vomiting after administration of anesthetic agent Family History Sister Family history of diabetes mellitus Social History Preferred Language: Romansh Communication Ability: Effective Clinical Transplant Coordinator Required: No Beliefs That Will Affect Care: None marital status: Current Living Situation: Alone Current Living Situation Comment: FAMILY LIVES WITH PATIENT Other Information That Helps Us Care for You: No Feels Safe at Home: Yes Safety Concerns: Feels Safe At This Time Smoking Status: Former smoker Tobacco Type: cigarettes Cigarettes Per Day: QUIT 16 YEARS AGO Second Hand Exposure: No Tobacco Cessation Education Requested by Patient: No Hx Alcohol Use: No Hx Substance Use: No Review of Systems Review of Systems: The patient denies palpitations, shortness of breath, dyspnea on exertion, cough, lower extremity swelling, sore throat, fevers, chills, sweats, weight change, nausea, vomiting, diarrhea , constipation, abdominal pain, pelvic pain, blood in urine or stool, dysuria, urinary frequency or urgency, lightheadedness, dizziness, headache, memory loss, loss of consciousness, rash, abnormal bruising or bleeding, imbalance, focal or generalized weakness, numbness or tingling in arms, generalized arthralgias or myalgias, neck pain, or night sweats. The review of systems is otherwise negative other than for that already noted above, and at least 10 systems have been reviewed. Physical Exam Physical Exam: The patient is awake, alert and oriented 3, well developed and well nourished, normocephalic and atraumatic, lying in bed and in no acute distress. HEENT--PERRL, EOMI, mucous membranes and oropharynx dry. Neck--supple. No JVD. No bruits. Thyroid normal, trachea midline, no adenopathy. Heart--normal S1 and S2. No murmurs, rubs or gallops. Lungs--clear bilaterally, no respiratory distress, no accessory muscle use. Abdomen--normal bowel sounds and soft. Nontender. Nondistended, no hernias or masses, no organomegaly. Extremities--no cyanosis or clubbing. No edema. There are good distal pulses b/l. Dermatologic--normal skin turgor, normal color, no abnormal lymph nodes, no rash. Neurologic--cranial nerves II through XII grossly intact. Rheumatologic--normal range of motion. Psychiatric--normal affect. Results & Data Vital Signs (Past 12 Hours) Vital Signs Temp Pulse Pulse Resp BP BP Pulse Ox 04/02/19 01:41 98.1 F 82 18 118/66 95 04/02/19 01:30 80 18 103/57 L 94 04/02/19 01:00 85 17 103/57 L 04/02/19 00:30 87 24 106/49 L 04/02/19 00:19 86 18 91/53 L 94 04/02/19 00:00 87 19 91/53 L 04/01/19 23:30 92 H 21 104/55 L 04/01/19 23:12 96 H 22 04/01/19 23:11 94 H 16 107/58 L 04/01/19 22:36 96 H 18 109/56 L 92 04/01/19 22:30 92 H 16 109/56 L 94 04/01/19 22:04 93 H 19 90/51 L 93 04/01/19 22:03 95 H 16 87/51 L 93 04/01/19 22:02 98 H 22 90/51 L 93 04/01/19 22:00 95 H 17 96 04/01/19 21:30 100 H 15 92 04/01/19 21:07 104 H 22 137/71 91 04/01/19 21:06 104 H 29 H 137/71 90 04/01/19 21:00 101 H 21 91 04/01/19 20:30 100 H 16 93 04/01/19 20:29 102 H 18 93 04/01/19 20:07 99 H 16 04/01/19 19:22 99.0 F 122 H 20 162/96 H 99 Laboratory Results Laboratory Results WBC 4.91 K/uL (4.8-10.8) 04/01/19 20:00 RBC 3.31 M/uL (4.2-5.4) L 04/01/19 20:00 Hgb 9.7 g/dL (12.0-16.0) L 04/01/19 20:00 Hct 30.4 % (37-47) L 04/01/19 20:00 MCV 91.8 fL (80-100) 04/01/19 20:00 MCH 29.3 pg (25-34) 04/01/19 20:00 MCHC 31.9 g/dL (32-36) L 04/01/19 20:00 RDW Std Deviation 63.1 fL (36.4-46.3) H 04/01/19 20:00 RDW Coeff of Lizzie 19.2 % (11.5-14.5) H 04/01/19 20:00 Plt Count 64 K/uL (130-400) L 04/01/19 20:00 MPV 10.0 fL (7.4-10.4) 04/01/19 20:00 Absolute Nucleated RBC 0.12 K/uL (0-0) H 04/01/19 20:00 Nucleated RBC % (auto) 2.4 % 04/01/19 20:00 55.7 % 04/01/19 20:00 35.7 % 04/01/19 20:00 2.6 % 04/01/19 20:00 4.3 % 04/01/19 20:00 1.7 % 04/01/19 20:00 2.73 K/uL (1.4-6.5) 04/01/19 20:00 Total Absolute Neuts 2.73 K/uL (1.4-6.5) 04/01/19 20:00 1.75 K/uL (1.2-3.4) 04/01/19 20:00 Total Abs Lymphocytes 1.75 K/uL (1.2-3.4) 04/01/19 20:00 0.13 K/uL (0.11-0.59) 04/01/19 20:00 0.21 K/uL (0-0.5) 04/01/19 20:00 0.08 K/uL (0-0.2) 04/01/19 20:00 1+ 04/01/19 20:00 2+ 04/01/19 20:00 Decreased (Normal) L 04/01/19 20:00 Sodium 139 mmol/L (136-145) 04/01/19 20:00 Potassium 3.5 mmol/L (3.5-5.1) 04/01/19 20:00 Chloride 107 mmol/L (98-107) 04/01/19 20:00 Carbon Dioxide 27 mmol/L (21-32) 04/01/19 20:00 5.0 (3-11) 04/01/19 20:00 BUN 15 mg/dl (7-18) 04/01/19 20:00 0.68 mg/dl (0.6-1.2) 04/01/19 20:00 Est Cr Clr Drug Dosing 58.6 ml/min 04/01/19 20:00 Est GFR ( Amer) 98.5 04/01/19 20:00 Est GFR (Non-Af Amer) 85.0 04/01/19 20:00 21.6 (10-20) H 04/01/19 20:00 Glucose 89 mg/dl (70-99) 04/01/19 20:00 Calcium 8.7 mg/dl (8.5-10.1) 04/01/19 20:00 0.6 mg/dl (0.2-1) 04/01/19 20:00 AST 20 U/L (15-37) 04/01/19 20:00 ALT 25 U/L (12-78) 04/01/19 20:00 173 U/L (45-117) H 04/01/19 20:00 < 0.015 ng/ml (0-0.045) 04/01/19 20:00 6.7 gm/dl (6.4-8.2) 04/01/19 20:00 3.2 gm/dl (3.4-5.0) L 04/01/19 20:00 3.5 gm/dl (2.5-4.0) 04/01/19 20:00 0.9 (0.9-2) 04/01/19 20:00 178 U/L (73-393) 04/01/19 20:00 Yellow 04/02/19 01:01 Clear (Clear) 04/02/19 01:01 5.0 (4.5-7.5) 04/02/19 01:01 Ur Specific Cameron > 1.045 (1.000-1.030) H 04/02/19 01:01 Negative (Negative) 04/02/19 01:01 Negative (Negative) 04/02/19 01:01 Negative (Negative) 04/02/19 01:01 Negative (Negative) 04/02/19 01:01 Negative (Negative) 04/02/19 01:01 Negative (Negative) 04/02/19 01:01 Negative (Negative) 04/02/19 01:01 Ur Leukocyte Esterase Negative (Negative) 04/02/19 01:01 Diagnostic Findings [place], [place] [phone] CT Scan Report Patient: JAM ZENG Date: 04/01/19 MR#: [id number]: [address] [place] [address] Acct ID:[id number]: Date: [address] [place] [address] Zip: [place] [address] Age: 78Location: ED Sex: F Room/Bed: Att Phy: Diagnosis: SEVERE BACK PAIN Debora Phy: Suze Polanco, DOService Date: 04/01/19 Fam Phy: Interpreting Phy: Alban Lynch MD Admit Phy: Ordering Phy: Ayo Langley, cc: ~ CT abd pelvis IV con only CLINICAL HISTORY: Severe lower abdominal/back pain. History of prior colonic surgery. COLON CARCINOMA COMPARISON STUDY: January 28, 2019 TECHNIQUE: The patient was scanned in a dynamic helical fashion during intravenous administration of 95 cc of Optiray 320 A dose lowering technique was utilized adhering to the principles of ALARA. CT DOSE: 282.86 mGy.cm FINDINGS: Lower chest: There are basilar atelectatic changes. There is a small hiatal hernia Liver: There is mild central intrahepatic biliary ductal dilatation, likely secondary to a reservoir effect secondary to prior cholecystectomy. This remains unchanged. No hepatic masses are visualized. The portal vein is patent. Gallbladder: Surgically absent Spleen: Normal in size and attenuation. Pancreas: Unremarkable. Adrenal glands: Unremarkable. Kidneys: There is a stable 61 mm left renal cyst. No solid renal masses are visualized. There is no hydronephrosis. Bowel: There are no transition zones indicate bowel obstruction. There are postsurgical changes involving the right colon with a cold colonic anastomosis. There is no evidence of acute diverticulitis. The appendix is not visualized with certainty. Peritoneum: There is no intraperitoneal free air or abdominal ascites. Vasculature: There are moderate atheromatous calcifications present within the aortic and iliac vessels. There is no evidence for abdominal aortic aneurysm. Adenopathy: None. Pelvic viscera: The bladder, and pelvic viscera are unremarkable. Skeletal structures: No destructive osseous lesions are seen. IMPRESSION: 1. No resection of the patient's right colonic mass 2. No evidence of bowel obstruction. No evidence of free air 3. No evidence of abscess 4. Surgically absent gallbladder 5. No evidence of hepatic metastasis Electronically signed by: Alban Lynch M.D. 04/01/2019 9:03 PM Dictated: 04/01/192057 Transcribed: 04/01/192057 [place], [place] [phone] CT Scan Report Patient: JAM ZENG Date: 04/01/19 MR#: [id number]: [address] [facility] Acct ID:[id number]: Date: [address] [place] [address] Zip: [place] [address] Age: 78Location: ED Sex: F Room/Bed: Att Phy: Diagnosis: SEVERE BACK PAIN Debora Phy: Suze Polanco, DOService Date: 04/01/19 Fam Phy: Interpreting Phy: Alban Lynch MD Admit Phy: Ordering Phy: Ayo Langley, DO cc: ~ CT lumbar spine wo con CT DOSE: CLINICAL HISTORY: lower back pain COLON CARCINOMA TECHNIQUE: Helical images were acquired in transverse plane. Reformatted sagittal and coronal images were reviewed. A dose lowering technique was utilized adhering to the principles of ALARA. CONTRAST: No contrast was administered COMPARISON STUDY: None. FINDINGS: L1-2 level: There is a broad-based central disc protrusion. There is minor spinal canal narrowing. There is no significant foraminal narrowing. L2-3 level: There is a mild circumferential disc bulge. There is minimal trian gular spinal canal narrowing. There is no significant foraminal narrowing L3-4 level: Is a mild circumferential disc bulge. There is minimal triangular spinal canal narrowing. There is no significant foraminal narrowing L4-5 level: There is a mild circumferential disc bulge. There is mild to moderate spinal stenosis. There is no significant foraminal narrowing L5-S1 level: There is a mild circumferential disc bulge. There is minor spinal canal narrowing. There is no significant foraminal narrowing. There is facet joint arthropathy most pronounced at the L4-5 and L5-S1 levels. There is a large left renal cyst. No acute fractures or traumatic subluxations are visualized No destructive lesions are delineated. IMPRESSION: 1. No acute fractures or traumatic subluxations 2. No destructive lesions are visualized 3. Multilevel spondylitic changes 4. Smaller moderate broad-based central disc protrusion at the L1-2 level. 5. Multiple disc bulges with mild to moderate spinal stenosis at the L4-5 level.. Electronically signed by: Alban Lynch M.D. 04/01/2019 9:07 PM Dictated: 04/01/192102 Transcribed: 04/01/192102 [place], [place] [phone] XRay Report Patient: JAM ZENG Date: 04/01/19 MR#: [id number]: [address] [facility] Acct ID:[id number]: Date: [address] [place] [address] Zip: [place] [address] Age: 78Location: ED Sex: F Room/Bed: Att Phy: Diagnosis: SEVERE BACK PAIN Debora Phy: Suze Polanco, DOService Date: 04/01/19 Fam Phy: Interpreting Phy: Alban Lynch MD Admit Phy: Ordering Phy: Ayo Langley, cc: ~ XR chest 1V portable CLINICAL HISTORY: backpain ATYPICAL CHEST PAIN. HISTORY OF COLON CARCINOMA. COMPARISON STUDY: 03/03/2019 FINDINGS: The heart is borderline enlarged. There is a left-sided A-Port catheter. There are bilateral interstitial pulmonary opacities, similar to the preceding examination. There is no acute lobar consolidation.[ There are no pleural effusions. IMPRESSION: 1. Borderline cardiomegaly 2. Persistent bilateral chronic interstitial opacities with a basilar predominance Electronically signed by: Alban Lynch M.D. 04/01/2019 8:12 PM Dictated: 04/01/192009 Transcribed: 04/01/192009 Code Status & VTE Plan Code Status Full code VTE Prophylaxis Plan VTE Prophylaxis will be ordered: Yes (1) Back pain Back pain laterality: unspecified Back pain location: low back pain Chronicity: unspecified Sciatica presence: unspecified whether sciatica present Qualified Code(s): M54.5 - Low back pain (2) Abdominal pain Abdominal location: unspecified location Qualified Code(s): R10.9 - Unspecified abdominal pain
[2019-04-02] MEDS: ACETAMINOPHEN 325 MG TAB PO PRN ×3 (03:22→16:49)
--- NOTE | 2019-04-02 06:04 | Ultrasound Report ---
US venous doppler LE BI HISTORY: Pain. Edema. r/o dvt COMPARISON STUDY: None. FINDINGS: There is normal compressibility, flow, and augmentation within the bilateral lower extremit y deep venous systems. IMPRESSION: No DVT within the right or left lower extremity. The above report was generated using voice recognition software. It may contain grammatical, syntax or spelling errors. Electronically signed by: Rafy Agosto M.D. 04/02/2019 6:02 AM
[2019-04-02 06:22] LABS: INR 1.1 (0.9-1.1); Prothrombin Time 11.2 Seconds (9.0-12.0)
--- NOTE | 2019-04-02 07:34 | CT Scan Report ---
CT angio chest PE protocol CLINICAL HISTORY: 78 years-old Female presenting with atypical chest pain, shortness of breath, clini katelyn concern for pulmonary embolus. TECHNIQUE: Multidetector CT angiography of the chest was performed after administration of intravenou s contrast. 3-D volumetric and/or maximum intensity projection (MIP) images were subsequently reconst ructed for review. IV contrast: 66 mL of Optiray 320. One or more dose lowering techniques were used consistent with the principles of ALARA (as low as reasonably achievable), including automatic exposu re control, mA or kV adjustment to individual patient size, and/or use of iterative reconstruction. COMPARISON: Chest x-ray from the previous day. CT DOSE (mGy.cm): The estimated cumulative dose is 237.77 mGy.cm. 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 Pulmonary vasculature: The study is adequate for assessment of the pulmonary vascular tree. No filling defect within the pul monary arteries to suggest embolus. Main pulmonary artery is not enlarged. No flattening of the inter ventricular septum. No intracardiac filling defect. No reflux of contrast into the hepatic veins. Remaining chest: Soft tissues: Normal thyroid. Left subclavian Mediport terminates in the SVC. Multiple enlarged media stinal and bilateral hilar lymph nodes. An index node in the precarinal region measures 10 mm in shor t axis (series 4 image 161). Additional index node in the aortopulmonary window measures 11 mm in lashon rt axis (series 4 image 170). Atherosclerosis of the aorta. Normal heart size. Coronary artery calcif ication. No pericardial or pleural effusion. Partially visualized left renal cyst. Trace hiatal herni a may be present. Lungs and airways: No pneumothorax. Minimal adherent debris in the upper trachea versus a diminutive nodule. Remainder of the airways patent. Pulmonary arteries are not significantly enlarged relative t o adjacent bronchi. Interlobular septal thickening and mosaic attenuation at the lung bases. Minimal dependent changes likely atelectasis. Mild upper lobe predominant centrilobular emphysema. Musculoskeletal: Degenerative changes of the spine. IMPRESSION: 1. No evidence of pulmonary embolus. 2. Mediastinal and bilateral hilar lymphadenopathy. While this may have a reactive etiology, such as from recent infection, inflammation, or sarcoidosis, underlying metastatic disease or lymphoprolifer ative disease not excluded. Presumably the patient has a history of malignancy as evidenced by the Me diport in place. Follow-up with contrast-enhanced chest CT in 3-6 months to ensure resolution of this lymphadenopathy is recommended. 3. 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 4. No focal infiltrate to suggest pneumonia. The report will be called/faxed according to standard departmental protocol. Electronically signed by: Sam Pradhan M.D. 04/02/2019 7:33 AM
[2019-04-02] MEDS ORDERED: FLINTSTONES COMPLETE CHEWABLE TAB PO SCH (09:00)
[2019-04-02] MEDS ORDERED: ASPIRIN 81 MG ECTAB PO SCH (09:00)
[2019-04-02] MEDS ORDERED: HEPARIN SOD 5,000 UNIT/0.5 ML VIAL SQ SCH (09:00)
--- NOTE | 2019-04-02 18:44 | Discharge Summary ---
Date of Service April 02, 2019 Admission HPI Per Admitting Provider The patient is a 78-year-old female presently undergoing chemotherapy for colon cancer, who received Neupogen 5 days ago, and shortly thereafter developed the pains as noted above including calf pain, thoracolumbar pain and intermittent pain across her sternum. The symptoms occur with or without activity. She has not had any recent travels or sick exposures. She has not had these symptoms previously. She did undergo stress test in December for unrelated symptoms, which she reports was normal. Principal Diagnosis Bone pain from Neulasta Discharge Exam Constitutional WD/WN, vitals as above Eyes EOM intact bilaterally; no conjunctival abnormality ENMT external ear and nose normal, oropharynx normal Neck trachea midline, no thyromegaly normal visual inspection Respiratory normal respiratory effort, lungs clear to auscultation no respiratory distress Cardiovascular RRR, no murmur, no edema Gastrointestinal (Abdomen) Inspection/Auscultation: abdomen normal to inspection; abdomen not distended Musculoskeletal no cyanosis or clubbing, extremities motor strength 5/5 Skin no rashes, warm and dry Neurologic moves all extremities and awake Psychiatric Orientation: alert, oriented to person and cooperative Discharge Data Allergies Allergy/AdvReac Type Severity Reaction Status Date / Time Sulfa (Sulfonamide AdvReac Mild Drowsy Verified 04/01/19 21:31 Antibiotics) Consultations 04/01/19 22:29 ED Decision to Admit Stat 04/02/19 02:00 Consult Case Management - Discharge Planning Routine Ordered Studies 04/01/19 19:33 CT abd pelvis IV con only Stat CT lumbar spine wo con Stat 04/01/19 22:29 US venous doppler LE BI Urgent 04/02/19 02:00 CT angio chest PE protocol Urgent Hospital Course (1) Precordial chest pain: The patient had multiple complaints that occurred intermittently, including pain across her sternum, back pain, and abdominal pain. She did have bilateral calf pain 5 days ago, the evening of which she had first started to take the Neupogen. - She received CTA chest which did not show PE - LE Dopplers without any - CT lumbar spine that showed mild disc bulging and no spinal stenosis - Negative troponin and EKG In the end, this was felt to be due to Neupogen. She had significant relief with simple Tylenol. By the time of discharge, her back pain was a 2-3/10 and managab le at home. We discussed treating the pain over the weekend and red-flag symptoms such as saddle anesthesia, focal neurologic deficits of the LEs, or bowel or bladder incontinence. (2) Back pain: Back pain comes and goes, and will treat initially with Tylenol PRN. (3) Abdominal pain: Abdominal pain is more likely to occur if she has not eaten, which she sometimes does not do because of the intermittent nausea associated chemo. Placed on Zofran 4 mg IV every 6 hours as needed and famotidine 20 mg IV every 12 hours. - Resolved by discharge (4) Bilateral calf pain: Venous Dopplers today were negative. As stated above, symptoms may be related to bone marrow stimulation by Neupogen (5) Colon cancer: Discussed the case with Dr. Perez. - Will follow up outpatient. Total Time Total Time Spent Total Time Spent (In Minutes): 35 Total Time Includes: Examination of the Patient, Discharge Planning, Medication Reconciliation and Communication With Other Providers Discharge Plan Discharge Items Patient Disposition: Home - Self-Care Reason For Visit: CHEST TIGHTNESS Discharge Diagnosis: Chest pain, back pain, leg pain Discharge Goals: Decrease discomfort and Diagnostic testing Activity: Resume your previous activity Non-emergency contact: Primary Care Provider and Oncologist Call non-emergency contact if: your symptoms worsen, your pain is not controlled and your temperature is above 100.5 Follow-up/Referrals: Suze Polanco DO [Primary Care Provider] - Robby Moya DO [Physician] - Diet: Regular Addtl Provider Instructions: Ms. Cortez, Jose Ramon were admitted to the hospital for chest, back, and leg pain. We did a CT scan of your chest to be sure there was no blood clot in the lungs. We did a CT scan of your back to be sure there was no cancer in the back or broken vertebrae. We also did an ultrasound of the legs to ensure there were no blood clots in the legs. These tests all came back normal. We believe your pain was a side effect of the Neupogen that you took on Saturday that is meant to help boost your white blood cell count (your immune system). Keep taking the anti-histamine (Claritin, loratadine, Sandy, or any similar one). Also take Tylenol up to 650mg every 4 hours for pain. Hot or cold packs can also help in the lower back area. If you are still having pain on Saturday, please call your PCP or Dr. Moya's office ([phone]). Please stop your aspirin until you see your PCP or Dr. Moya. Your platelets are low and taking the aspirin could result in bleeding. Please come back to the Emergency Department if you have any loss of strength or sensation in the legs, any changes in your bladder or bowel habits (like losing control of urine or stool), or any numbness in the groin or buttocks. These are all signs of nerve damage and require immediate medical assistance. Prescriptions: New acetaminophen [Tylenol] 325 mg capsule 650 mg PO Q6H PRN (Reason: pain) Qty: 120 RF: 0 Continued Allergy 1 tab PO UD RF: 0 pediatric multivitamin [Flintstones Multivitamin] Tablet,Chewable 1 tab PO DAILY RF: 0 atorvastatin 40 mg Tablet 40 mg PO HS RF: 0 Discontinued aspirin 81 mg Tablet,Delayed Release (Dr/Ec) 81 mg PO QAM RF: 0 Stand-Alone Forms: [facility] Discharge Orders: Discharge Order (Routine); Ordered 04/02/19 Ordered By: Koby Barahona Admission Data Admit Date/Time: 04/02/19 01:08 Attending Provider: Koby Barahona Admit Provider: Hao Kahn Primary Care Provider: Suze Polanco Other Providers: Koby Barahona Service: Telemetry Other Interventions: Discharge Summary Assessment (RN) Last Done: 04/02/19 17:10 DC Date/Time DO NOT enter until pt leaves facility: 04/02/19 18:41
[2019-04-02] MEDS ORDERED: ATORVASTATIN 40 MG TAB PO SCH (21:00)
== END 2019-04-02 18:41 | disposition home or self-care (01) ==
LOC: ED 19:19 → 2S 19:19 → SUATTDRO 04-02 01:08 → 2S 04-02 01:30

== ENCOUNTER 2024-12-18 22:35 | Inpatient (IN) ==
--- NOTE | 2024-12-18 23:03 | Emergency Department Note ---
ED Visit Note The patient was seen and examined with shelby. I performed a substantive portion of all aspects of the medical decision making and agree with the h istory, physical and findings. Please see the note for disposition and details. .
--- NOTE | 2024-12-18 23:46 | Emergency Department Note ---
History of Present Illness General Chief complaint: Hip Pain Stated complaint: R Hip Pain, Unable to Ambulate Time Seen by Provider: 12/18/24 22:41 History of Present Illness Maximum Pain Intensity: 7 This 84-year-old female with a past medical history of PMH Iron def anemia, adenocarcinoma colon s/p R hemicolectomy in January 2019, L ICA stenosis s/p L CEA in Aug 2018 presents from home via EMS complaining of right lower back hip pain that radiates down to her knee tonight. EMS gave fentanyl. Patient denies fall, chest pain, dyspnea, abdominal pain, loss of bowel bladder control, saddle anesthesia, trauma to the area. No hip replacement. Home Medications Medication Instructions Recorded Confirmed Type aspirin 81 mg tablet,delayed 81 mg PO PM 09/28/19 07/06/24 History release (Adult Low Dose Aspirin) vit C 250 mg-vit E 90 mg-zinc 40 1 tab PO BID 02/09/21 07/06/24 History mg-copper 1 [id number] capsule (PreserVision AREDS-2) calcium carbonate-vitamin D3 1 dose PO BID 06/16/21 07/06/24 History [Calcium 600 with Vitamin D3] [id number]-[id number] acid 0.4 1 tab PO DAILY 07/03/23 07/06/24 History mg-lycopene 300 mcg-lutein 250 mcg tablet (Complete Multivitamin Adult 50 Plus) bimatoprost 0.01 % eye drops drp ophthalmic (eye) 07/06/24 07/06/24 History (Lumigan) latanoprost 0.005 % eye drops drp ophthalmic (eye) 07/06/24 07/06/24 History atorvastatin 40 mg tablet 40 mg PO PM #90 tabs 10/23/24 Rx Allergies Allergy/AdvReac Type Severity Reaction Status Date / Time Sulfa (Sulfonamide AdvReac Mild Drowsy Verified 07/06/24 09:58 Antibiotics) Past Med/Surg History Problem List (Updated 12/19/24 @ 03:07 by Aline Finn PA-C) Intractable low back pain (Acute) Acute lumbar radiculopathy (Acute) Adenocarcinoma of colon chemo was for this Mild tricuspid regurgitation by prior echocardiogram Grade I diastolic dysfunction History of colon cancer Vitamin D deficiency Osteopenia Microcytic hypochromic anemia Carotid artery narrowing s/p left CEA; assessed every 2 years GHS Osteoarthritis LBBB (left bundle branch block) dating back to at least 07/2018 per records Hyperlipidemia Medical History Adenocarcinoma of colon Vitamin D deficiency Peripheral neuropathy Port-A-Cath in place Carotid artery narrowing Microcytic hypochromic anemia Osteopenia Hyperlipidemia LBBB (left bundle branch block) Osteoarthritis Surgical History History of cataract surgery S/P wrist surgery S/P vascular surgery H/O right hemicolectomy (02/02/19) History of carotid endarterectomy (08/2018) Family history of reaction to anesthesia Nausea and vomiting after administration of anesthetic agent History of colonoscopy History of tooth extraction History of eye surgery History of bilateral tubal ligation Hx of cholecystectomy Family History Sister Family history of diabetes mellitus Mother Coronary heart disease Hypertension Pacemaker Father Stroke, Onset Age: 52 Hypertension Brother Lung cancer Denies family history of Ovarian cancer Prostate cancer Myocardial infarction Breast cancer Colorectal cancer Social History Smoking Status: Former smoker Tobacco Type: Cigarettes Age Quit Using Tobacco: 62; packs per day: 0.5; Second Hand Exposure: No; Do You Dip or Chew Tobacco: No; Hx Alcohol Use: No Hx Substance Use: No Preferred Language: Indonesian Communication Ability: Effective Visual Impairment: Limited Hearing Ability: Normal Bander And Cellophaner Machine Required: No Beliefs That Will Affect Care: None marital status: / Current Living Situation: Alone current occupational status: retired Feels Safe at Home: Yes Childhood Exposure to Second-Hand Smoke: No caffeine: Yes (Tea x 1 cup per day. ) during the past year weight has: remained stable Dental Care, Regularly: No Physical Activity Frequency: Daily Seatbelt Use: always Sunscreen Use: Yes Assistive Devices: Denture - Upper, Denture - Lower and Glasses Review of Systems A total of 10 systems reviewed and were otherwise negative Physical Exam Vital Signs Vital Signs - 24 hr 12/18/24 22:50 12/18/24 22:58 12/19/24 00:30 Temperature 36.7 C Temperature Source Oral Pulse Rate 78 78 Pulse Rate [Apical] 76 Pulse Rhythm [Apical] Pulse Strength [Apical] Respiratory Rate 18 20 Respiratory Effort / Characteristics Non-Labored Respiratory Depth Normal Respiratory Pattern Blood Pressure 183/93 H Blood Pressure [Right Arm] 168/101 H Blood Pressure Mean 123 Blood Pressure Mean [Right Arm] 123 Blood Pressure Position [Right Arm] Pulse Oximetry 94 98 Oxygen Delivery Method Room Air Room Air Oxygen Flow Rate Sepsis Recent Fever Within 48 Hours No Sepsis New/Unexplained Change in Mental Status No Sepsis Action Taken by Nursing No Action Required 12/19/24 01:27 12/19/24 02:20 12/19/24 03:00 Temperature Temperature Source Pulse Rate 80 Pulse Rate [Apical] 73 72 Pulse Rhythm [Apical] Regular Regular Pulse Strength [Apical] Normal Normal Respiratory Rate 18 17 Respiratory Effort / Characteristics Non-Labored Spontaneous Non-Labored Spontaneous Respiratory Depth Normal Normal Respiratory Pattern Regular Regular Blood Pressure Blood Pressure [Right Arm] 151/81 H 106/71 Blood Pressure Mean Blood Pressure Mean [Right Arm] 104 82 Blood Pressure Position [Right Arm] Lying Pulse Oximetry 95 96 Oxygen Delivery Method Nasal Cannula Oxygen Flow Rate 2 Sepsis Recent Fever Within 48 Hours Sepsis New/Unexplained Change in Mental Status Sepsis Action Taken by Nursing VITALS: Vitals are noted on the nurse's note and reviewed by myself. Vital signs stable. GENERAL: Pleasant female, in no acute distress, nondiaphoretic, well-developed well-nourished. SKIN: Capillary reflex less than 2 seconds. HEENT: Normocephalic. PERRLA. EOMI. Nares patent. Mucous membranes moist. Neck is supple without nuchal rigidity. HEART: Regular rate and rhythm LUNGS: Clear to auscultation bilaterally without wheezes, rales or rhonchi. No retractions or accessory muscle use. ABDOMEN: Positive bowel sounds x 4. Normal tympanic percussion. Soft, nontender, without masses or organomegaly. Barrera sign negative. No guarding or rebound tenderness. no CVA tenderness MUSCULOSKELETAL: No gross musculoskeletal defects. No thoracic or lumbar tenderness. Pelvis stable. Positive right straight leg raise, negative left straight leg raise. Pedal pulses +2 equal and present bilaterally. Right hip nontender to palpation. Right femur nontender to palpation. NEURO: Patient was alert and oriented to person place and time. No focal neurological deficits. Course Administered Medications Fentanyl Citrate (Fentanyl Citrate Pf 100 Mcg/2 Ml Vial) 50 mcg IV Q15M PRN PRN Reason: Pain Stop: 01/01/25 23:43 Last Admin: 12/19/24 01:58 Dose: 50 mcg Documented By: Admin: 12/19/24 00:31 Dose: 50 mcg Documented By: Admin: 12/18/24 23:53 Dose: 50 mcg Documented By: MIGUELINA Discontinued Medications Acetaminophen (Ofirmev) 1,000 mg in 100 mls @ 400 mls/hr IV NOW STA Stop: 12/18/24 23:08 Last Infusion: 12/19/24 00:31 Dose: Infused Documented By: Admin: 12/18/24 23:47 Dose: 400 mls/hr Documented By: MIGUELINA Ondansetron HCl (Ondansetron Inj 2 Mg/Ml 2 Ml Vial) 4 mg IV NOW STA Stop: 12/18/24 23:45 Last Admin: 12/18/24 23:53 Dose: 4 mg Documented By: MIGUELINA Medical Decision Making Medical Records Attestation: I reviewed the patient's medical records. Home Medications Current Medication List: was personally reviewed by me Laboratory Data Attestation: I reviewed the patient's lab results. 12/18/24 22:54 12/18/24 22:54 Lab Results 12/18/24 Range/Units 22:54 WBC 6.96 (4.8-10.8) K/ul RBC 3.68 L (4.20-5.40) M/uL Hgb 12.0 (12.0-16.0) g/dl Hct 34.9 L (37.0-47.0) % MCV 94.8 (80.0-100.0) fL MCH 32.6 (25.0-34.0) pg MCHC 34.4 (32.0-36.0) g/dL RDW Std Deviation 42.6 (36.4-46.3) fL RDW Coeff of Lizzie 12.2 (11.5-14.5) % Plt Count 207 (130-400) K/uL MPV 9.8 (9.4-12.4) fL Immature Gran % (Auto) 0.3 % Neut % (Auto) 69.4 % Lymph % (Auto) 22.3 % Izard % (Auto) 7.3 % Eos % (Auto) 0.3 % Baso % (Auto) 0.4 % Neut # (Auto) 4.83 (1.40-6.50) K/uL Lymph # (Auto) 1.55 (1.20-3.40) K/uL Izard # (Auto) 0.51 (0.11-0.59) K/uL Eos # (Auto) 0.02 (0.00-0.50) K/uL Baso # (Auto) 0.03 (0.00-0.20) K/uL Immature Gran # (Auto) 0.02 (0.01-0.20) K/uL Sodium 134 L (136-145) mmol/L Potassium 3.8 (3.5-5.1) mmol/L Chloride 101 (98-107) mmol/L Carbon Dioxide 24 (21-32) mmol/L Anion Gap 9 (3-11) BUN 16 (6-23) mg/dl Creatinine 0.64 (0.6-1.2) mg/dl Est Cr Clr Drug Dosing 56.7 ml/min eGFR 88.18 BUN/Creatinine Ratio 25.0 H (10-20) Glucose 125 H (70-99(Fasting)) mg/dl Calcium 8.7 (8.6-10.3) mg/dl Total Bilirubin 0.7 (0.2-1.0) mg/dl AST 23 (13-39) U/L ALT 11 (7-52) U/L Alkaline Phosphatase 95 (34-104) U/L Total Protein 8.5 H (6.0-8.3) gm/dl Albumin 4.1 (3.4-5.0) gm/dl Globulin 4.4 H (2.5-4.0) gm/dl Albumin/Globulin Ratio 0.9 (0.9-2) Imaging Data Attestation: I personally reviewed and interpreted this imaging study as follows: Radiologist's Impression: Hip/Pelvis X-Ray 12/18/24 22:54 Exam(s): XR HIP + PELVIS, 2-3 views EXAM: XR Right Hip With Pelvis When Performed, 3 Views CLINICAL HISTORY: Reason for exam: pain. TECHNIQUE: 3 views of the right hip with pelvis when performed. COMPARISON: No relevant prior studies available. FINDINGS: Bones/joints: No acute fracture. No dislocation. There are hypertrophic degenerative changes. Soft tissues: Vascular calcifications are seen. IMPRESSION: Hypertrophic degenerative changes. If further evaluation is clinically necessary, consider correlation with MRI. Electronically signed by: Francisco Javier Salomon MD 12/19/24 03:[address] 12/18/24 22:55 EXAM: CT lumbar spine wo con CLINICAL HISTORY: Back Pain, hx Colon CA TECHNIQUE: CT scan of lumbar spine done. Axial images obtained with reformatted coronal and sagittal images and submitted for interpretation. One of the following dose reduction techniques were utilized for this exam: Automated exposure control, adjustment of the mA and/or kV according to patient size, use of iterative reconstruction. COMPARISON: 04/01/2019 FINDINGS: Lumbar spondylotic changes with marginal osteophytes. Osteoarthritis of facet joints. No acute fractures or traumatic subluxations are visualized. No destructive lesions are delineated. Posterior disc osteophyte complex, combined by facet hypertrophy causing spinal canal and neural foraminal stenosis at multiple levels. Vacuum phenomena seen at T12-L1 and L1 to discs. No lytic or sclerotic bone lesions. Decreased bone density. Severe aortic atherosclerotic changes. Left renal cysts. IMPRESSION: 1. No acute fractures or traumatic subluxations are visualized. No destructive lesions are delineated. 2. Spondylitic changes and multiple levels of posterior disc osteophyte complex and facet hypertrophy cause spinal canal and neural foraminal stenosis. 3. Diffuse osteopenia. 4. No significant interval changes. Electronically signed by Brad Brito 12-19-2024 02:53 AM [facility] Narrative Prior records/ancillary studies reviewed. Triage Nursing notes reviewed. Additional history obtained from family. The patient's history was concerning for back pain. Differential diagnosis: Etiologies such as musculoskeletal, disc herniation, fracture, aortic disease, metastatic disease, cord compression, discitis, infection, renal colic, gastrointestinal, acute exacerbation of chronic back pain, sciatica, cauda equina, as well as others were entertained. Physical findings: As above. No focal neurologic findings noted. ER treatment provided: Fentanyl, Zofran, Tylenol, fentanyl On reassessment the patient felt better. Diagnostics interpreted by me: The labs Independently Interpreted by myself revealed no worrisome leukocytosis, glucose 125 Imaging studies: Imaging was reviewed and read by radiology Consultation: A consultation was placed with hospitalist. The case was discussed and diagnostics were reviewed. They will evaluate the patient for possible admission. This appears to be consistent with intractable low back pain down the right leg. Patient did require multiple rounds of pain meds. She still uncomfortable. Her oxygen did drop and was placed on nasal cannula which improved. Medicine was consulted case discussed. She will be evaluated for possible admission. Imaging was negative for fracture. Stable labs. By the evaluation outlined above emergent etiologies such as fracture, aortic disease, metastatic disease, infection, renal colic, gastrointestinal, cord compression, cauda equina, as well as others were deemed relatively unlikely. The pt informed about the findings as listed above. All questions were answered and pleased with the treatment. The chart was completed utilizing [employer] voice recognition software. Grammatical errors, random word insertions, pronoun errors, and incomplete sentences are an occassional consequence of this system due to software limitations, ambient noise, and hardware issues. Any formal questions or concerns about the content, text, or information contained within the body of this dictation should be directly addressed to the physician assistant kitchen manager for clarification. Impression & Plan Acute lumbar radiculopathy, Intractable low back pain Discharge Plan Visit Data Chief Complaint: Hip Pain Stated Complaint: R Hip Pain, Unable to Ambulate ED Provider: Jg Freitas ED Midlevel Provider: Aline Finn Discharge Problem: Acute lumbar radiculopathy, Intractable low back pain Patient Disposition: Being Evaluated by Hospitalist Condition: Good Forms Stand Alone Forms: My [employer] Prescriptions Prescriptions: No Action atorvastatin 40 mg tablet 40 mg PO PM Qty: 90 1RF calcium carbonate-vitamin D3 [Calcium 600 with Vitamin D3] 1 dose PO BID aspirin [Adult Low Dose Aspirin] 81 mg tablet,delayed release (DR/EC) 81 mg PO PM Complete MV Adult 50 Plus 0.4 mg-300 mcg- 250 mcg tablet 1 tab PO DAILY latanoprost 0.005 % drops ophthalmic (eye) Lumigan 0.01 % drops ophthalmic (eye) PreserVision AREDS-2 250-90-40-1 mg Capsule 1 tab PO BID Referrals Referrals: Suze Polanco DO [Primary Care Provider] -
[2024-12-18] MEDS: ACETAMINOPHEN 1,000 MG/100 ML VIAL IV STA (23:47)
[2024-12-18] MEDS: ONDANSETRON INJ 2 MG/ML 2 ML VIAL IV STA (23:53)
[2024-12-18] MEDS: fentaNYL citrate PF 100 MCG/2 ML VIAL IV PRN (23:53)
[2024-12-19 00:50] LABS: Basophils # (auto) 0.03 K/uL (0.00-0.20); Basophils % (auto) 0.4 %; Eosinophils # (auto) 0.02 K/uL (0.00-0.50); Eosinophils % (auto) 0.3 %; Hematocrit (blood only) 34.9 % (37.0-47.0); Immature Granulocytes # (auto) 0.02 K/uL (0.01-0.20); Immature Granulocytes % (auto) 0.3 %; Lymphocytes # (auto) 1.55 K/uL (1.20-3.40); Lymphocytes % (auto) 22.3 %; Mean Corpuscular Hemoglobin 32.6 pg (25.0-34.0); Mean Corpuscular Hgb Conc 34.4 g/dL (32.0-36.0); Mean Corpuscular Volume 94.8 fL (80.0-100.0); Mean Platelet Volume 9.8 fL (9.4-12.4); Monocytes # (auto) 0.51 K/uL (0.11-0.59); Monocytes % (auto) 7.3 %; Neutrophils # (auto) 4.83 K/uL (1.40-6.50); Neutrophils % (auto) 69.4 %; Platelet Count 207 K/uL (130-400); RDW Coefficient of Variation 12.2 % (11.5-14.5); RDW Standard Deviation 42.6 fL (36.4-46.3); Red Blood Count 3.68 M/uL (4.20-5.40); White Blood Count 6.96 K/ul (4.8-10.8)
[2024-12-19 01:00] LABS: Albumin Globulin Ratio 0.9 (0.9-2); Albumin Level 4.1 gm/dl (3.4-5.0); Bilirubin,Total 0.7 mg/dl (0.2-1.0); Calcium 8.7 mg/dl (8.6-10.3); Creatinine Clr Calc Pharmacy 56.7 ml/min; Globulin 4.4 gm/dl (2.5-4.0); Potassium 3.8 mmol/L (3.5-5.1); Total Protein 8.5 gm/dl (6.0-8.3)
--- NOTE | 2024-12-19 02:53 | CT Scan Report ---
EXAM: CT lumbar spine wo con CLINICAL HISTORY: Back Pain, hx Colon CA TECHNIQUE: CT scan of lumbar spine done. Axial images obtained with reformatted coronal and sagittal images and submitted for interpretation. One of the following dose reduction techniques were utilized for this exam: Automated exposure control, adjustment of the mA and/or kV according to patient size, use of iterative reconstruction. COMPARISON: 04/01/2019 FINDINGS: Lumbar spondylotic changes with marginal osteophytes. Osteoarthritis of facet joints. No acute fractures or traumatic subluxations are visualized. No destructive lesions are delineated. Posterior disc osteophyte complex, combined by facet hypertrophy causing spinal canal and neural foraminal stenosis at multiple levels. Vacuum phenomena seen at T12-L1 and L1 to discs. No lytic or sclerotic bone lesions. Decreased bone density. Severe aortic atherosclerotic changes. Left renal cysts. IMPRESSION: 1. No acute fractures or traumatic subluxations are visualized. No destructive lesions are delineated. 2. Spondylitic changes and multiple levels of posterior disc osteophyte complex and facet hypertrophy cause spinal canal and neural foraminal stenosis. 3. Diffuse osteopenia. 4. No significant interval changes. Electronically signed by Brad Brito 12-19-2024 02:53 AM
--- NOTE | 2024-12-19 03:12 | XRay Report ---
Exam(s): XR HIP + PELVIS, 2-3 views EXAM: XR Right Hip With Pelvis When Performed, 3 Views CLINICAL HISTORY: Reason for exam: pain. TECHNIQUE: 3 views of the right hip with pelvis when performed. COMPARISON: No relevant prior studies available. FINDINGS: Bones/joints: No acute fracture. No dislocation. There are hypertrophic degenerative changes. Soft tissues: Vascular calcifications are seen. IMPRESSION: Hypertrophic degenerative changes. If further evaluation is clinically necessary, consider correlation with MRI. Electronically signed by: Francisco Javier Salomon MD 12/19/24 03:12 AM
[2024-12-19] MEDS ORDERED: oxyCODONE HCL IR 5 MG TAB (IMMEDIATE RELEASE) PO PRN ×2 (03:41)
[2024-12-19] MEDS ORDERED: MoRPHine SULFATE 2 MG/ML CARP IV PRN (03:41)
[2024-12-19] MEDS ORDERED: NALOXONE HCL 0.4 MG/1 ML VIAL/CARP IV PRN (03:44)
--- NOTE | 2024-12-19 03:45 | History & Physical Report ---
Date of Service December 19, 2024 Assessment & Plan (1) Intractable low back pain: (2) Acute lumbar radiculopathy: (3) Ambulatory dysfunction: (4) Acute hypoxic respiratory failure: (5) Hyponatremia: Plan Patient is an 84-year-old female with a past medical history of hyperlipidemia, CAD, s/p left CEA 2017, history of colon cancer s/p hemicolectomy and chemotherapy 2019, osteopenia, vitamin D deficiency. She presented via EMS due to severe right sided hip pain and inability to bear weight. She denies any trauma to the hip. The pain began after she went from sitting to standing getting off the toilet. She is being admitted for intractable back and hip pain along with hypoxia secondary to opioid use. #intractable back pain/lumbar radiculopathy/ambulatory dysfunction no trauma to the hip Patient went from sitting to standing and developed extreme pain and inability t o bear weight No numbness/tingling, no incontinence +straight leg test Lumbar spine CT showing spondylitic changes in multiple levels with posterior disc osteophyte complex and facet hypertrophy, spinal canal and neural foraminal stenosis XR showing hypertrophic degenerative changes, no acute fracture AP CT ordered to better eval hip consult ortho spine dc fentanyl - transition to Tylenol prn, Toradol prn, Oxycodone 5/10 (for pain not relieved by #1 and 2), morphine 2 Mg IV for breakthrough pain unrelieved by oxycodone lidocaine patch ordered PT/OT consulted given dexamethasone 6 mg IV once on admission differential includes lumbar radiculopathy, sciatica, lumbar disc herniation - may benefit from MRI if cause unrevealing #Hypoxia 2/2 IV opioids Narcan as needed Wean oxygen as tolerated Discontinue fentanyl and transition to pain regimen as above #Hyponatremia mild - NA 134 Suspect 2/2 hypovolemia as BUN/CR elevated to 25 and patient clincally dry Will order 500 mL NSS at 80 mL/hour on admission Trend BMP If sodium decreases or persistently hyponatremic could consider serum osmole, urine osmole, urine NA Chronic stable diagnoses: osteopenia/vitamin D deficiency continue supplement HLD/CAD s/p left CEA 2017, continue atorvastatin and ASA Hx colon cancer s/p hemicolectomy and chemotherapy 2019, stable glaucoma patient will need to bring in home eyedrops, unable to verify dosing on admission VTE ppx: SCDs - defer chemical PPx if eventual need for surgical management Diet: n.p.o. awaiting AP CT; if no acute fracture seen then can advance to heart healthy Dispo: med/telemetry with hypoxia Admission and Anticipated Discharge Date Admission Date: 12/19/24 History of Present Illness Chief Complaint: hip pain Primary Care Provider: Suze Polanco DO Patient is an 84-year-old female with a past medical history of hyperlipidemia, CAD, s/p left CEA 2017, history of colon cancer s/p hemicolectomy and chemotherapy 2018, osteopenia, vitamin D deficiency. She presented via EMS due to severe right sided hip pain and inability to bear weight. She denies any trauma to the hip. The pain began after she went from sitting to standing getting off the toilet. She is being admitted for intractable back and hip pain along with hypoxia secondary to opioid use. Patient seen at bedside with 2 daughters present. She stated that she was on her exercise bike for the first time in a while this evening and was only on it for roughly 5 minutes when she had to go to the bathroom. When she tried to get up from the toilet, she started limping and was unable to bear weight on her right leg due to severe hip pain. She stated that the pain started in her hip and eventually migrated to her low back and Radiates down her leg when she tries to move it. She was completely unable to bear weight and her daughters called the EMS. It was reported that she received 70 mcg of fentanyl in the EMS and then an additional 150 mcg of fentanyl along with IV Tylenol in the ED. Patient stated she has also had charley horses of her left leg since arrival to the ED. She denies any bladder or bowel incontinence. She denies any trauma to the area. She did fall on her right hip 3 to 4 years ago and had no significant issues with her hip since then. She denies any hip replacements. She denies chronic back pain. She denies history of COPD or asthma, does not use oxygen at baseline. Patient denies dizziness, lightheadedness, dyspnea, chest pain, abdominal pain, nausea, vomiting, diarrhea, numbness, tingling. She was a former smoker but quit roughly 22 years ago. She does not drink alcohol. She lives at home alone. She denies past history of DM or previous VTE. She does not use CPAP or BiPAP at home. She did take her a.m. medications yesterday but did not take her evening medication which consists of atorvastatin. She wishes to be full code at this time. Allergies Allergy/AdvReac Type Severity Reaction Status Date / Time Sulfa (Sulfonamide AdvReac Mild Drowsy Verified 07/06/24 09:58 Antibiotics) Home Medications Medication Instructions Recorded Confirmed Type aspirin 81 mg tablet,delayed 81 mg PO PM 09/28/19 12/19/24 History release (Adult Low Dose Aspirin) vit C 250 mg-vit E 90 mg-zinc 40 1 tab PO BID 02/09/21 12/19/24 History mg-copper 1 [id number] capsule (PreserVision AREDS-2) calcium carbonate-vitamin D3 1 dose PO BID 06/16/21 07/06/24 History [Calcium 600 with Vitamin D3] [id number]-ugcrp acid 0.4 1 tab PO DAILY 07/03/23 12/19/24 History mg-lycopene 300 mcg-lutein 250 mcg tablet (Complete Multivitamin Adult 50 Plus) bimatoprost 0.01 % eye drops drp ophthalmic (eye) 07/06/24 07/06/24 History (Lumigan) atorvastatin 40 mg tablet 40 mg PO PM #90 tabs 10/23/24 12/19/24 Rx bimatoprost 0.01 % eye drops drp 12/19/24 History (Lumigan) latanoprost 0.005 % eye drops drp 12/19/24 History timolol maleate 0.25 % eye drops drp 12/19/24 History Past Med/Surg History Problem List (Updated 12/19/24 @ 03:58 by Alexandra Abernathy PA-C) Hyponatremia Acute hypoxic respiratory failure Ambulatory dysfunction Intractable low back pain (Acute) Acute lumbar radiculopathy (Acute) Adenocarcinoma of colon chemo was for this Mild tricuspid regurgitation by prior echocardiogram Grade I diastolic dysfunction History of colon cancer Vitamin D deficiency Osteopenia Microcytic hypochromic anemia Carotid artery narrowing s/p left CEA; assessed every 2 years GHS Osteoarthritis LBBB (left bundle branch block) dating back to at least 07/2018 per records Hyperlipidemia Medical History Adenocarcinoma of colon Vitamin D deficiency Peripheral neuropathy Port-A-Cath in place Carotid artery narrowing Microcytic hypochromic anemia Osteopenia Hyperlipidemia LBBB (left bundle branch block) Osteoarthritis Surgical History History of cataract surgery S/P wrist surgery S/P vascular surgery H/O right hemicolectomy (02/02/19) History of carotid endarterectomy (08/2018) Family history of reaction to anesthesia Nausea and vomiting after administration of anesthetic agent History of colonoscopy History of tooth extraction History of eye surgery History of bilateral tubal ligation Hx of cholecystectomy Family History Sister Family history of diabetes mellitus Mother Coronary heart disease Hypertension Pacemaker Father Stroke, Onset Age: 52 Hypertension Brother Lung cancer Denies family history of Ovarian cancer Prostate cancer Myocardial infarction Breast cancer Colorectal cancer Social History Smoking Status: Former smoker Tobacco Type: Cigarettes Age Quit Using Tobacco: 62; packs per day: 0.5; Second Hand Exposure: No; Do You Dip or Chew Tobacco: No; Hx Alcohol Use: No Hx Substance Use: No Preferred Language: Portuguese Communication Ability: Effective Visual Impairment: Limited Hearing Ability: Normal Fireworks Inspector Required: No Beliefs That Will Affect Care: None marital status: / Current Living Situation: Alone current occupational status: retired Other Information That Helps Us Care for You: No Feels Safe at Home: Yes Safety Concerns: Feels Safe At This Time Childhood Exposure to Second-Hand Smoke: No caffeine: Yes (Tea x 1 cup per day. ) during the past year weight has: remained stable Dental Care, Regularly: No Physical Activity Frequency: Daily Seatbelt Use: always Sunscreen Use: Yes Assistive Devices: Denture - Upper, Denture - Lower and Glasses Review of Systems Review of Systems: see HPI Physical Exam Physical Exam: The patient is awake, alert and oriented 3, well developed and well nourished, normocephalic and atraumatic, in no acute distress. Non-toxic appearing. HEENT- EOMI, mucous membranes dry. Hearing grossly intact. Heart-normal S1 and S2. No murmurs, rubs or gallops. Lungs-clear bilaterally, no respiratory distress, no accessory muscle use. Abdomen-normal bowel sounds and soft. No ascites noted. Non-tender. Extremities- no clubbing, cyanosis, or edema. Psychiatric-normal affect. Musculoskeletal: Hip: + limited ROM of hip Unable to lift right leg off bed more than 2 inches. Left leg motion WNL. No sensory deficits 5/5 strength bilateral with plantarflexi on and dorsi flexion. +straight leg test right LE Results & Data Results & Data Vital Signs (Past 12 Hours) Vital Signs Temp Pulse Pulse Resp BP BP Pulse Ox 12/19/24 03:00 80 12/19/24 02:20 72 17 106/71 96 12/19/24 01:27 73 18 151/81 H 95 12/19/24 00:30 76 20 168/101 H 98 12/18/24 22:58 78 12/18/24 22:50 36.7 C 78 18 183/93 H 94 O2 Del Method O2 Flow Rate 12/19/24 03:00 12/19/24 02:20 Nasal Cannula 2 12/19/24 01:27 12/19/24 00:30 Room Air 12/18/24 22:58 12/18/24 22:50 Room Air Laboratory Results Reviewed CBC and CMP Diagnostic Findings reviewed CXR and lumbar spine CT Medications Administered EMS75 mcg fentanyl ED150 mcg fentanyl, IV Tylenol, Zofran ECG Additional Comments: Ordered Code Status & VTE Plan Code Status Full code VTE Prophylaxis Plan VTE Prophylaxis will be ordered: Yes Supervising Physician Co-Signing Physician Notes Attending addendum: I have physically seen this patient, have supervised the LYDIA's activities, and agree with the H&P unless as otherwise noted. Assessment and Plan: The patient is a 84-year-old female past medical history including hyperlipidemia, CAD, status post left CEA 2018, colon cancer status post hemicolectomy and chemotherapy 2018, osteopenia, vitamin D deficiency. She presents to the emergency department with acute onset of severe low back pain and right-sided hip pain and inability to bear weight, with no history of recent trauma. She reports pain began initially as she was trying to get up off the toilet. She is referred to [facility] for admission for pain control #Intractable low back pain/lumbar radiculopathy/ambulatory dysfunction- No history of recent trauma Lumbar spine CT showing spondylitic changes at multiple levels with posterior disc osteophyte complex and facet hypertrophy, spinal canal and neuroforaminal stenosis CT abdomen pelvis added with no additional findings Received multiple doses of fentanyl in the ED which caused some mild hypoxia Pain control Tylenol, Toradol, oxycodone serially as noted, with morphine for breakthrough as noted Add Lidoderm patch Consult PT/OT Trial dexamethasone 6 mg IV x 1 Consult orthopedic surgery May need inpatient rehab #Chronic medical issues: Glaucoma-continue current drops Hyperlipidemia-continue atorvastatin #CODE STATUS: Full code PG Care Time/CCT Total # of Minutes Spent Total Time Spent with Patient: Total time spent is greater than 50% in coordination of care (as documented) at patient's floor/unit and/or counseling patient: Coding Level of Care Code 07384 INT INP/OBS CARE 75MIN Diagnoses Intractable low back pain M54.59 Acute lumbar radiculopathy M54.16 Ambulatory dysfunction R26.2 Acute hypoxic respiratory failure J96.01 Hyponatremia E87.1
[2024-12-19] MEDS ORDERED: MELATONIN 3 MG TAB PO PRN (04:20)
[2024-12-19] MEDS ORDERED: ONDANSETRON INJ 2 MG/ML 2 ML VIAL IV PRN (04:20)
[2024-12-19] MEDS: LIDOCAINE 5% 1 PATCH TD STA (05:07)
[2024-12-19] MEDS: dexAMETHasone 6 MG in SYRINGE 0 ML IV ONE (05:08)
[2024-12-19] MEDS: ACETAMINOPHEN 1,000 MG/100 ML VIAL IV PRN (05:08)
[2024-12-19] MEDS: SODIUM CHLORIDE 0.9% 500 ML IV SCH (05:09)
[2024-12-19 05:42] LABS: BUN Creatinine Ratio 22.7 (10-20)
[2024-12-19 05:43] LABS: Basophils # (auto) 0.03 K/uL (0.00-0.20); Basophils % (auto) 0.4 %; Eosinophils # (auto) 0.01 K/uL (0.00-0.50); Eosinophils % (auto) 0.1 %; Hematocrit (blood only) 34.4 % (37.0-47.0); Hemoglobin 11.6 g/dl (12.0-16.0); Immature Granulocytes # (auto) 0.03 K/uL (0.01-0.20); Immature Granulocytes % (auto) 0.4 %; Lymphocytes % (auto) 16.1 %; Mean Corpuscular Hemoglobin 32.5 pg (25.0-34.0); Mean Corpuscular Hgb Conc 33.7 g/dL (32.0-36.0); Mean Corpuscular Volume 96.4 fL (80.0-100.0); Monocytes # (auto) 0.56 K/uL (0.11-0.59); Monocytes % (auto) 6.9 %; Neutrophils # (auto) 6.16 K/uL (1.40-6.50); Neutrophils % (auto) 76.1 %; Platelet Count 196 K/uL (130-400); RDW Coefficient of Variation 12.3 % (11.5-14.5); RDW Standard Deviation 43.4 fL (36.4-46.3); Red Blood Count 3.57 M/uL (4.20-5.40); White Blood Count 8.09 K/ul (4.8-10.8)
--- NOTE | 2024-12-19 05:54 | CT Scan Report ---
EXAM: CT abd pelvis wo con CLINICAL HISTORY: right hip pain TECHNIQUE: Contiguous axial images were obtained from the level of the diaphragm to the pubic symphysis without intravenous or oral contrast. Coronal and sagittal reconstructions were likewise performed and indicated to increase the sensitivity for detecting clinically relevant pathology. CT scan was performed according to ALARA (as low as reasonable achievable). COMPARISON: 23 aug 2022 FINDINGS: The visualized lung bases are clear. Evaluation of the abdominal and pelvic visceral organs is limited without intravenous contrast. The unenhanced liver, spleen, pancreas, and adrenal glands are grossly unremarkable. The gallbladder is removed. The kidneys are normal in size and attenuation without obvious calcification. There is no hydronephrosis or perinephric stranding. Left kidney shows exophytic cortical cyst of size 65 x 36 mm in upper pole 30 x 32 mm in lower pole. Right kidney shows tiny concretion in mid calyx. The ureters are normal in caliber. No adenopathy or fluid collections are seen. No evidence of focal or diffuse bowel wall thickening or evidence of bowel obstruction is seen. The appendix is visualized in the right lower quadrant and appears within normal limits. The aorta is normal in caliber. The urinary bladder is normal in contour. Pelvic viscera are grossly unremarkable. No aggressive appearing osseous lesions are identified. Diffuse atherosclerotic calcification is noted involving aorta iliac arteries. IMPRESSION: Left kidney shows exophytic cortical cyst of size 65 x 36 mm in upper pole 30 x 32 mm in lower pole.-stable. Right kidney shows tiny concretion in mid calyx.-stable. No other new interval abnormality since prior study. Electronically signed by Magdi Boswell 12-19-2024 05:54 AM
--- OUTSIDE RECORDS SUMMARY | 2024-12-19 06:22 | External Medical Summary | Summary of Care ---
Author Name Unknown Organization [facility] Address [address] [place] [address] Phone [phone] Care Team Providers Care Field Insurance Sales Manager Name Role Phone Suze Polanco DO Primary Care Provider [phone]- [phone] Encounter Details Date Type Department Care Team (Late st Contact Info) Description 11/27/2024 Telephone Ophthalmology, [facility] [address] [place] [address] Hitesh Toledo DO [address] [place] [id number] Allergies Active Allergy Reactions Criticality Noted Date Comments Sulfa Antibiotics 02/15/2014 documented as of this encounter (statuses as of 11/27/2024) Medications aspirin 81 MG chewable tablet Take 1 Tab by mouth daily. 30 Tab 3 08/04/2018 Active atorvaSTATin (LIPITOR) 40 MG Tablet Take 1 Tab by mouth daily. 30 Tab 6 05/22/2019 Active PreserVision AREDS 2 Oral Capsule Take 1 Capsule by mouth in the morning and 1 Capsule before bedtime. Active Oyster Shell Calcium/D 500-200 MG-UNIT Oral Tablet Take 1 Tablet by mouth in the morning. Active Vitamin D 50 MCG (1999 UT) Oral Tablet Take by mouth 1 Tablet in the morning. Active Alendronate Sodium 70 MG Oral Tablet (Fosamax) Take 1 Tablet by mouth once a week. 01/23/2023 Active Refresh 1.4-0.6 % Ophthalmic Solution (polyvinyl alcohol-povidon e PF) Instill 1 Drop into both eyes as needed for Other. Active Timolol Maleate 0.25 % Ophthalmic Solution (Timoptic) Instill into eye. 07/15/2024 Active Latanoprost 0.005 % Ophthalmic Solution (Xalatan) 07/17/2024 Active Hospital, Clinic, or Other Facility Administered Medication Ordered Dose Route Frequency Start Date End Date Status Aflibercept (Eylea) intraviteal prefilled syringe 2 mgIndications:Exudative age-related macular degeneration of right eye with active choroidal neovascularization (HCC) 2 mg IZ PRN 08/03/2024 08/03/2025 Active ROPivacaine (Naropin) inj 1.5 mgIndications:Exudative age-related macular degeneration of right eye with active choroidal neovascularization (HCC) 1.5 mg IJ PRN 08/03/2024 08/03/2025 Active documented as of this encounter (statuses as of 11/27/2024) Active Problems Problem Noted Date Diagnosed Date Bilateral carotid artery stenosis 01/02/2023 Stenosis of left carotid artery 08/22/2018 Elevated blood pressure read ing without diagnosis of hypertension 08/27/2016 documented as of this encounter (statuses as of 11/27/2024) Social History Tobacco Use Types Packs/Day Years Used Date Smoking Tobacco: Former Smokeless Tobacco: Never Alcohol Use Standard Drinks/Week Comments No 0 (1 standard drink = 0.6 oz pur e alcohol) Comments Unknown Sex and Gender Information Value Date Recorded Sex Assigned at Not on file Legal Sex Female 5:26 AM EST Gender Identity Not on file Sexual Orientation Not on file documented as of this encounter Functional Status * Are you deaf or do you have serious difficulty hearing? Answer Date of Assessment Author No 08/22/2018 12:11 PM Lynne Arriaga RN * Are you blind or do you have serious difficulty seeing, even when wearing glasses? Answer Date of Assessment Author No 08/22/2018 12:11 PM Lynne Arriaga RN * Do you have serious difficulty walking or climbing stairs? (5 years old or older) Answer Date of Assessment Author No 08/22/2018 12:11 PM Lynne Arriaga RN * Do you have difficulty dressing or bathing? (5 years old or older) Answer Date of Assessment Author No 08/22/2018 12:11 PM EDT Lynne Holcomb RN * Because of a physical, mental, or emotional condition, do you have difficulty doing errands alone such as visiting a doctors office or shopping? (15 years old or older) Answer Date of Assessment Author No 08/22/2018 12:11 PM EDT Lynne Holcomb RN documented as of this encounter Mental Status * Because of a physical, mental, or emotional condition, do you have serious difficulty concentrating, remembering, or making decisions? (5 years old or older) Answer Entry Date Author No 08/22/2018 12:11 PM EDT Lynne Holcomb RN documented in this encounter Miscellaneous Notes * Telephone Encounter - Brenda Duran OSA - 11/27/2024 3:02 PM EST Patient was to return in 8-10 weeks. Called and spoke with patient, she is scheduled for 02/01/25 @ 2:30 documented in this encounter Plan of Treatment Upcoming Encounters Date Type Department Care Team (Late st Contact Info) Description 02/01/2025 2:30 PM EDT Office Visit Ophthalmology, [facility] [address] [place] [address] Hitesh [place], [address] [place] [address] Health Maintenance Due Date Last Done Comments DTap/Tdap Vaccines (1 - Tdap) 1959 Depression Screening 08/27/2017 08/27/2016 Zoster Vaccines (2 of 3) 01/28/2018 12/03/2017 COVID-19 Vaccine (1 - 2023-2 5 season) 2024 Influenza Vaccine (FLU shot) (#1) 2024 DXA Scan 01/17/2030 01/17/2023, 01/10/2012 Pneumococcal Vaccine: 50+ Years Completed 12/03/2017, 12/03/2017 HPV (Gardasil) Vaccine Aged Out No lo nger eligible based on patient's age to complete this topic Hepatitis B Vaccine Aged Out No longe r eligible based on patient's age to complete this topic MENINGOCOCCAL (MENACTRA/MENVEO) Aged Out No longer eligible b ased on patient's age to complete this topic documented as of this encounter Medical Devices Not on filedocumented as of this encounter Advance Directives * Full Code (Latest Code Status on File) Date Activated Date Inactivated Comments 08/22/2018 10:01 AM 08/23/2018 2:00 PM Question Answer Comments Discussion of Advance Directives occurred with: Not Discussed Does the patient have a Living Will? No Does the patient have Health Care Power of Attor bushra? No Care Teams Field Insurance Sales Manager Relationship Specialty Start Date End Date Suze Polanco DO [address] [facility] [address] [place] [address] PCP - General Family Medicine 07/15/18 documented as of this encounter
--- OUTSIDE RECORDS SUMMARY | 2024-12-19 06:22 | External Medical Summary | Summary of Care ---
Author Name Unknown Organization [facility] Address [address] [place] [address] Phone [phone] Care Team Providers Care Network Lead Name Role Phone GerryayshaSuze Gem Primary Care Provider +1- [phone] Encounter Details Date Type Department Care Team (Late st Contact Info) Description 12/07/2024 Population Health External Data Unspecified Department Allergies Active Allergy Reactions Criticality Noted Date Comments Sulfa Antibiotics 02/15/2014 documented as of this encounter (statuses as of 12/07/2024) Medications aspirin 81 MG chewable tablet Take [...] as of this encounter (statuses as of 12/07/2024) Active Problems Problem Noted Date Diagnosed Date Bilateral carotid artery stenosis 01/02/2023 Stenosis of left carotid artery 08/22/2018 Elevated blood pressure read ing without diagnosis of hypertension 08/27/2016 documented as of this encounter (statuses as of 12/07/2024) Social History Tobacco Use Types Packs/Day Years [...] 08/22/2018 12:11 PM Lynne Arriaga RN * Because of a physical, mental, [...] Lynne Holcomb RN documented in this encounter Plan of Treatment Upcoming Encounters Date Type Department Care Team (Late st Contact Info) Description 02/01/2025 2:30 PM EDT Office Visit Ophthalmology, [facility] [address] [place] [address] Hitesh Toledo DO [address] [place] [address] Health Maintenance Due Date Last Done Comments [...] Power of Attor bushra? No Care Teams Network Lead Relationship Specialty Start Date End Date Suze Polanco DO [address] [facility] [address] [place] [address] PCP - General Family Medicine 07/15/18 documented as of this encounter
--- OUTSIDE RECORDS SUMMARY | 2024-12-19 06:23 | External Medical Summary | Summary of Care ---
Author Name Unknown Organization [facility] Address [address] [place] [address] Phone [phone] Care Team Providers Care Laboratory Clerk Name Role Phone Suze Polanco DO Primary Care Provider [phone]- [phone] Reason for Visit * Reason Comments Follow Up * Precert (Within 10 days (routine)) - Authorized Specialty Diagnoses / Procedures Referred By Lianna herrera Referred To Contact Ophthalmology Diagnoses Exudative age-related macular degeneration, right eye, with active choroidal neovascularization (HCC) Procedures WA AFLIBERCEPT INJECTION WA INTRAVITREAL NJX PHARMACOLOGIC AGT SPX Hitesh Toledo DO [address] [place] [address] Phone: tel: fax: Referral ID Status Reason Start Date Expiration Date V isits Requested Visits Authorized [id number] Authorized Precert 05/01/2023 11/17/2099 [id number] Encounter Details Date Type Department Care Team (Late st Contact Info) Description 11/26/2024 2:15 PM EST Office Visit Ophthalmology, [facility] [address] [place] [address] Hitesh Toledo DO [address] [place] [id number] Exudative age-related macular degeneration of right eye with active choroidal neovascularization (HCC)*; 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 Active Vitamin D 50 MCG (2000 UT) Oral Tablet Take by mouth 1 [...] as of this encounter (statuses as of 11/26/2024) Active Problems Problem Noted Date Diagnosed Date Bilateral carotid artery stenosis 01/02/2023 Stenosis of left carotid artery 08/22/2018 Elevated blood pressure read ing without diagnosis of hypertension 08/27/2016 documented as of this encounter (statuses as of 11/26/2024) Social History Tobacco Use Types Packs/Day Years [...] Assessment Author No 08/22/2018 12:11 PM Lynne Arrigaa RN * Are you blind or do [...] No 08/22/2018 12:11 PM Lynne Arriaga RN documented as of this encounter Mental Status * Because of a physical, mental, or emotional condition, do you have serious difficulty concentrating, remembering, or making decisions? (5 years old or older) Answer Entry Date Author No 08/22/2018 12:11 PM Lynne Arriaga RN documented in this encounter Progress Notes * Hitesh Toledo DO - 11/26/2024 2:15 PM EST [facility] [place] Nursing notes reviewed. Eye vitals reviewed. Mood and Affect: normal Nursing Notes: Aline Whitehead TECH 11/26/24 1351 Signed Monserrat Zeng is a 84 year old year old female who presents for AMD. Last Office Visit: 09/28/2024 (in office), Visit date not found (telemedicine) Patient currently states no change in vision. Are you diabetic? No Do you drive? yes OCT image(s) of both eyes acquired and filed/scanned into chart. Base Eye Exam Visual Acuity (Snellen - Linear) Right Left Dist cc 20/25 -2 20/30 -1 Correction: Glasses Tonometry (Tonopen, 1:50 PM) Right Left Pressure 16 15 Pupils Pupils Shape React APD Right PERRL Round Brisk None Left PERRL Round Brisk None Visual Amaro (Counting fingers) Right Left Full Full Extraocular Movement Right Left Full, Ortho Full, Ortho Neuro/Psych Oriented x3: Yes Mood/Affect: Normal Dilation Both eyes: 0.5% Proparacaine @ 1:48 PM Dilation #2 Both eyes: 1.0% Mydriacyl, 2.5% Phenylephrine @ 1:50 PM EXTERNAL: The ocular adnexae are unremarkable. SLE: Lids/Lashes: wnl OU Conjunctiva/Sclera: quiet OU Cornea: clear OU Anterior Chamber: deep and quiet OU Iris: normal OU; no NVI OU Lens: PCIOL OU; yag cap OD Dilated fundus exam OD: vitreous: pvd optic nerve: 0.5, no edema/pallor/NVD macula: drusen; GA vessels: wnl periphery: wnl, no RT/RD Dilated fundus exam OS: vitreous: pvd optic nerve: 0.5, no edema/pallor/NVD macula: drusen/pig changes/GA vessels: wnl periphery: wnl, no RT/RD OCT Interpretation: OD: fibrovascular PED w/ resolved recurrent srfluid/cme, drusen--STABLE, prior STABLE, prior improved 44um prior worse 53um prior improved, prior improved 45um prior worse, prior worse 26um prior STABLE, prior STABLE, prior STABLE, prior mproved 86um OS: drusen, atrophy, no srlfuid/cme--STABLE, prior stable A/P: 1. Age-Related Macular Degeneration OD: wet -Avastin 04/30/23, 03/05/23, 12/28/22, 11/08/22, 10/04/22, 09/03/22, 07/20/22 -6 weeks; worse at 8 weeks -Eylea 09/28/24, 08/03/24, 04/07/24, 02/07/24, 12/09/23, 10/14/23, 08/05/23, 06/12/23 -8 weeks; recurrent fluid at 10 weeks; better at 8 weeks OS: dry -An examination for this condition was completed which is unrelated to the procedure that was performed today. -recommend AREDS2 MVI as directed and Amsler grid qday -monitor 2. Posterior Vitreous Detachment OU -no RT/RD -advised to return to clinic if she should experience worsening or new floaters, flashes of light, a shadow in the periphery, or decrease in vision. 3. Pseudophakia OU -stable 4. Glaucoma suspect OU -followed by Dr. Martinez F/u 8-10 weeks, OCT OU Hitesh Toledo DO CC: Alex Martinez DO CC: PCP: Suze Polanco DO TIMEOUT PROCEDURE: correct patient identity-YES correct procedure and consent-YES verified side and site-YES correct patient position-YES all necessary equipment/prior studies present-YES reviewed special requirements of this patient-YES PROCEDURE: Intravitreal injection of Eylea (aflibercept) 2mg OD INFORMED CONSENT: Risks, benefits and alternatives have been discussed with the patient. Risks include, but are not limited to: retinal tears, detachments, hemorrhage, glaucoma, infection, cataracts, need for more procedures and the potential risk of arterial thromboembolic events following use of intravitreal VEGF inhibitors defined as nonfatal stroke, nonfatal myocardial infarction or vascular . Patient is aware of these risks and consents to the procedure. DESCRIPTION OF PROCEDURE: The procedure site was confirmed. Topical proparacaine was applied to the surface of the eye after which subconjunctival anesthetic was administered. The area was prepped in the standard aseptic manner with 5% Betadine solution. An eyelid speculum was placed and 2mg (0.05 ml) of Eylea was injected 3.75 mm posterior to the limbus into the midvitreous cavity with a 30 gauge short needle. The eye speculum was removed, Betadine was flushed from the eye and optic nerve perfusion was insured. The patient tolerated the procedure without difficulty and was given followup instructions and instructed to use ophthalmic ointment 3x/day as needed. Hitesh Toledo DO, performed the procedure in its entirety. documented in this encounter Nursing Notes * Aline Whitehead TECH - 11/26/2024 2:09 PM EST Monserrat Zeng to receive 10 Eylea 2mg Injection of the Right eye. Correct eye confirmed with patient and marked by Hitesh Toledo DO Eylea 2mg lot # [id number] Exp. Date: 01/2026 * Aline Whitehead TECH - 11/26/2024 1:45 PM EST Monserrat Zeng is a 84 year old year old female who presents for AMD. Last Office Visit: 09/28/2024 (in office), Visit date not found (telemedicine) Patient currently states no change in vision. Are you diabetic? No Do you drive? yes OCT image(s) of both eyes acquired and filed/scanned into chart. 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 involvement Ordered: 11/26/2024 Health Maintenance Due Date Last Done Comments DTap/Tdap Vaccines (1 - Tdap) 1959 Depression Screening 08/27/2017 08/27/2016 Zoster Vaccines (2 of 3) 01/28/2018 12/03/2017 COVID-19 Vaccine (2023-2 5 season) 2024 Influenza Vaccine (FLU shot) [...] Not on filedocumented as of this encounter Visit Diagnoses Diagnosis Exudative age-related macular degeneration of right eye with active choroidal neovascularization (HCC)- Primary 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 involvement documented in this encounter Administered Medications Active Administered Medications - up to 3 most recent administrations Medication Order MAR Action Action Date Dose Rate Site Aflibercept (Eylea) intraviteal prefilled syringe 2 mg 2 mg, Intravitreal, PRN Other, Starting on Sat08/03/24 at 1428, Until Sat08/03/25 at 1427, For 365 daysIndications:Exudative age-related macular degeneration of right eye with active choroidal neovascularization (HCC) Given 11/26/2024 2:10 PM EST 2 mg Eye Right Given 09/28/2024 2:25 PM EST 2 mg Ey e Right Given 08/03/2024 2:34 PM EDT 2 mg Ey e Right ROPivacaine (Naropin) inj 1.5 mg 1.5 mg, Injection, PRN Other, Starting on Sat08/03/24 at 1428, Until Sat08/03/25 at 1427, For 365 daysIndications:Exudative age-related macular degeneration of right eye with active choroidal neovascularization (HCC) Given 11/26/2024 2:10 PM EST 1.5 mg Eye R ight Given 09/28/2024 2:24 PM EST 1.5 mg Ey e Right Given 08/03/2024 2:33 PM EDT 1.5 mg Ey e Right documented in this encounter Advance Directives * Full Code (Latest Code Status on File) Date Activated Date Inactivated Comments 08/22/2018 10:01 AM 08/23/2018 2:00 PM Question Answer Comments Discussion of Advance Directives occurred with: Not Discussed Does the patient have a Living Will? No Does the patient have Health Care Power of Attor bushra? No Care Teams Laboratory Clerk Relationship Specialty Start Date End Date Suze Polanco DO [address] [place] [address] PCP - General Family Medicine 07/15/18 documented as of this encounter
--- NOTE | 2024-12-19 07:25 | Hospitalist Progress Note ---
Date of Service December 19, 2024 Assessment & Plan (1) Intractable low back pain: Plan: Pt is an 84yo female with a PMH of hyperlipidemia, CAD, s/p left CEA 2017, history of colon cancer s/p hemicolectomy and chemotherapy 2019, osteopenia, and vitamin D deficiency. She presented via EMS due to severe right sided hip pain and inability to bear weight. Intractable back pain/ambulatory dysfunction - pt went from sitting to standing and developed extreme pain and inability to bear weight; no trauma - hip/pelvic XR showing degenerative changes, no acute fracture; lumbar spine CT showing spondylitic changes in multiple levels with posterior disc osteophyte c omplex and facet hypertrophy, spinal canal and neural foraminal stenosis; CTAP unrevealing - s/p dexamethasone on admission and lidocaine patch - suspect pain secondary to acute muscle spasm; will add magnesium, voltaren gel, and heat PRN Hyponatremia- resolved - Na 134 on admission - s/p 500cc NS on admission Hypoxia- resolved - no documented hypoxia this hospital stay Chronic stable diagnoses: osteopenia/vitamin D deficiency continue supplement HLD/CAD s/p left CEA 2017, continue atorvastatin and ASA Hx colon cancer s/p hemicolectomy and chemotherapy 2019, stable glaucoma patient will need to bring in home eyedrops, unable to verify dosing Diet: heart healthy Code: full VTE ppx: lovenox Dispo: med/surg (2) Hyponatremia: (3) Ambulatory dysfunction: (4) Vitamin D deficiency: (5) Carotid artery narrowing: (6) Hyperlipidemia: Admission and Anticipated Discharge Date Admission Date: December 19, 2024 Supervising Physician Co-Signing Physician Notes I personally examined the patient and verified all lipscomb points of history and exam, discussed case, and agree with decision making with Dr Naif Batista "hip" pain but points to mid buttock. pain down back of leg seems more vague and doesn't go past knee or track a dermatome vitals noted nad heent nc at mmm breathing unlabored no accessory muscles good effort skin no rashes no pallor or icterus msk/ost R sided buttocks musculature in region of piriformis - LAS done with some change in tissue texture, pt tolerated well hip pain/ambulatory dysfunction -MSK - piriformis mediated -OMT done -IV mag, topical diclofenac -scheduled tylenol, prn toradol for pain -PT/OT eval and treat otherwise as above Subjective Pt evaluated at bedside this AM. Pt very groggy and sleepy as she had not slept much the prior night. Her daughter is at bedside to provide history as well. They confirmed what was further stated saying that the pt's hip pain began after standing up from sitting on the toilet. She has never had pain like this before and has not hx of back or hip surgeries. At the time of assessment, pt denies pain. Review of Systems Review of Systems: As per HPI Physical Exam Physical Exam: Constitutional: well appearing but sleepy, no acute distress HEENT: normocephalic, no conjunctival injection CV: RRR, no murmur, no LE edema Respiratory: CTA bilaterally. No rhonchi, wheezes, or crackles. No increased work of breathing MSK: no gross deformities noted Skin: warm, dry, no rashes Neuro: alert, oriented, no FND noted Psych: mood and affect congruent Results & Data Results & Data Vital Signs (Past 12 Hours) Vital Signs Temp Pulse Pulse Resp BP BP Pulse Ox 12/19/24 07:03 72 12/19/24 07:00 72 128/65 95 12/19/24 06:05 73 23 132/63 99 12/19/24 03:00 80 12/19/24 02:57 73 17 129/64 99 12/19/24 02:20 72 17 106/71 96 12/19/24 01:27 73 18 151/81 H 95 12/19/24 00:30 76 20 168/101 H 98 12/18/24 22:58 78 12/18/24 22:50 36.7 C 78 18 183/93 H 94 O2 Del Method O2 Flow Rate 12/19/24 07:03 12/19/24 07:00 Nasal Cannula 2 12/19/24 06:05 Nasal Cannula 2 12/19/24 03:00 12/19/24 02:57 Room Air 12/19/24 02:20 Nasal Cannula 2 12/19/24 01:27 12/19/24 00:30 Room Air 12/18/24 22:58 12/18/24 22:50 Room Air Resident Activity Tracking Resident Involvement: Resident Care Provided Care Provided: Adult [facility]
[2024-12-19] MEDS: CALCIUM 600MG + VIT D 400 IU TAB PO SCH (08:48)
[2024-12-19] MEDS ORDERED: LIDOCAINE 5% 1 PATCH TD SCH (09:00)
[2024-12-19] MEDS: KETOROLAC TROMETHAMINE 15 MG/ML VIAL IV PRN (09:18)
[2024-12-19 10:17] LABS: Appearance Urine Clear (Clear); Bilirubin Urine Negative (Negative); Blood Urine Negative (Negative); Color Urine Yellow; Glucose Urine UA Negative (Negative); Ketones Urine 1+ (Negative); Leukocyte Esterase Urine Negative (Negative); Nitrite Urine Negative (Negative); Protein Urine Negative (Negative); Specific Gravity Urine 1.015 (1.000-1.030); Urobilinogen Urine Negative (Negative)
[2024-12-19] MEDS: MAGNESIUM SULFATE / D5W 1 GM/100 ML BAG IV SCH (13:54)
[2024-12-19] MEDS: ACETAMINOPHEN 325 MG TAB PO ONE (14:28)
[2024-12-19] MEDS: DICLOFENAC SOD 1% GEL 100 GM TUBE EXT SCH (17:36)
[2024-12-19] MEDS: ACETAMINOPHEN 325 MG TAB PO SCH (20:32)
[2024-12-19] MEDS: ATORVASTATIN 40 MG TAB PO SCH (20:32)
[2024-12-19] MEDS: ASPIRIN 81 MG ECTAB PO SCH (20:32)
[2024-12-19] MEDS: LATANOPROST 0.005% OP SOLN 2.5 ML BTL OPL SCH (20:32)
[2024-12-20] MEDS: TIMOLOL GFS 0.25% OPH SOLN 74 DROPS/5 ML BTL OPL SCH (08:33)
[2024-12-20] MEDS: ENOXAPARIN INJ 40 MG/0.4 ML SYR SQ SCH (08:34)
[2024-12-20] MEDS: LIDOCAINE 5% 1 PATCH TD SCH (08:35)
--- NOTE | 2024-12-20 12:31 | Hospitalist Progress Note ---
Date of Service December 20, 2024 Assessment & Plan (1) Intractable low back pain: Plan: Pt is an 84yo female with a PMH of hyperlipidemia, CAD, s/p left CEA 2017, history of colon cancer s/p hemicolectomy and chemotherapy 2019, osteopenia, and vitamin D deficiency. She presented via EMS due to severe right sided hip pain and inability to bear weight. Intractable back pain/ambulatory dysfunction - pt went from sitting to standing and developed extreme pain and inability to bear weight; no trauma - hip/pelvic XR showing degenerative changes, no acute fracture; lumbar spine CT showing spondylitic changes in multiple levels with posterior disc osteophyte c omplex and facet hypertrophy, spinal canal and neural foraminal stenosis; CTAP unrevealing - s/p dexamethasone on admission and lidocaine patch - suspect pain secondary to acute muscle spasm; pain improved since yesterday with addition of 4g mag and volatren- will do 4g of mag again today and continue voltaren gel and heat PRN - continue tylenol TID, lidocaine patch, ibuprofen PRN - awaiting PT/OT eval Hyponatremia- resolved - Na 134 on admission - s/p 500cc NS on admission Hypoxia- resolved - no documented hypoxia this hospital stay Chronic stable diagnoses: osteopenia/vitamin D deficiency continue supplement HLD/CAD s/p left CEA 2017, continue atorvastatin and ASA Hx colon cancer s/p hemicolectomy and chemotherapy 2019, stable glaucoma continue home eye drops Diet: heart healthy Code: full VTE ppx: lovenox Dispo: med/surg; suspect pt will be able to discharge home +/- home PT- awaiting PT/OT eval (2) Hyponatremia: (3) Ambulatory dysfunction: (4) Vitamin D deficiency: (5) Carotid artery narrowing: (6) Hyperlipidemia: Admission and Anticipated Discharge Date Admission Date: December 19, 2024 Supervising Physician Co-Signing Physician Notes I personally examined the patient and verified all lipscomb points of history and exam, discussed case, and agree with decision making with Dr Disla Pain doing betterstill needing a walker but able to start to get around better. Still having fairly significant pain, however. Vitals noted, in general she is awake and alert pleasant no distress. HEENT normocephalic atraumatic mucous membranes moist. Breathing unlabored no accessory muscle use good effort. Skin without rashes pallor or icterus. Post isometric relaxation muscle energy technique done for right hip external rotators focused on piriformispatient tolerated well, was able to affect some improvement in range of motion. Taught patient and family how to do this as well as simply how to stretch the muscle as well hip pain/ambulatory dysfunction -MSK - piriformis mediated -OMT done again today, stretches taught. -IV mag seems to have helpedrepeat today, continue topical diclofenac -scheduled tylenol, prn toradol for pain -PT/OT input appreciatedpatient will be safe for home once her pain is doing better. otherwise as above, Hopefully home in the next 1-2 days depending on ongoing progress Subjective Pt notes her pain is much better today but not as bad as yesterday. She was able to ambulate to the bathroom with a walker. She lives at home alone and uses no assistive devices to get around. No new concerns. Review of Systems Review of Systems: As per HPI Physical Exam Physical Exam: Constitutional: well appearing, no acute distress HEENT: normocephalic, no conjunctival injection CV: clincally well perfused Respiratory: no increased work of breathing MSK: no gross deformities noted Neuro: alert, oriented, no FND noted Psych: mood and affect congruent Results & Data Results & Data Vital Signs (Past 12 Hours) Vital Signs Temp Pulse Pulse Resp BP Pulse Ox O2 Del Method 12/20/24 09:51 60 12/20/24 07:43 36.5 C 60 20 127/63 94 Room Air 12/20/24 03:08 36.7 C 59 L 16 138/67 96 Room Air Resident Activity Tracking Resident Involvement: Resident Care Provided Care Provided: Adult Hospital Medicine
[2024-12-20] MEDS ORDERED: IBUPROFEN 600 MG TAB PO PRN (12:40)
[2024-12-20] MEDS: MAGNESIUM SULFATE / D5W 1 GM/100 ML BAG IV SCH (13:24)
--- NOTE | 2024-12-20 13:35 | Billing Data ---
Date of Service December 20, 2024 Coding Level of Care Code 15152 SUB INP/OBS CARE MIN
[2024-12-21] MEDS: DOCUSATE SODIUM 100 MG CAP PO PRN (07:55)
--- NOTE | 2024-12-21 13:20 | Hospitalist Progress Note ---
Date of Service December 21, 2024 Assessment & Plan (1) Intractable low back pain: Plan: Pt is an 84yo female with a PMH of hyperlipidemia, CAD, s/p left CEA 2017, history of colon cancer s/p hemicolectomy and chemotherapy 2019, osteopenia, and vitamin D deficiency. She presented via EMS due to severe right sided hip pain and inability to bear weight. Intractable back pain/ambulatory dysfunction - pt went from sitting to standing and developed extreme pain and inability to bear weight; no trauma - hip/pelvic XR showing degenerative changes, no acute fracture; lumbar spine CT showing spondylitic changes in multiple levels with posterior disc osteophyte c omplex and facet hypertrophy, spinal canal and neural foraminal stenosis; CTAP unrevealing - s/p dexamethasone on admission and lidocaine patch - suspect pain secondary to acute muscle spasm; pain improved since yesterday with addition of 4g mag and volatren- will do 4g of mag again today and continue voltaren gel and heat PRN - continue tylenol TID, lidocaine patch, ibuprofen PRN - awaiting PT/OT eval Hyponatremia- resolved - Na 134 on admission - s/p 500cc NS on admission Hypoxia- resolved - no documented hypoxia this hospital stay Chronic stable diagnoses: osteopenia/vitamin D deficiency continue supplement HLD/CAD s/p left CEA 2017, continue atorvastatin and ASA Hx colon cancer s/p hemicolectomy and chemotherapy 2019, stable glaucoma continue home eye drops Diet: heart healthy Code: full VTE ppx: lovenox Dispo: med/surg; suspect pt will be able to discharge home +/- home PT- awaiting PT/OT eval (2) Hyponatremia: (3) Ambulatory dysfunction: (4) Vitamin D deficiency: (5) Carotid artery narrowing: (6) Hyperlipidemia: Admission and Anticipated Discharge Date Admission Date: December 19, 2024 Supervising Physician Co-Signing Physician Notes I also saw the patient confirmed lipscomb portions of the clinical history and physical examination. She tells us this morning that her hip pain is improved compared to admission. She would like to go home; still undergoing physical therapy here in the hospital. Not clear at this time if she would be safe to go home - may be able to reach goals with the patient physical therapy here and improved pain control. Will continue physical therapy. Await recommendations. Continue current pain control, which seems to be working well. I agree with the impression and plan as noted in the resident documentation. Subjective Patient seen and evaluated at bedside this morning. No acute events overnight. OVerall hip pain is improving. Continuing to work with PT/OT to meet goals. May require short term rehab. No acute concerns today. Review of Systems Review of Systems: reviewed, per HPI Physical Exam Physical Exam: Constitutional: well-appearing, no acute distress HEENT: NCAT, no conjunctival injection CV: well perfused Resp: no increased work 0f breating GI: nondistended MSK: no gross deformities appreciated Skin: warm, dry, no rash appreciated Neuro: alert, oriented, no focal neurologic deficit appreciated Results & Data Results & Data Vital Signs (Past 12 Hours) Vital Signs Temp Pulse Pulse Resp BP BP Pulse Ox 12/21/24 10:57 36.9 C 66 18 127/73 95 12/21/24 07:12 36.5 C 64 20 135/76 96 12/21/24 07:00 68 O2 Del Method 12/21/24 10:57 Room Air 12/21/24 07:12 Room Air 12/21/24 07:00 Resident Activity Tracking Resident Involvement: Resident Care Provided Care Provided: Adult Hospital Medicine
[2024-12-22 07:38] VITALS: BP 143/75; RESP 16; O2SAT 96
--- NOTE | 2024-12-22 10:19 | Discharge Summary ---
Date of Service December 22, 2024 Admission HPI Per Admitting Provider Patient is an 84-year-old female with a past medical history of hyperlipidemia, CAD, s/p left CEA 2017, history of colon cancer s/p hemicolectomy and chemotherapy 2018, osteopenia, vitamin D deficiency. She presented via EMS due to severe right sided hip pain and inability to bear weight. She denies any trauma to the hip. The pain began after she went from sitting to standing getting off the toilet. She is being admitted for intractable back and hip pain along with hypoxia secondary to opioid use. Patient seen at bedside with 2 daughters present. She stated that she was on her exercise bike for the first time in a while this evening and was only on it for roughly 5 minutes when she had to go to the bathroom. When she tried to get up from the toilet, she started limping and was unable to bear weight on her right leg due to severe hip pain. She stated that the pain started in her hip and eventually migrated to her low back and Radiates down her leg when she tries to move it. She was completely unable to bear weight and her daughters called the EMS. It was reported that she received 70 mcg of fentanyl in the EMS and then an additional 150 mcg of fentanyl along with IV Tylenol in the ED. Patient stated she has also had charley horses of her left leg since arrival to the ED. She denies any bladder or bowel incontinence. She denies any trauma to the area. She did fall on her right hip 3 to 4 years ago and had no significant issues with her hip since then. She denies any hip replacements. She denies chronic back pain. She denies history of COPD or asthma, does not use oxygen at baseline. Patient denies dizziness, lightheadedness, dyspnea, chest pain, abdominal pain, nausea, vomiting, diarrhea, numbness, tingling. She was a former smoker but quit roughly 22 years ago. She does not drink alcohol. She lives at home alone. She denies past history of DM or previous VTE. She does not use CPAP or BiPAP at home. She did take her a.m. medications yesterday but did not take her evening medication which consists of atorvastatin. She wishes to be full code at this time. Admission Exam Per Admitting Provider Physical Exam: The patient is awake, alert and oriented 3, well developed and well nourished, normocephalic and atraumatic, in no acute distress. Non-toxic appearing. HEENT- EOMI, mucous membranes dry. Hearing grossly intact. Heart-normal S1 and S2. No murmurs, rubs or gallops. Lungs-clear bilaterally, no respiratory distress, no accessory muscle use. Abdomen-normal bowel sounds and soft. No ascites noted. Non-tender. Extremities- no clubbing, cyanosis, or edema. Psychiatric-normal affect. Musculoskeletal: Hip: + limited ROM of hip Unable to lift right leg off bed more than 2 inches. Left leg motion WNL. No sensory deficits 5/5 strength bilateral with plantarflexi on and dorsi flexion.+straight leg test right LE Principal Diagnosis see attending documentation Discharge Exam Constitutional: well-appearing, no acute distress HEENT: NCAT, no conjunctival injection CV: well perfused Resp: no increased work 0f breating GI: nondistended MSK: no gross deformities appreciated Skin: warm, dry, no rash appreciated Neuro: alert, oriented, no focal neurologic deficit appreciated Discharge Data Allergies Allergy/AdvReac Type Severity Reaction Status Date / Time Sulfa (Sulfonamide AdvReac Mild Drowsy Verified 07/06/24 09:58 Antibiotics) Consultations 12/19/24 03:06 ED Decision to Admit Stat Ordered Studies 12/18/24 22:55 CT lumbar spine wo con Stat 12/19/24 03:38 CT Abd and Pelvis [CT abd pelvis wo con] Urgent Hospital Course (1) Intractable low back pain: Pt is an 84yo female with a PMH of hyperlipidemia, CAD, s/p left CEA 2017, history of colon cancer s/p hemicolectomy and chemotherapy 2018, osteopenia, and vitamin D deficiency. She presented via EMS due to severe right sided hip pain and inability to bear weight. Intractable back pain/ambulatory dysfunction - pt went from sitting to standing and developed extreme pain and inability to bear weight; no trauma - hip/pelvic XR showing degenerative changes, no acute fracture; lumbar spine CT showing spondylitic changes in multiple levels with posterior disc osteophyte complex and facet hypertrophy, spinal canal and neural foraminal stenosis; CTAP unrevealing - s/p dexamethasone on admission and lidocaine patch - suspect pain secondary to acute muscle spasm; pain improved with addition of 4g mag and Voltaren - continue Tylenol TID, lidocaine patch, ibuprofen PRN - awaiting PT/OT eval Hyponatremia- resolved Hypoxia- resolved - no documented hypoxia this hospital stay Chronic stable diagnoses: osteopenia/vitamin D deficiency continue supplement HLD/CAD s/p left CEA 2018, continue atorvastatin and ASA Hx colon cancer s/p hemicolectomy and chemotherapy 2019, stable glaucoma continue home eye drops Diet: heart healthy Code: full VTE ppx: lovenox Dispo: med/surg; suspect pt will be able to discharge home +/- home PT- awaiting PT/OT eval (2) Hyponatremia: (3) Ambulatory dysfunction: (4) Vitamin D deficiency: (5) Carotid artery narrowing: (6) Hyperlipidemia: Total Time Total Time Spent Total Time Spent (In Minutes): see attending documentation Discharge Plan Discharge Items Patient Disposition: Home - Self-Care Reason For Visit: INTRACTABLE HIP PAIN, AMBULATORY DYSFUNCTION Discharge Diagnosis: Muscle spasm Condition on Discharge: Good Activity: Resume your previous activity Activity Comment: as tolerated Non-emergency contact: Primary Care Provider Call non-emergency contact if: you have any medication questions, your symptoms worsen, your pain is not controlled and your pain is worsening Follow-up/Referrals: Suze Polanco DO [Primary Care Provider] - 12/28/24 9:20 am Diet: Heart Healthy Addtl Attending Provider Instructions: You were admitted to the hospital for muscle spasm. You were treated with Voltaren gel, heat, lidocaine patch. You can continue to use these at home. A discharge summary will be sent to your primary care physician to ensure continuity of care. Please bring this discharge summary with you to your next office appointment so that your provider can review it at that time. Follow-up appointments: Make a follow-up appointment with your PCP within the next week. It is very important that you follow up with them shortly after discharge from the hospital. Keep all your follow-up appointments as already scheduled. If you cannot make an appointment, notify your provider. Medications: Your medication list has been reviewed and reconciled upon discharge to ensure accuracy and continuity of care. An updated list of all your medications is included with your hospital discharge paperwork. Please review this list cl osely, and make note of any changes. Take your medications as instructed; do not skip a dose of your medicines. Make sure all of your doctors know every medicine you are taking (including [id number] medicines, vitamins, and supplements). Call your primary care provider before taking any new medicines (including [id number] medicines, vitamins, and supplements), because some of these may interact with your current medications, or may make your symptoms worse. Tell your primary care provider if you cannot afford your medications. CONTACT YOUR PRIMARY CARE PROVIDER if you experience any of the following: Difficulty following your treatment plan, or difficulty taking medications CALL 911 OR GO TO THE EMERGENCY DEPARTMENT if you experience any of the following: Sudden, severe abdominal pain or nausea/vomiting Severe chest pain, or chest pain that radiates (moves) to your jaw or arm Sudden, severe shortness of breath or difficulty breathing Thank you for allowing us to participate in your care. Pending Studies at Discharge: No Stand-Alone Forms: [facility] Medications and DC Order Prescriptions: Continued atorvastatin 40 mg tablet 40 mg PO PM Qty: 90 1RF calcium carbonate-vitamin D3 [Calcium 600 with Vitamin D3] 1 dose PO BID aspirin [Adult Low Dose Aspirin] 81 mg tablet,delayed release (DR/EC) 81 mg PO PM Complete MV Adult 50 Plus 0.4 mg-300 mcg- 250 mcg tablet 1 tab PO DAILY Lumigan 0.01 % drops ophthalmic (eye) PreserVision AREDS-2 250-90-40-1 mg Capsule 1 tab PO BID latanoprost 0.005 % drops timolol maleate 0.25 % drops Lumigan 0.01 % drops Discharge Orders: Discharge Order (Routine); Ordered 12/22/24 Ordered By: Pratik Lopez Admission Data Admit Date/Time: 12/21/24 14:39 Attending Provider: Hitesh Freedman Admit Provider: Hao Kahn Primary Care Provider: Szue Polanco Other Providers: Hao Kahn Supervising Physician Co-Signing Physician Notes Attending attestation Pt seen and examined in concert with Dr. Lopez. In agreement with the documented findings as noted in the resident documentation with any exceptions or additions as noted here. Resting comfortably in bed at reported baseline. [place] really well with working w/ PT today. On examination, S1/S2 nl RRR no MCG. CTAB. Abd NT/ND BS+ve. VS as noted. Ambulatory dysfunction with lower back pain - PT/OT assessment safe for outpatient follow up - continue pain management as noted and close outpatient follow up Else see resident documentation as noted. Total attending physician time spent with this patient's care on the day of discharge: 32 minutes. Resident Activity Tracking Resident Involvement: Resident Care Provided Care Provided: Adult [facility]
[2024-12-22 15:01] VITALS: PULSE 69; TEMP 98.1
== END 2024-12-22 17:17 | disposition home or self-care (01) | DRG 556 ==
LOC: EDINP 22:35 → ED 22:35 → SUATTDRO 12-19 03:41 → 2N 12-19 04:20 → SUATTDRO 12-21 14:39 → 3W 12-22 04:08
DX: Z92.21 Personal history of antineoplastic chemotherapy; I25.10 Atherosclerotic heart disease of native coronary artery without angina pectoris; Z85.038 Personal history of other malignant neoplasm of large intestine; E78.5 Hyperlipidemia, unspecified; E87.1 Hypo-osmolality and hyponatremia; M85.80 Other specified disorders of bone density and structure, unspecified site; M62.838 Other muscle spasm; Z79.82 Long term (current) use of aspirin; T40.415A Adverse effect of fentanyl or fentanyl analogs, initial encounter; Z79.899 Other long term (current) drug therapy; R09.02 Hypoxemia; Z87.891 Personal history of nicotine dependence; Z88.2 Allergy status to sulfonamides; H40.9 Unspecified glaucoma; E55.9 Vitamin D deficiency, unspecified; M54.16 Radiculopathy, lumbar region; Z90.49 Acquired absence of other specified parts of digestive tract; R26.9 Unspecified abnormalities of gait and mobility